=== PATIENT | male | born 1970 | race Caucasian/White ===

== ENCOUNTER 2019-09-12 12:50 | Emergency (ER) | payer MEDICARE, MEDICAID ==
[~2019-09-12] VITALS: Ht 175.3 cm; Wt 70.0 kg
[~2019-09-12 12:50] MED LIST: FINA5TAB42 PO; LORA2TAB PO; OXCA600T9 PO; QUET300T19 PO; TAMS0.4C32 PO
[2019-09-12 13:08] VITALS: BP 112/74
== END 2019-09-12 13:35 | disposition home or self-care (01) ==
LOC: ER 12:51
DX: Z00.00 Encounter for general adult medical examination without abnormal findings (principal); F15.10 Other stimulant abuse, uncomplicated; F20.9 Schizophrenia, unspecified; F12.90 Cannabis use, unspecified, uncomplicated; Z98.890 Other specified postprocedural states; Z72.89 Other problems related to lifestyle; Z56.0 Unemployment, unspecified; Z88.8 Allergy status to other drugs, medicaments and biological substances; Z79.899 Other long term (current) drug therapy
CPT/HCPCS: 99281

== ENCOUNTER 2020-09-19 14:41 | Emergency (ER) | payer MEDICARE, MEDICAID ==
[~2020-09-19] VITALS: Ht 175.3 cm; Wt 59.1 kg
[2020-09-19 15:28] LABS: BASOPHILS # (AUTO) 0.1 X10'3 (0-0.2); BASOPHILS % (AUTO) 0.6 % (0-1); EOSINOPHILS % (AUTO) 0.1 % (0-6); HEMATOCRIT 43.2 % (42.0-52.0); HEMOGLOBIN 14.8 g/dl (14.0-17.9); LYMPHOCYTES # (AUTO) 1.3 X10'3 (1.1-4.8); MEAN CORPUSCULAR HEMOGLOBIN 31.2 PG (27.0-31.0); MEAN CORPUSCULAR HGB CONC 34.2 g/dL (33.0-36.5); MEAN CORPUSCULAR VOLUME 91.2 FL (78-98); MEAN PLATELET VOLUME 8.9 FL (7.4-10.4); MONOCYTES # (AUTO) 0.9 X10'3 (0-0.9); MONOCYTES % (AUTO) 11.3 % (2-12); PLATELET COUNT 359 X10'3 (140-440); RED BLOOD COUNT 4.74 X10'6 (4.70-6.10); RED CELL DISTRIBUTION WIDTH 14.5 % (11.5-14.5); WHITE BLOOD COUNT 8.3 X10'3 (4.5-11.0)
[2020-09-19 15:39] VITALS: BP 142/83
[2020-09-19 15:40] LABS: ALANINE AMINOTRANSFERASE 29 U/L (12-78); ALBUMIN 4.1 G/DL (3.4-5.0); ALBUMIN/GLOBULIN RATIO 1.3 (1.1-1.5); ALKALINE PHOSPHATASE 116 IU/L (46-116); ANION GAP 11 (8-16); ASPARTATE AMINO TRANSFERASE 26 U/L (10-37); BILIRUBIN,TOTAL 0.8 MG/DL (0.1-1.0); BLOOD UREA NITROGEN 15 MG/DL (7-18); BUN/CREATININE RATIO 14.6 (5.4-32.0); CALCIUM 9.2 MG/DL (8.5-10.1); CHLORIDE 105 MMOL/L (99-107); CREATININE 1.03 MG/DL (0.60-1.10); GLUCOSE 82 MG/DL (70-104); POTASSIUM 3.6 MMOL/L (3.5-5.1); SODIUM 142 MMOL/L (135-145); TOTAL CARBON DIOXIDE 25.6 MMOL/L (24-32); TOTAL PROTEIN 7.2 G/DL (6.4-8.2); eGFR 76 ML/MIN
[2020-09-19 15:41] LABS: ETHANOL < 0.010 GM/DL (0.0-0.010)
[2020-09-19 17:01] LABS: URINE AMPHETAMINE SCREEN NEGATIVE (Neg); URINE BARBITUATE SCREEN NEGATIVE (Neg); URINE BENZODIAZEPINES SCREEN NEGATIVE (Neg); URINE CANNABINOID SCREEN NEGATIVE (Neg); URINE COCAINE SCREEN NEGATIVE (Neg); URINE METHADONE SCREEN NEGATIVE (Neg); URINE OPIATE SCREEN NEGATIVE (Neg); URINE PHENCYCLIDINE SCREEN NEGATIVE (Neg)
--- NOTE | 2020-09-19 17:01 | NUR ---
Received pt from main ER. Pt responding to internal stimuli and delusional thought content, talking nonstop nonsense to the wall. Pt is redirectable when he gets too loud.
--- NOTE | 2020-09-19 17:11 | NUR ---
PACKET FAXED TO [facility]
[2020-09-19 17:29] LABS: CLARITY,URINE CLEAR (Clear); COLOR,URINE YELLOW (Yellow); GLUCOSE, URINE NEGATIVE (Neg); KETONES,URINE 15 mg/dl (Neg); LEUKOCYTE ESTERASE ,URINE NEGATIVE (Neg); NITRITES, URINE NEGATIVE (Neg); OCCULT BLOOD,URINE NEGATIVE (Neg); PH,URINE 6.5 (4.8-8.0); PROTEIN,URINE NEGATIVE (Neg); UROBILINOGEN,URINE 0.2 E.U/dL (0.2-1.0)
[2020-09-19 17:31] LABS: UA COLLECTION TYPE URINAL
--- NOTE | 2020-09-19 17:35 | NUR ---
Pt walked to bathroom and then AWOL'd out the back door. Security notified and [employer] notified and notified. Security was unable to stop pt, but did observe him running across [address].
--- NOTE | 2020-09-19 17:38 | NUR ---
[facility] NOTIFIED OF PTS ELOPEMENT.
== END 2020-09-19 17:40 | disposition home or self-care (01) ==
LOC: ER 14:41
DX: F28 Other psychotic disorder not due to a substance or known physiological condition (principal); Z20.822 Contact with and (suspected) exposure to COVID-19; F20.9 Schizophrenia, unspecified; F12.90 Cannabis use, unspecified, uncomplicated; F15.90 Other stimulant use, unspecified, uncomplicated; Z56.0 Unemployment, unspecified; Z72.89 Other problems related to lifestyle; Z88.8 Allergy status to other drugs, medicaments and biological substances; Z79.899 Other long term (current) drug therapy
CPT/HCPCS: 36415; 80053; 80305; 80320; 81003; 85025; 87635; 99285; C9803

== ENCOUNTER 2020-12-11 12:34 | Inpatient (IN) | payer MEDICARE, MEDICAID ==
[~2020-12-11] VITALS: Ht 175.3 cm; Wt 66.8 kg
[~2020-12-11 12:34] MED LIST changes: -QUET300T19 PO; +QUET300T20 PO
[2020-12-11] MEDS ORDERED: LORazepam 2 mg/ml vial IM ONE (13:40)
[2020-12-11] MEDS ORDERED: haloperidol lactate 5mg/ml inj IM ONE (13:40)
[2020-12-11] MEDS ORDERED: diphenhydrAMINE 50 mg/ml inj IM ONE (13:40)
[2020-12-11 13:58] LABS: BASOPHILS % (AUTO) 0.8 % (0-1); EOSINOPHILS % (AUTO) 0.4 % (0-6); HEMATOCRIT 45.1 % (42.0-52.0); HEMOGLOBIN 15.3 g/dl (14.0-17.9); LYMPHOCYTES # (AUTO) 1.5 X10'3 (1.1-4.8); MEAN CORPUSCULAR HEMOGLOBIN 31.5 PG (27.0-31.0); MEAN CORPUSCULAR VOLUME 92.7 FL (78-98); MEAN PLATELET VOLUME 8.4 FL (7.4-10.4); MONOCYTES # (AUTO) 0.6 X10'3 (0-0.9); MONOCYTES % (AUTO) 9.7 % (2-12); NEUTROPHILS # (AUTO) 3.8 X10'3 (1.8-7.7); NEUTROPHILS % (AUTO) 64.1 % (42-75); PLATELET COUNT 359 X10'3 (140-440); RED BLOOD COUNT 4.86 X10'6 (4.70-6.10); RED CELL DISTRIBUTION WIDTH 13.6 % (11.5-14.5); WHITE BLOOD COUNT 5.9 X10'3 (4.5-11.0)
[2020-12-11 14:13] LABS: ALANINE AMINOTRANSFERASE 30 U/L (12-78); ALBUMIN 4.4 G/DL (3.4-5.0); ALBUMIN/GLOBULIN RATIO 1.5 (1.1-1.5); ALKALINE PHOSPHATASE 120 IU/L (46-116); ANION GAP 11 (8-16); ASPARTATE AMINO TRANSFERASE 31 U/L (10-37); BILIRUBIN,TOTAL 1.1 MG/DL (0.1-1.0); BLOOD UREA NITROGEN 9 MG/DL (7-18); BUN/CREATININE RATIO 10.2 (5.4-32.0); CHLORIDE 104 MMOL/L (99-107); CREATININE 0.88 MG/DL (0.60-1.10); GLUCOSE 100 MG/DL (70-104); POTASSIUM 3.6 MMOL/L (3.5-5.1); SODIUM 142 MMOL/L (135-145); TOTAL CARBON DIOXIDE 27.5 MMOL/L (24-32); TOTAL PROTEIN 7.4 G/DL (6.4-8.2); eGFR > 90 ML/MIN
[2020-12-11 14:23] LABS: ETHANOL < 0.010 GM/DL (0.0-0.010)
--- NOTE | 2020-12-11 14:38 | NUR ---
Pt transferred from main ER to ER Overflow, ambulatory and with ER staff. Pt changed into green scrubs and was cooperative. Pt's speech is disorganized with elements of reality. Pt was brought in on a 5150 for GD by Jr after being found in apt. with no food. Pt's [facility] worker was also with Pt when brought in. 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 Pt has no physical complaints at this time. Pt layed in bed and fell asleep quickly, after having received Ativan, benedryl, and haldol Im. Addendum: 12/11/20 at 1510 by DSALVATO Correction: 5150 was written by [facility].
[2020-12-11 14:40] LABS: URINE AMPHETAMINE SCREEN NEGATIVE (Neg); URINE BARBITUATE SCREEN NEGATIVE (Neg); URINE BENZODIAZEPINES SCREEN NEGATIVE (Neg); URINE CANNABINOID SCREEN NEGATIVE (Neg); URINE COCAINE SCREEN NEGATIVE (Neg); URINE METHADONE SCREEN NEGATIVE (Neg); URINE OPIATE SCREEN NEGATIVE (Neg); URINE PHENCYCLIDINE SCREEN NEGATIVE (Neg)
[2020-12-11 14:52] LABS: CLARITY,URINE CLEAR (Clear); COLOR,URINE YELLOW (Yellow); GLUCOSE, URINE NEGATIVE (Neg); KETONES,URINE NEGATIVE (Neg); LEUKOCYTE ESTERASE ,URINE NEGATIVE (Neg); NITRITES, URINE NEGATIVE (Neg); OCCULT BLOOD,URINE NEGATIVE (Neg); PROTEIN,URINE NEGATIVE (Neg); UROBILINOGEN,URINE 0.2 E.U/dL (0.2-1.0)
[2020-12-11 14:55] LABS: UA COLLECTION TYPE NON-SPECIFIED
[2020-12-11] MEDS ORDERED: LOXA25CA PO (16:03)
--- NOTE | 2020-12-11 19:56 | NUR ---
The patient was awakened for his evening meal. He stated he was here to be stabilized on his medications. He denies physical complaints.
[2020-12-11] MEDS: LOXAPINE SUCCINATE 25 MG CAPSULE PO SCH (20:52)
--- NOTE | 2020-12-11 21:17 | NUR ---
The patient appears to be sleeping at this time.
--- NOTE | 2020-12-11 22:32 | NUR ---
The patient appears to be sleeping
--- NOTE | 2020-12-12 00:07 | NUR ---
The patient appears to be sleeping
--- NOTE | 2020-12-12 02:00 | NUR ---
The patient appears to be sleeping
--- NOTE | 2020-12-12 04:01 | NUR ---
The patient appears to be sleeping
--- NOTE | 2020-12-12 04:54 | NUR ---
Patient up to use the bathroom. He is refusing to have a covid test.
--- NOTE | 2020-12-12 07:00 | NUR ---
Received pt asleep in bed without signs of distress.
[2020-12-12] MEDS: LOXAPINE SUCCINATE 25 MG CAPSULE PO SCH ×2 (08:24→20:00)
[2020-12-12] MEDS ORDERED: LORazepam 1 MG tablet PO ONE (08:35)
--- NOTE | 2020-12-12 09:00 | NUR ---
Pt up for breakfast and was cooperative with am medications. Around 0835, pt just bolted towards the back door and after being stopped by staff, he was able to be verbally redirected back to his bed. notified and gave order for ativan 1mg PO which was given.
--- NOTE | 2020-12-12 11:00 | NUR ---
Pt awoke once to drink some water, but otherwise has been sleeping.
--- NOTE | 2020-12-12 13:00 | NUR ---
County worker and psychologist came to assess pt. Pt was sedated and kept falling asleep during assessment. Pt sleeping without complaints since they left.
--- NOTE | 2020-12-12 15:00 | NUR ---
Pt sitting up in bed now eating the lunch he has slept through. Pt cooperative with COVID nasal swab.
--- NOTE | 2020-12-12 17:00 | NUR ---
Pt lying asleep in bed in no distress.
[2020-12-12] MEDS ORDERED: clonazePAM 0.5mg tablet PO PRN (17:55)
--- NOTE | 2020-12-12 19:00 | NUR ---
The patient is restless and stating he needed benadryl. He is focused on marlo able to back to his own place. He is disheveled. He gives no eye contact.
[2020-12-12] MEDS: clonazePAM 0.5mg tablet PO SCH (20:00)
--- NOTE | 2020-12-12 21:03 | NUR ---
The patient is refusing all of his HS medications stating he doesn't need them and that "I'm my own person" and that he doesn't need medications. He has poor insight and judgement. He is not agitated and he could not be coaxed into taking his medications
--- NOTE | 2020-12-12 23:34 | NUR ---
The patient appears to be sleeping but awake periodically. He continues to refuse medications.
--- NOTE | 2020-12-13 00:37 | NUR ---
The patient appears to be sleeping
--- NOTE | 2020-12-13 02:45 | NUR ---
The patient appears to be sleeping
--- NOTE | 2020-12-13 03:56 | NUR ---
The patient up periodically to use the bathroom. He is currently resting on his bed.
--- NOTE | 2020-12-13 05:31 | NUR ---
The patient currently appears to be sleeping but has been awake frequently during the night
[2020-12-13] MEDS: diphenhydrAMINE 25mg capsule PO PRN ×2 (05:49→19:53)
--- NOTE | 2020-12-13 05:52 | NUR ---
The patient awakened for vital signs and complain of EPS. Patient's tongue slightly protruding. He was given benadryl
--- NOTE | 2020-12-13 06:16 | NUR ---
The patient is clearly irritable and angry. He is talking to himself. He did accept PRN bertinpin
[2020-12-13] MEDS: clonazePAM 0.5mg tablet PO SCH ×2 (08:00→19:52)
[2020-12-13] MEDS: LOXAPINE SUCCINATE 25 MG CAPSULE PO SCH ×2 (08:54→19:53)
[2020-12-13] MEDS ORDERED: benztropine 1 mg/ml 2ml ampule IM ONE (15:45)
[2020-12-13] MEDS ORDERED: diphenhydrAMINE 50 mg/ml inj IM ONE (15:45)
--- NOTE | 2020-12-13 15:45 | NUR ---
Dr Stevenson notified of patient complaints of dystonic movement of his tongue. Orders received.
--- NOTE | 2020-12-13 19:25 | NUR ---
Pt has been asleep since start of shift.
--- NOTE | 2020-12-13 21:52 | NUR ---
Pt awakened for HS meds. Per pt he has not been asleep. Pt stated the whole 5150 was a mistake "it was brought on by someone who was not paying attention." Pt repeated several times he was just floating on a air mattress on the bowen" He was unable to provide any more details abour how he came to be here. Pt cooperative and med compliant.
--- NOTE | 2020-12-14 00:29 | NUR ---
Pt up x1 independantly to BR. The rest of the time the Pt appears to be sleeping although it has been noisy on the unit due to a confused pt.
[2020-12-14] MEDS: clonazePAM 0.5mg tablet PO SCH ×2 (07:42→18:58)
[2020-12-14] MEDS: LOXAPINE SUCCINATE 25 MG CAPSULE PO SCH ×2 (07:42→18:58)
--- NOTE | 2020-12-14 08:12 | NUR ---
0600 recieved report from Sunita GALVAN, patient resting most of the night. Patient denies all reason he was brouight to ER. 0800 AM medication passed, patient states "today is go home day rigth?", this engineering writer informed patietn that he will be seen today and this topic will be discussed.
--- NOTE | 2020-12-14 08:57 | NUR ---
0900 laxmi is sleeping in bed, just finished 100% of breakfast
--- NOTE | 2020-12-14 08:57 | NUR ---
0900 [facility] here, Sher is updating his 5150 as the [facility] is planning on conserving patient due to failed out patient treatment. Patient understood the news and was not happy. Patient did go back to sleep after [facility] finished interview.
--- NOTE | 2020-12-14 11:30 | NUR ---
Patient is resting quietly, appears to be sleeping
--- NOTE | 2020-12-14 13:25 | NUR ---
1325 Patient eatting lunch at bed side Alert and oriented to Name, place but not situation, patient states today should be the day I am leaving, it should be know that [facility] is planning on conserving patient due to failed out patiet treatment plans.
--- NOTE | 2020-12-14 13:42 | NUR ---
Ginger from [facility] states [facility] accepted patient
--- NOTE | 2020-12-14 15:47 | NUR ---
Patient is resting quietly but easily arrouse when spoke to.
[2020-12-14] MEDS ORDERED: diphenhydrAMINE 25mg capsule PO ONE (16:35)
--- NOTE | 2020-12-14 16:37 | NUR ---
Patient c/o Dr. Mihaela boyd V/O Benadryl 25mg po one time, medication administered patient swallowed with a glass of water.
--- NOTE | 2020-12-14 16:40 | NUR ---
Mother called to inform patient that he left his wallet in her car.
--- NOTE | 2020-12-14 17:20 | NUR ---
Patient resting in bed stated that the benadryl helped hi "stiff tounge"
[2020-12-14] MEDS ORDERED: acetaminophen 325mg tablet PO PRN (19:45)
[2020-12-14] MEDS ORDERED: magnesium hydroxide 30ml (MOM) UD suspension PO PRN (19:45)
[2020-12-14] MEDS ORDERED: loperamide 2mg capsule PO PRN (19:45)
[2020-12-14] MEDS ORDERED: mag hydrox/Alum hydrox/simeth 30ml oral suspension PO PRN (19:45)
[2020-12-14 20:00] VITALS: BP 103/63
--- NOTE | 2020-12-14 20:31 | NUR ---
[facility] ADMISSION NOTE: LEGAL HOLD: 5150 for GD Psych Hx: Schizophrenia, mood disorder, Meth use. Med Hx: No significant medical issues. S/P: Rt ankle repair, appendectomy. REASON FOR ADMISSION: Clients mother contacted EMS because the client was not eating, drinking, or performing basic ADL's. Client refused to be transported to the ED by EMS. [employer] was notified and brought client to hospital. The client was agitated upon arrival to the ED, and received IM PRN meds for agitation. Client is known to [facility] and has had prior admissions. THIS SHIFT: Client arrived on unit at 19:48, accompanied by Alexander Escamilla. His personal belongings were inventoried and a 2 RN Skin assessment was performed by Sunita Varghese RN and this RN. Client declined shower. He is disheveled and has poor personal hygiene. He will be encouraged to shower. Client had snack and was shown to his room. He is pleasant and cooperative. Client moves and speaks slowly. His affect is blunted and his mood appears depressed.
[2020-12-15 07:40] LABS: HEMOGLOBIN A1C 5.5 % (4.5-6.2)
[2020-12-15 07:43] LABS: CHOL/HDL RATIO 3.3 (0.00-4.99); CHOLESTEROL 163 MG/DL (0-200); HDL CHOLESTEROL 50 MG/DL (35-60); LDL CHOLESTEROL 86 MG/DL (50-100); TRIGLYCERIDES 82 MG/DL (20-135)
[2020-12-15 08:00] VITALS: BP 104/68
[2020-12-15] MEDS ORDERED: clonazePAM 0.5mg tablet PO SCH (08:00)
[2020-12-15] MEDS: nicotine 21mg patch - 24 hr TD SCH (08:39)
[2020-12-15] MEDS: LOXAPINE SUCCINATE 25 MG CAPSULE PO SCH ×2 (08:39→20:49)
[2020-12-15] MEDS: clonazePAM 0.5mg tablet PO SCH ×2 (08:39→20:49)
[2020-12-15] MEDS: NICOTINE POLACRILEX 2 MG LOZENGE BC PRN ×5 (08:47→20:49)
--- NOTE | 2020-12-15 15:00 | NUR ---
Malnutrition consult: Pt admitted on 5150 w/ history of meth use. Pt noted to be transient and not consistently eating or drinking (no timeframe given). Pt is able to eat 100% of regular diet since admission. Per ED noted, pt WD/WN. EMR shows wt loss of 14kg since August 2019, though current wt not scaled. No edema noted. At this time, pt does not meet minimum 2 criteria for malnutrition given uncertainty of wt and intake hx. Will continue to monitor. Addendum: 12/15/20 at [address] Amended: Links added.
[2020-12-15] MEDS ORDERED: benztropine 1 mg/ml 2ml ampule IM ONE (15:20)
--- NOTE | 2020-12-15 17:05 | NUR ---
Nursing progress note: LEGAL HOLD: 5150 for GD Client on Involuntary status for GD Report received from nurse with use of SBAR: Jeannie Chang RN Why they are here: Clients mother contacted EMS because the client was not eating, drinking, or performing basic ADL's. Client refused to be transported to the ED by EMS. [employer] was notified and brought client to hospital. The client was agitated upon arrival to the ED, and received IM PRN meds for agitation. Client is known to [facility] and has had prior admissions. Diagnosis/presenting symptoms: Schizophrenia, mood disorder, Meth use. Assessment: What has happened this shift: Pt awake at start of shift. Pacing hallway. Withdrawn but answers direct questions. Isolates in his room, but comes out into common areas when prompted. In afternoon patients tongue is out. Pt c/o feeling like his mouth is full of tongue. IM Cogentin given which appears effective for EPS. S/I, H/I: denies A/VH: denies Sleep: 8.25 hrs per NOC ADL's: Independent with prompting Group attendance: N/A Were meds taken: yes Any med S/E: tongue sticking out. Pt c/o feeling like his mouth is full of tongue. IM Cogentin given which appears effective Mental Status Exam: Appearance: Disheveled, poor hygiene, wearing hospital scrubs Eye contact: Good Behavior: Cooperative Speech: Clear, quiet Mood: Depressed Affect: Congruent with mood Thought process: disorganized Thought Content: Poverty of thought. Cognition: A/O x3 Insight: Poor Judgment: Poor Interventions: PRN's used: Nicotine lozenge Therapeutic interventions: Maintained a safe and supportive environment, ensured contract for safety, provided clear and simple instructions, provided direction and encouragement as needed, encouraged participation on the unit, medication administration, and maintained Q 15min safety checks. Restraints/seclusion/emergency medication: IM Cogentin given for EPS Justification: Pt require medication adjustments as well as a safe and supportive environment.
[2020-12-15 20:34] VITALS: BP 123/78
--- NOTE | 2020-12-16 00:48 | NUR ---
Nursing progress note: LEGAL HOLD: 5150 for GD Client on Involuntary status for GD Report received from nurse with use of SBAR: COLE Vitale Why they are here: Clients mother contacted EMS because the client was not eating, drinking, or performing basic ADL's. Client refused to be transported to the ED by EMS. [employer] was notified and brought client to hospital. The client was agitated upon arrival to the ED, and received IM PRN meds for agitation. Client is known to [facility] and has had prior admissions. Diagnosis/presenting symptoms: Schizophrenia, mood disorder, Meth use. Assessment: What has happened this shift: Pt up pacing in mccarthy at start of shift, pauses occasionally to have animated conversations with his reflection in the window. He also spent some time talking to one of pictures in the mccarthy. 1:1 Pt admitted to auditory and visual hallucinations. "I always hear and see things, I'm 50 years old I've had mental illness all my life." Pt did not go into detail about his hallucinations. Pt maintains he should not be here. "I'm only here because my mom thinks I'm not eating" When it was pointed out to the pt that he was very thin he said. "I eat 2,500 calories a day." Pt was pleasant and cooperative with care. S/I, H/I: denies A/VH: both Sleep: asleep at this time ADL's: Independent with prompting Group attendance: N/A Were meds taken: yes Any med S/E: No tongue thrusting or other side effects this shift. Mental Status Exam: Appearance: showered today, thin, wearing hospital scrubs Eye contact: Good Behavior: Cooperative Speech: Clear, quiet Mood: Depressed Affect: Congruent with mood Thought process: disorganized Thought Content: Poverty of thought. Cognition: A/O x3 Insight: Poor Judgment: Poor Interventions: PRN's used: Nicotine lozenge Therapeutic interventions: Maintained a safe and supportive environment, ensured contract for safety, provided clear and simple instructions, provided direction and encouragement as needed, encouraged participation on the unit, medication administration, and maintained Q 15min safety checks. Restraints/seclusion/emergency medication: IM Cogentin given for EPS Justification: Pt require medication adjustments as well as a safe and supportive environment.
[2020-12-16] MEDS: NICOTINE POLACRILEX 2 MG LOZENGE BC PRN ×5 (06:07→17:20)
[2020-12-16 08:00] VITALS: BP 97/67
[2020-12-16] MEDS: LOXAPINE SUCCINATE 25 MG CAPSULE PO SCH ×2 (08:01→20:27)
[2020-12-16] MEDS: clonazePAM 0.5mg tablet PO SCH ×2 (08:01→20:27)
[2020-12-16] MEDS: nicotine 21mg patch - 24 hr TD SCH (08:02)
--- NOTE | 2020-12-16 17:37 | NUR ---
Nursing progress note: LEGAL HOLD: 5150 for GD Client on Involuntary status for GD Report received from nurse with use of SBAR: COLE Mackenzie Why they are here: Clients mother contacted EMS because the client was not eating, drinking, or performing basic ADL's. Client refused to be transported to the ED by EMS. [employer] was notified and brought client to hospital. The client was agitated upon arrival to the ED, and received IM PRN meds for agitation. Client is known to [facility] and has had prior admissions. Diagnosis/presenting symptoms: Schizophrenia, mood disorder, Meth use. Assessment: What has happened this shift: Pt awake at start of shift. Pacing hallway and asking for coffee. Pt. is socially withdrawn but visible in the milieu during the AM. Pt. isolated to his room in the afternoon and found napping. Pt. denies hearing voices but is frequently seen talking to himself and appears to be responding to internal stimuli. Pt. gives minimal answers to this RNs questions. S/I, H/I: denies A/VH: denies Sleep: 7 hrs per NOC shift report. Pt. naps intermittently throughout the day. ADL's: Independent with prompting Group attendance: N/A Were meds taken: Yes Any med S/E: None reported or observed. Mental Status Exam: Appearance: Disheveled, wearing casual attire. Eye contact: Good Behavior: Cooperative Speech: Minimal but otherwise WNL. Mood: Euthymic Affect: Congruent with mood Thought process: Thought blocking. Thought Content: Poverty of thought. Cognition: A/O X3 Insight: Poor Judgment: Poor Interventions: PRN's used: Nicotine lozenge Therapeutic interventions: Maintained a safe and supportive environment, ensured contract for safety, provided clear and simple instructions, provided direction and encouragement as needed, encouraged participation on the unit, medication administration, and maintained Q 15min safety checks. Restraints/seclusion/emergency medication: IM Cogentin given for EPS Justification: Pt require medication adjustments as well as a safe and supportive environment.
[2020-12-16 19:22] VITALS: BP 97/59
--- NOTE | 2020-12-16 23:01 | NUR ---
Nursing Progress Note: Legal hold: 5150 for grave disability Report received from Iam GALVAN with use of SBAR Why they are here: Clients mother contacted EMS because the client was not eating, drinking, or performing basic ADL's. Client refused to be transported to the ED by EMS. [employer] was notified and brought client to hospital. The client was agitated upon arrival to the ED, and received IM PRN meds for agitation. Client is known to [facility] and has had prior admissions. Assessment What has happened this shift: The patient was isolative to his bed throughout the evening but did get up for the evening snack. Once up in the general patient area he did not socialize or interact with others and once he was done eating his snack he immediately went back to bed. The patient appeared clean and well groomed and he stated that he did shower earlier in the day. He was cooperative with the evening nursing assessment but gave no eye contact. His affect was flat and his speech was minimal and monotone. He stated that "I'm always tired" When asked about his concentration and focus he stated that it was 30% of what it normally was. He was able to state what medications he was on. He denied medication side effects. There was no EPS noted. He had no protruding of his tongue. When asked if he believed he had a mental illness he simple stated, "I don't want to talk about that" He stated that he is hoping to be able to return to his home and that he planned to fight the conservatorship. When asked why he was here he replied that he had made an error in trying to run away from [facility] because he believed they were going to put him on a bus to [place]. He described his mood as "okay" He denies thoughts to harm himself or others. His insight and judgement are impaired. He has not had any behaviors that required redirection from staff. He was medication compliant. Justification of Continued Inpatient Treatment: Medication changes continue. The plan for the patient is be placed on an [facility] conservatorship as he has been unable to sustain himself in the community.
[2020-12-17] MEDS: NICOTINE POLACRILEX 2 MG LOZENGE BC PRN ×5 (07:27→18:54)
[2020-12-17 07:47] VITALS: BP 114/71
[2020-12-17] MEDS: clonazePAM 0.5mg tablet PO SCH ×2 (07:57→20:56)
[2020-12-17] MEDS: LOXAPINE SUCCINATE 25 MG CAPSULE PO SCH ×2 (07:57→20:00)
--- NOTE | 2020-12-17 07:58 | NUR ---
PSYCHOSOCIAL ASSESSMENT Iam is a 50 y/o single male who was placed on 5150 by [facility] for grave disability. He was brought to [facility] by his mother for an evaluation. He was attending to internal stimuli, had difficulty answering questions, and did not have any food. His mother was providing him with food and is no longer going to offer 3rd democrat support. Iam was unable to articulate how he would obtain food without support from his mother or [employer], "I don't know, I don't know". He had stopped taking his psychiatric medications. He also has a history of drug abuse. Iam has a long history of mental health treatment at [facility]. He was previously on [facility] 05/2015 and was released in 2017. He most recently has been homeless and staying at various hotels.He stated he has been living at [facility] for the past 18 months and believes his payee has already paid for the month of Dec.Track Production Engineer will call [facility] to inquire if this is the case. Iam presents with paranoid delusions, auditory and visual hallucinations, and is often observed to be attending to internal stimuli. He reported he has MARILOU, "I am known for my MARILOU...I am known as [facility] [employer]". He also stated, "I am an apparition study...I see apparitions". He explained apparitions are "human beings out of bodies" and went on to explain the various colors associated with apparitions. He also stated he has telepathy, "ether telepathy...I am an ether warcraft". He reported he does not want to see Dr Bentley at [facility] because Dr Bentley is from [place]. Iam stated, "I do not want ties to [place], I do not trust [employer]. I don't trust what [employer] will do to my television...they will reek havoc". He also stated, "people are invested in giving me flack". Iam reported he can provide for himself. He reported his mom brings him food and if not his mom then mental health does. It is proposal writer's understanding that his mom is withdrawing 3rd democrat support. Prior to 5150 Iam had not eaten in a couple days because no one brought him food. Iam is quite thin and emaciated. PLAN: Track Production Engineer will inquire if Iam has a room at [facility] TESSY Slade Addendum: 12/17/20 at 0801 by Marley Joseph SS Amended: Links added.
[2020-12-17] MEDS: nicotine 21mg patch - 24 hr TD SCH (08:00)
--- NOTE | 2020-12-17 08:54 | NUR ---
LPS REFERRAL [facility] and [facility] are submitting LPS paperwork on Iam. Spoke to Ofelia Guadarrama, Msw at [facility]. She reported Iam is not able to return to [facility]. His mother was renting the room for him and she is no longer willing to assist him. She reported Iam has trashed the room. He also exhibits extreme paranoia and screams a lot which is another reason he is not able to return to [facility]. His mother and [employer] have been supplying him with food. He has been throwing away food due to paranoia that it is poisoned. They have tried to put Iam on multiple 5150's in the last couple months and he either barricades himself in his room or takes off and runs away. Iam has lost quite a bit of weight recently due to not eating. He likely will say he has been eating in the motel but he really has not been. He does not utilize community resources for food either (even though he may say he can go to the [employer] for food). [facility] staff feel strongly that Iam is currently in need of conservatorship and is gravely disabled. His mother is no longer willing to offer 3rd constitution party support. Transformation Architect will pass this along to tx team. TESSY Slade
[2020-12-17] MEDS: benztropine 1mg tablet PO SCH ×2 (14:58→20:56)
--- NOTE | 2020-12-17 15:11 | NUR ---
Nursing progress note: LEGAL HOLD: 5150 for GD Client on Involuntary status for GD Report received from nurse with use of SBAR: COLE Mackenzie Why they are here: Clients mother contacted EMS because the client was not eating, drinking, or performing basic ADL's. Client refused to be transported to the ED by EMS. [employer] was notified and brought client to hospital. The client was agitated upon arrival to the ED, and received IM PRN meds for agitation. Client is known to [facility] and has had prior admissions. Diagnosis/presenting symptoms: Schizophrenia, mood disorder, Meth use. Assessment: What has happened this shift: Patient isolated to his room all day long. Iam did eat in the great room with peers. Patient answered all questions with yes and no answers. Patient continues to have mental telepathy conversation with old family and his mom. Today Iam can not come up with a reliable discharge plan with out third libertarian assistance. 1500 patient reports that he is gonna have EPS soon, "my tongue is going to stick pout, just wait and see". Dr. Fleming informed, Cogentin started as a BID order, until patient is use to taking his medication again due to the fact that he was off his mediation for a long period of time. Medication education given. A/VH: denies Sleep: Pt. naps intermittently throughout the day. ADL's: Independent with prompting Group attendance: N/A Were meds taken: Yes Any med S/E: Per patient "my tongue is going to stick out" Mental Status Exam: Appearance: Disheveled, wearing casual attire. Eye contact: Good Behavior: Cooperative Speech: Minimal but otherwise WNL. Mood: Euthymic Affect: Congruent with mood Thought process: Thought blocking. Thought Content: Poverty of thought. Cognition: A/O X3 Insight: Poor Judgment: Poor Interventions: PRN's used: Nicotine lozenge and started Cogentin as a give Therapeutic interventions: Maintained a safe and supportive environment, ensured contract for safety, provided clear and simple instructions, provided direction and encouragement as needed, encouraged participation on the unit, medication administration, and maintained Q 15min safety checks. Restraints/seclusion/emergency medication: IM Cogentin given for EPS Justification: Patient continues to be GD, patient is unable to make a safe discharge plan with out third libertarian assistance, patients mother is no longer going to assist patient is housing or food. Patient is too disorganized to navigate community resources if discharged today.
--- NOTE | 2020-12-17 16:02 | NUR ---
Served Brian with his [id number] paperwork, he accepted them without complaint and did not want anyone called. He did not appear upset but rather tired. He signed the paper and lay back down Addendum: 12/17/20 at 1640 by Brigid Villalba RN Right patient chart, wrong name. Served Iam with his [id number] paperwork.
[2020-12-17 20:24] VITALS: BP 110/87
[2020-12-17] MEDS: traZODone 50mg tablet PO PRN (20:56)
--- NOTE | 2020-12-17 22:01 | NUR ---
Nursing progress note: LEGAL HOLD: 5250 for GD Client on Involuntary status for GD Report received from Iam GALVAN with use of SBAR Why they are here: Clients mother contacted EMS because the client was not eating, drinking, or performing basic ADL's. Client refused to be transported to the ED by EMS. [employer] was notified and brought client to hospital. The client was agitated upon arrival to the ED, and received IM PRN meds for agitation. Client is known to [facility] and has had prior admissions. Diagnosis/presenting symptoms: Schizophrenia, mood disorder, Meth use. Assessment: What has happened this shift: Patient was walking up and down hallway looking very lost. Patient was antisocial and quiet. Patient kept laying down for less than five minutes then getting up and walking up and down hallway. Patient repeated this for 2 hrs before finally laying down. Patient did participate in snacks and allowed tech to get vitals. Patient did not want to take any of his medications do to a side effect he said he had to the Ativan this morning. Patient kept repeating this. Patient was finally persuaded to take medication by nurse. Nurse had to explain to patient he was in the process of being conserved and that wether or not he took his medications had an effect on that. The patient agreed to take his medications including his PRN trazodone but not his Ativan. Patient had an incontinent episode and was assisted in being cleaned up. Patient was offered pullup briefs but patient stated he didn't need them, they were left with patient just in case he decides to wear them. S/I, H/I: denies A/VH: denies Sleep: ADL's: Independent with prompting Group attendance: N/A Were meds taken: Yes Any med S/E: None reported or observed. Mental Status Exam: Appearance: Disheveled Eye contact: Good Behavior: Cooperative Speech: Minimal but otherwise WNL. Mood: Euthymic Affect: Congruent with mood Thought process: Thought blocking. Thought Content: Poverty of thought. Cognition: A/O X3 Insight: Poor Judgment: Poor Interventions: PRN's used: Nicotine lozenge, Trazodone Therapeutic interventions: Maintained a safe and supportive environment, ensured contract for safety, provided clear and simple instructions, provided direction and encouragement as needed, encouraged participation on the unit, medication administration, and maintained Q 15min safety checks. Restraints/seclusion/emergency medication: IM Cogentin given for EPS Justification: Pt require medication adjustments as well as a safe and supportive environment.
[2020-12-18] MEDS: NICOTINE POLACRILEX 2 MG LOZENGE BC PRN ×8 (03:07→20:28)
[2020-12-18 07:30] VITALS: BP 107/68
[2020-12-18] MEDS: clonazePAM 0.5mg tablet PO SCH ×2 (07:52→20:21)
[2020-12-18] MEDS: nicotine 21mg patch - 24 hr TD SCH (07:55)
[2020-12-18] MEDS: LOXAPINE SUCCINATE 25 MG CAPSULE PO SCH ×2 (08:00→20:00)
[2020-12-18] MEDS: LORazepam 1 MG tablet PO PRN ×2 (09:11→15:54)
--- NOTE | 2020-12-18 09:43 | NUR ---
Initial: Pt admitted on 5150 w/ history of meth use. Pt noted to be transient and not consistently eating or drinking (no timeframe given). Pt is able to eat 100% of regular diet since admission. Pt selectively compliant w/ medications. [facility] 12/17. No nutritional intervention at this time, will continue to monitor. Recs: 1. Continue Regular diet as tolerated 2. Bowel care per rx 3. Weekly wts Addendum: 12/18/20 at [address] Amended: Links added.
--- NOTE | 2020-12-18 15:09 | NUR ---
PROBABLE CAUSE HEARING Patients Name: Iam Conklin Admission Date: 12/14/20 Date of 5150: 12/11/20 Written by: [facility] Criteria: GD Summary of Facts: Winnie mother reported to star team that she could not locate her son who she had been buying food for while he lived at a motel, she had not heard from him for a week. Iam cannot meet his needs for f/c/s due to MH, he does not use his resources to buy food. Date of 525: 12/17/20 Written by: Johnny Criteria: GD Summary of Facts: Iam was staying at [facility]. He has been barricading himself in his room, yelling at his voices, and not eating or drinking for fear that the food has been poisoned he is not doing well even with third constitution party aide. He is reportedly not taking medications Diagnosis: schizoaffective d/o, bipolar type Behavior during past 48 HRS: Goes between periods of isolating in his room versus pacing rapidly up and down the unit. His plan for housing is to go back to where he was which is not possible. He is intermittently refusing meds. FOOD: 100 SLEEPIN ADLS: Needs prompting SNF: homeless MEDICATION DOSAGE FREQUENCY DURATION Cogentin 1 mg po bid Klonopin 0.25 mc po bid Loxapine 25 mg po bid Ativan 1 mg prn last took today Trazodone 50 mg prn last took last night Addendum: 12/18/20 at 1636 by Brigid Villalba RN Iam attended, contested, and lost his hearing. He was erratic during the hearing, was talking over the administrative law judge and the patients rights advocate and arguing with them. In the middle of explaining why he was ready to dc he suddenly stated "I have MARILOU MARILOU is not good for me. I was watching tv but they didn't like that I was prechosen". At that point he was redirected by the correctional program officer
[2020-12-18] MEDS: acetaminophen 325mg tablet PO PRN (17:48)
--- NOTE | 2020-12-18 18:11 | NUR ---
Nursing progress note: LEGAL HOLD: 5150 for GD Client on Involuntary status for GD Report received from nurse with use of SBAR: COLE Mackenzie Why they are here: Clients mother contacted EMS because the client was not eating, drinking, or performing basic ADL's. Client refused to be transported to the ED by EMS. [employer] was notified and brought client to hospital. The client was agitated upon arrival to the ED, and received IM PRN meds for agitation. Client is known to [facility] and has had prior admissions. Diagnosis/presenting symptoms: Schizophrenia, mood disorder, Meth use. Assessment: What has happened this shift: Pt awake at start of shift. Pacing hallway and asking for coffee. Pt. refused Loxapine but took his Klonopin. Pt. ate all meals in the community room. Pt. became increasingly agitated throughout the day leading up to his court hearing. Pt. given PRN Ativan 1mg with minimal effect. Pt. talking to himself quite loudly, pt. states, Ill be discharged The TAD office I need to talk to the TAD office. The court upheld pt.s hold and pt. became increasingly agitated, talking loudly to himself. Pt. given Ativan 1mg po with moderate effect. S/I, H/I: denies A/VH: denies Sleep: Pt. slept 5 hrs per NOC shift report. Pt. did not appear to nap during the day. ADL's: Independent with prompting Group attendance: N/A Were meds taken: Yes Any med S/E: Denies Mental Status Exam: Appearance: Disheveled, wearing casual attire. Eye contact: Good. Behavior: Cooperative. Speech: Minimal but otherwise WNL. Mood: Anxious Affect: Congruent with mood Thought process: Thought blocking. Thought Content: Poverty of thought. Cognition: A/O X3 Insight: Poor Judgment: Poor Interventions: PRN's used: Ativan 1mg po x2 Therapeutic interventions: Maintained a safe and supportive environment, ensured contract for safety, provided clear and simple instructions, provided direction and encouragement as needed, encouraged participation on the unit, medication administration, and maintained Q 15min safety checks. Restraints/seclusion/emergency medication: IM Cogentin given for EPS Justification: Pt require medication adjustments as well as a safe and supportive environment.
[2020-12-18 19:13] VITALS: BP 128/76
[2020-12-18] MEDS: benztropine 1mg tablet PO SCH (20:20)
[2020-12-19] MEDS: traZODone 50mg tablet PO PRN ×2 (02:16→20:21)
[2020-12-19] MEDS: NICOTINE POLACRILEX 2 MG LOZENGE BC PRN ×6 (02:16→20:34)
--- NOTE | 2020-12-19 05:07 | NUR ---
Nursing progress note: LEGAL HOLD: 5150 for GD Client on Involuntary status for GD Report received from nurse with use of SBAR: COLE Mackenzie Why they are here: Clients mother contacted EMS because the client was not eating, drinking, or performing basic ADL's. Client refused to be transported to the ED by EMS. [employer] was notified and brought client to hospital. The client was agitated upon arrival to the ED, and received IM PRN meds for agitation. Client is known to [facility] and has had prior admissions. Diagnosis/presenting symptoms: Schizophrenia, mood disorder, Meth use. Assessment: What has happened this shift: Pt awake at start of shift. Pacing hallway and appears to be responding to internal stimuli, talking loudly to himself. Pt. asking for nicotine lozenge. Pt. 1:1 done at bedside, pt. reports seeing apparitions, pt. states, Kasey comes and sleeps next to me motioning with his hand to his bed. Pt. also reports hearing voices that are having conversations with him. Pt. refused Loxapine, reporting that he wants to be put back on Clozaril. Pt.'s provider notified. Pt. took his Cogentin and Klonopin. Pt. awoke at 0200 and pacing mccarthy talking to himself and laughing inappropriately. Pt. given nicotine lozenge and Trazadone PRN and went back to sleep for the rest of NOC shift. S/I, H/I: denies A/VH: denies Sleep: See NOC shift sleep hours. ADL's: Independent with prompting Group attendance: N/A Were meds taken: Yes Any med S/E: Denies Mental Status Exam: Appearance: Disheveled, wearing casual attire. Eye contact: Good. Behavior: Cooperative. Speech: Pt. talks to himself at length, but when engaged with staff gives talks minimally, but otherwise WNL. Mood: Anxious Affect: Congruent with mood Thought process: Thought blocking, auditory hallucinations. Thought Content: Responding to voices. Cognition: A/O X3 Insight: Poor Judgment: Poor Interventions: PRN's used: Trazadone x1, Nicotine Lozenge x1 Therapeutic interventions: Maintained a safe and supportive environment, ensured contract for safety, provided clear and simple instructions, provided direction and encouragement as needed, encouraged participation on the unit, medication administration, and maintained Q 15min safety checks. Restraints/seclusion/emergency medication: Justification: Pt requires medication adjustments as well as a safe and supportive environment.
[2020-12-19 07:28] VITALS: BP 118/59
[2020-12-19] MEDS: benztropine 1mg tablet PO SCH ×2 (07:38→20:22)
[2020-12-19] MEDS: nicotine 21mg patch - 24 hr TD SCH (07:38)
[2020-12-19] MEDS: clonazePAM 0.5mg tablet PO SCH ×2 (07:38→20:22)
[2020-12-19] MEDS: LOXAPINE SUCCINATE 25 MG CAPSULE PO SCH ×3 (08:00→20:21)
[2020-12-19] MEDS: LORazepam 1 MG tablet PO PRN ×2 (08:47→20:48)
[2020-12-19 10:47] LABS: BASOPHILS % (AUTO) 0.7 % (0-1); EOSINOPHILS % (AUTO) 0.4 % (0-6); HEMATOCRIT 42.1 % (42.0-52.0); HEMOGLOBIN 14.1 g/dl (14.0-17.9); LYMPHOCYTES # (AUTO) 1.1 X10'3 (1.1-4.8); LYMPHOCYTES % (AUTO) 18.7 % (21-51); MEAN CORPUSCULAR HEMOGLOBIN 31.2 PG (27.0-31.0); MEAN CORPUSCULAR HGB CONC 33.5 g/dL (33.0-36.5); MEAN PLATELET VOLUME 9.5 FL (7.4-10.4); MONOCYTES # (AUTO) 0.5 X10'3 (0-0.9); MONOCYTES % (AUTO) 8.2 % (2-12); NEUTROPHILS # (AUTO) 4.2 X10'3 (1.8-7.7); PLATELET COUNT 276 X10'3 (140-440); RED BLOOD COUNT 4.53 X10'6 (4.70-6.10); RED CELL DISTRIBUTION WIDTH 13.7 % (11.5-14.5); WHITE BLOOD COUNT 5.8 X10'3 (4.5-11.0)
--- NOTE | 2020-12-19 15:52 | NUR ---
Nursing progress note: LEGAL HOLD: 5250 for GD Client on Involuntary status for GD Report received from nurse with use of SBAR: COLE Mackenzie Why they are here: Clients mother contacted EMS because the client was not eating, drinking, or performing basic ADL's. Client refused to be transported to the ED by EMS. [employer] was notified and brought client to hospital. The client was agitated upon arrival to the ED, and received IM PRN meds for agitation. Client is known to [facility] and has had prior admissions. Diagnosis/presenting symptoms: Schizophrenia, mood disorder, Meth use. Assessment: What has happened this shift: Iam was awake at shift change this morning C/O his roommate be a monster. Iam was overheard talking to person that was not present. AM medication given patient refused Loxipne, stating he wants to start Clozaril, "the other make my tongue stick out". Shortly after morning med pass patient was still ramped up prn Ativan was given, this seem to help. Patients roommate discharge right before ten and that seem to help patient so that he can spend time in his room. Iam is still very paranoid about the mental telepathy he is undergoing. Iam asked for Nicotine Lozgens all day long. Iam asked this teletypewriter operator to set up a discharge to go to the [facility], this teletypewriter operator reminded Iam that he has been served a 5 day notice with the intent to T-con. Patient is familiar the the LPS process, he no longer asked to be discharge to [facility]. A/VH: denies Sleep: Pt. naps intermittently throughout the day. ADL's: Independent with prompting Group attendance: N/A Were meds taken: Yes Any med S/E: Per patient "my tongue is going to stick out" Mental Status Exam: Appearance: Disheveled, wearing casual attire. Eye contact: Good Behavior: Cooperative Speech: Minimal but otherwise WNL. Mood: sad Affect: Congruent with mood Thought process: Thought blocking. Thought Content: Poverty of thought. Cognition: A/O X3 Insight: Poor Judgment: Poor Interventions: PRN's used: Nicotine lozenge all day long, Ativan Therapeutic interventions: Maintained a safe and supportive environment, ensured contract for safety, provided clear and simple instructions, provided direction and encouragement as needed, encouraged participation on the unit, medication administration, and maintained Q 15min safety checks. Restraints/seclusion/emergency medication: Justification: Patient continues to be GD, patient is unable to make a safe discharge plan with out third republican assistance, patients mother is no longer going to assist patient is housing or food. Patient is too disorganized to navigate community resources if discharged today.
[2020-12-19 19:00] VITALS: BP 103/70
--- NOTE | 2020-12-20 00:10 | NUR ---
Nursing progress note: LEGAL HOLD: 5250 for GD. Client on Involuntary status for GD Report received from COLE Lunsford with use of SBAR. Why they are here: Clients mother contacted EMS because the client was not eating, drinking, or performing basic ADL's. Client refused to be transported to the ED by EMS. [employer] was notified and brought client to hospital. The client was agitated upon arrival to the ED, and received IM PRN meds for agitation. Client is known to [facility] and has had prior admissions. Diagnosis/presenting symptoms: Schizophrenia, mood disorder, Meth use. Assessment: What has happened this shift: Patient paces the hallways following shift change. Patient looks to be responding to internal stimuli, he speaks to something in the ether. The patient is alert, he expresses his want for Clozaril, "I'm on the Clozaril registry." The patient refuses his nighttime Loxipine. He exhibits understanding that Clozaril is not available tonight, he knows Dr. Fleming is working on this situation. Patient was given Ativan for anxiety, Trazadone for insomnia. Agitation was noted early shift, it resolved with the Ativan. Patient ate meals, no socialization noted with other patients. Patient gradually retired to sleep. A/VH: Denies both, speaks to people not there. Sleep: Will tally at 0500 hours. ADL's: Independent with prompting Group attendance: No group on night shifts. Were meds taken: Yes, compliant, looks suspicious when consuming. Any med S/E: Patient states Loxipine causes his tongue to stick out. Mental Status Exam: Appearance: Disheveled, wearing casual attire. Eye contact: Direct. Behavior: Cooperative, restless. Speech: Minimal but otherwise WNL. Mood: Anxious, labile at times. Affect: Congruent with mood. Thought process: Thought blocking. Thought Content: Poverty of thought. Cognition: A/O X3. Insight: Poor. Judgment: Poor. Interventions: PRN's used: Trazadone, Nicotine lozenge, Ativan. Therapeutic interventions: Maintained a safe and supportive environment, ensured contract for safety, provided clear and simple instructions, provided direction and encouragement as needed, encouraged participation on the unit, medication administration, and maintained Q 15min safety checks. Restraints/seclusion/emergency medication: Justification: Patient continues to be GD, patient is unable to make a safe discharge plan with out third libertarian assistance, patients mother is no longer going to assist patient is housing or food. Patient is too disorganized to navigate community resources if discharged today. (Unchanged from day shift.)
[2020-12-20] MEDS: benztropine 1mg tablet PO SCH ×2 (06:59→20:15)
[2020-12-20] MEDS: LORazepam 1 MG tablet PO PRN ×2 (06:59→13:29)
[2020-12-20] MEDS: LOXAPINE SUCCINATE 25 MG CAPSULE PO SCH (06:59)
[2020-12-20] MEDS: clonazePAM 0.5mg tablet PO SCH (07:02)
[2020-12-20] MEDS: NICOTINE POLACRILEX 2 MG LOZENGE BC PRN ×3 (07:06→18:02)
[2020-12-20] MEDS: nicotine 21mg patch - 24 hr TD SCH (07:38)
[2020-12-20 08:00] VITALS: BP 118/77
--- NOTE | 2020-12-20 15:54 | NUR ---
Nursing progress note LEGAL HOLD: 5250 Client on Involuntary status for GD Report received from nurse, Jeannie De Guzman RN with use of SBAR Why they are here: Clients mother contacted EMS because the client was not eating, drinking, or performing basic ADL's. Client refused to be transported to the ED by EMS. [employer] was notified and brought client to hospital. The client was agitated upon arrival to the ED, and received IM PRN meds for agitation. Client is known to [facility] and has had prior admissions. Diagnosis/presenting symptoms: Schizophrenia, mood disorder, Meth use. Assessment: What has happened this shift: Iam has had a good day. He is medication compliant. In the morning he was pacing the halls talking to the galarza. Re-directed pt back to his room and gave him his AM mediations. From there pt has been calm and cooperative. PRN Ativan given in the afternoon with good response. Pt remained calm throughout the day. SI/HI: Denies A/VH: Denies Sleep: Napped after AM medications then up the rest of the shift. ADL's: Independent requires prompting Group attendance: N/A Were Meds taken: Yes Any med S/E: None noted or reported; he does not want Loxipine but took it Mental Status Exam: Appearance: Disheveled; wearing personal clothing Eye contact: Fair Behavior: Cooperative, isolates Speech: Minimal but otherwise WNL. Mood: Somewhat depressed Affect: Congruent with mood Thought process: Thought blocking. Thought Content: Poverty of thought Cognition: A/O X3 Insight: Poor Judgment: Poor Interventions: PRN's used: Nicotine Milana., Ativan Therapeutic interventions: Provided morning 1:1 assessment, medication administration/education/monitoring, prompted and encouraged shower and change of clothes, Q 15min safety checks. Restraints/seclusion/emergency medication: Justification: Patient continues to be GD, patient is unable to make a safe discharge plan with out third constitution party assistance, patients mother is no longer going to assist patient is housing or food. Patient is too disorganized to navigate community resources if discharged today.
[2020-12-20] MEDS ORDERED: clozapine 25mg tablet PO PRN (17:25)
[2020-12-20 20:49] VITALS: BP 104/72
[2020-12-20] MEDS ORDERED: clozapine 25mg tablet PO SCH (21:00)
[2020-12-21] MEDS: NICOTINE POLACRILEX 2 MG LOZENGE BC PRN ×7 (00:58→18:52)
--- NOTE | 2020-12-21 01:23 | NUR ---
Nursing progress note LEGAL HOLD: 5250 Client on Involuntary status for GD Report received from nurse, COLE Rivera with use of SBAR Why they are here: Clients mother contacted EMS because the client was not eating, drinking, or performing basic ADL's. Client refused to be transported to the ED by EMS. [facility] was notified and brought client to hospital. The client was agitated upon arrival to the ED, and received IM PRN meds for agitation. Client is known to [facility] and has had prior admissions. Diagnosis/presenting symptoms: Schizophrenia, mood disorder, Meth use. Assessment: What has happened this shift: Iam was asleep at change of shift. He is medication compliant. He started his Clozaril this shift and was compliant then went back to sleep. He awoke around one and asked for a Nicotine Lozenge then returned to bed. SI/HI: Denies A/VH: Denies Sleep: See sleep assessment. ADL's: Independent requires prompting Group attendance: N/A Were Meds taken: Yes Any med S/E: None noted or reported; he does not want Loxipine but took it Mental Status Exam: Appearance: Disheveled; wearing personal clothing Eye contact: Fair Behavior: Cooperative, isolates Speech: Minimal but otherwise WNL. Mood: Somewhat depressed Affect: Congruent with mood Thought process: Thought blocking. Thought Content: Poverty of thought Cognition: A/O X3 Insight: Poor Judgment: Poor Interventions: PRN's used: Nicotine Milana. Therapeutic interventions: Provided morning 1:1 assessment, medication administration/education/monitoring, prompted and encouraged shower and change of clothes, Q 15min safety checks. Restraints/seclusion/emergency medication: Justification: Patient continues to be GD, patient is unable to make a safe discharge plan with out third constitution party assistance, patients mother is no longer going to assist patient is housing or food. Patient is too disorganized to navigate community resources if discharged today.
[2020-12-21] MEDS: clozapine 25mg tablet PO PRN ×2 (06:57→13:48)
[2020-12-21 07:20] VITALS: BP 103/66
[2020-12-21] MEDS: nicotine 21mg patch - 24 hr TD SCH (08:44)
[2020-12-21] MEDS: benztropine 1mg tablet PO SCH (08:44)
--- NOTE | 2020-12-21 16:59 | NUR ---
Nursing progress note LEGAL HOLD: 5250 Client on Involuntary status for GD Report received from nurse, Jeannie De Guzman RN with use of SBAR Why they are here: Clients mother contacted EMS because the client was not eating, drinking, or performing basic ADL's. Client refused to be transported to the ED by EMS. [facility] was notified and brought client to hospital. The client was agitated upon arrival to the ED, and received IM PRN meds for agitation. Client is known to [facility] and has had prior admissions. Diagnosis/presenting symptoms: Schizophrenia, mood disorder, Meth use. Assessment: What has happened this shift: Iam continues to be delusional going up and down the halls talking to himself at times yelling and swearing aloud while standing face to face with the door or a window or a wall. Pt is polite and easily redirected following directions. He was given Clozaril PRN 25mg. SI/HI: Denies A/VH: Denies Sleep: slept in the am ADL's: Independent requires prompting Group attendance: N/A Were Meds taken: Yes Any med S/E: None noted or reported; he does not want Loxipine but took it Mental Status Exam: Appearance: Disheveled; wearing personal clothing Eye contact: Fair Behavior: Cooperative, isolates Speech: Pressured at times; minimal Mood: Somewhat depressed Affect: Congruent with mood Thought process: Thought blocking. Thought Content: Poverty of thought Cognition: A/O X3 Insight: Poor Judgment: Poor Interventions: PRN's used: Nicotine Milana., Clozril Therapeutic interventions: Provided morning 1:1 assessment, medication administration/education/monitoring, prompted and encouraged shower and change of clothes, Q 15min safety checks. Restraints/seclusion/emergency medication: Justification: Patient continues to be GD, patient is unable to make a safe discharge plan with out third green party assistance, patients mother is no longer going to assist patient is housing or food. Patient is too disorganized to navigate community resources if discharged today.
[2020-12-21] MEDS ORDERED: LORazepam 1 MG tablet PO ONE (18:30)
[2020-12-21 19:14] VITALS: BP 116/83
[2020-12-21] MEDS ORDERED: clozapine 25mg tablet PO SCH (21:00)
--- NOTE | 2020-12-22 00:54 | NUR ---
Nursing progress note LEGAL HOLD: 5250 Client on Involuntary status for GD Report received from nurseIsatu RN with use of SBAR Why they are here: Clients mother contacted EMS because the client was not eating, drinking, or performing basic ADL's. Client refused to be transported to the ED by EMS. [facility] was notified and brought client to hospital. The client was agitated upon arrival to the ED, and received IM PRN meds for agitation. Client is known to [facility] and has had prior admissions. Diagnosis/presenting symptoms: Schizophrenia, mood disorder, Meth use. Assessment: What has happened this shift: Patient was walking the halls responding to his voices in a loud voice saying some inappropriate things. Prn Ativan was ordered by the provider that was helpful. Pt was able to calm down and ate snack in the group room before going to bed. SI/HI: Denies A/VH: Denies Sleep: See sleep assessment ADL's: Independent requires prompting Group attendance: N/A Were Meds taken: Yes Any med S/E: None noted or reported; he does not want Loxipine but took it Mental Status Exam: Appearance: Disheveled; wearing personal clothing Eye contact: Fair Behavior: Cooperative, isolates Speech: Pressured at times; minimal Mood: Somewhat depressed Affect: Congruent with mood Thought process: Thought blocking. Thought Content: Poverty of thought Cognition: A/O X3 Insight: Poor Judgment: Poor Interventions: PRN's used: Nicotine Milana., Clozril Therapeutic interventions: Provided morning 1:1 assessment, medication administration/education/monitoring, prompted and encouraged shower and change of clothes, Q 15min safety checks. Restraints/seclusion/emergency medication: Justification: Patient continues to be GD, patient is unable to make a safe discharge plan with out third libertarian assistance, patients mother is no longer going to assist patient is housing or food. Patient is too disorganized to navigate community resources if discharged today.
[2020-12-22] MEDS: NICOTINE POLACRILEX 2 MG LOZENGE BC PRN ×5 (07:01→18:58)
[2020-12-22 08:00] VITALS: BP 101/55
[2020-12-22] MEDS: nicotine 21mg patch - 24 hr TD SCH (08:34)
[2020-12-22] MEDS: clozapine 25mg tablet PO PRN (10:28)
--- NOTE | 2020-12-22 16:26 | NUR ---
Nursing Progress Note: ARIELA Legal Hold: 5250 Expires 12/31 Client on Involuntary status for GD Report received from BHARGAV Mendiola with use of SBAR. Why they are here: Clients mother contacted EMS because the client was not eating, drinking, or performing basic ADL's. Client refused to be transported to the ED by EMS. [employer] was notified and brought client to hospital. The client was agitated upon arrival to the ED, and received IM PRN meds for agitation. Client is known to [facility] and has had prior admissions. Diagnosis/presenting symptoms: Schizophrenia, mood disorder, Meth use. Assessment: What has happened this shift: Received patient sleeping at shift change. Pt woke prior to breakfast and requested a nicotine lozenge. Pt ate breakfast then returned to bed. Pt was complaint with medication and care. Pt continues to have intermittent episodes of outbursts, yelling and swearing to the wall or just to the air. Pt required redirection in the morning yelling after being told there was no coffee. Pt stated I just have to yell then I will be okay. If I dont the voices will bother me all day. I am okay I just need to get it out. Pt continued to yell PRN Clozaril 25mg was administered with effect. Pt began to get agitated when asked about MH symptoms. Pt stated I am [employer], this means I date T.V women. They are very costly, they like to do queer things. Pt isolated to his room a majority of the day, sleeping. Pt is up for meal and snack times. Occasional he would get up and pace mccarthy talking to and answering self. Pt requests Nicotine lozenges throughout the day. SI/HI: Denies both. A/VH: Endorsed AH in the morning see note above. Sleep: 9.25 hours per sleep assessment. Intermittent naps ADL's: Independent requires prompting Group attendance: No scheduled group. Were Meds taken: Yes, without issue. Any med S/E: None reported or observed. Mental Status Exam: Appearance: Disheveled, hair uncombed. Dressed in green scrub bottoms and orange shirt. Eye contact: Fair Behavior: Cooperative, intermittent outbursts, isolated to his room most of the day, otherwise paced mccarthy talking to self. Speech: Pressured at times; minimal Mood: Dismissive, slightly delusional Affect: Congruent with mood Thought process: Tangential at times. Thought Content: Situational. Cognition: A/O X3 Insight: Poor Judgment: Poor Interventions: PRN's used: Nicotine lozenge, Clozaril. Therapeutic interventions: Therapeutic assessment, medication administration/education/monitoring, redirection, distraction, encouraged participation in ADLs; Q15 min safety checks. Restraints/seclusion/emergency medication: N/A Justification: Patient is gravely disabled and unable to formulate a plan for food, assisted and clothing. Pt was served a five day notice to [facility]. Pt continues to require medication adjustment in a safe and therapeutic milieu.
[2020-12-22 19:46] VITALS: BP 98/55
[2020-12-22] MEDS ORDERED: clozapine 25mg tablet PO SCH (21:00)
--- NOTE | 2020-12-23 00:56 | NUR ---
Nursing Progress Note: ARIELA Legal Hold: 5250 Expires 12/31 Client on Involuntary status for GD Report received from BHARGAV Lunsford with use of SBAR. Why they are here: Clients mother contacted EMS because the client was not eating, drinking, or performing basic ADL's. Client refused to be transported to the ED by EMS. [employer] was notified and brought client to hospital. The client was agitated upon arrival to the ED, and received IM PRN meds for agitation. Client is known to [facility] and has had prior admissions. Diagnosis/presenting symptoms: Schizophrenia, mood disorder, Meth use. Assessment: What has happened this shift: Received patient pacing the mccarthy talking to him self. Pt is polite with peers and staff and readily apologizes for his outburst response to the voices. Pt ate snack in the group room and was med compliant. Pt went to bed after snack and meds. SI/HI: Denies both. A/VH: Endorsed AH in the morning see note above. Sleep: See sleep assessment. ADL's: Independent requires prompting Group attendance: No scheduled group. Were Meds taken: Yes, without issue. Any med S/E: None reported or observed. Mental Status Exam: Appearance: Disheveled, hair uncombed. Dressed in green scrub bottoms and orange shirt. Eye contact: Fair Behavior: Cooperative, intermittent outbursts, isolated to his room most of the day, otherwise paced mccarthy talking to self. Speech: Pressured at times; minimal Mood: Dismissive, slightly delusional Affect: Congruent with mood Thought process: Tangential at times. Thought Content: Situational. Cognition: A/O X3 Insight: Poor Judgment: Poor Interventions: PRN's used: Nicotine lozenge Therapeutic interventions: Therapeutic assessment, medication administration/education/monitoring, redirection, distraction, encouraged participation in ADLs; Q15 min safety checks. Restraints/seclusion/emergency medication: N/A Justification: Patient is gravely disabled and unable to formulate a plan for food, fci and clothing. Pt was served a five day notice to [facility]. Pt continues to require medication adjustment in a safe and therapeutic milieu.
[2020-12-23] MEDS: nicotine 21mg patch - 24 hr TD SCH (07:44)
[2020-12-23 08:01] VITALS: BP 121/63
[2020-12-23] MEDS: clozapine 25mg tablet PO PRN (08:40)
--- NOTE | 2020-12-23 16:52 | NUR ---
Nursing Progress Note: Legal Hold: 5250 Expires 12/31 Client on Involuntary status for GD Report received from BHARGAV Mackenzie with use of SBAR. Why they are here: Clients mother contacted EMS because the client was not eating, drinking, or performing basic ADL's. Client refused to be transported to the ED by EMS. [employer] was notified and brought client to hospital. The client was agitated upon arrival to the ED, and received IM PRN meds for agitation. Client is known to [facility] and has had prior admissions. Diagnosis/presenting symptoms: Schizophrenia, mood disorder, Meth use. Assessment: What has happened this shift: Patient resting quietly in bed at start of shift. Eats meals in community room with peers. Pt is complaint with medication and care. Paces mccarthy talking to and answering self. Appears agitated and very verbal toward internal stimuli. PRN Clozaril given which appears helpful. Patient is guarded and does not appear to understand why he is here. He is able to answer closed ended questions but is tangential in his thought process. SI/HI: Denies A/VH: Appears to be responding to internal stimuli Sleep: 8 hours per NOC ADL's: Independent requires prompting Group attendance: No Were Meds taken: Yes Any med S/E: None reported or observed. Mental Status Exam: Appearance: Disheveled, hair uncombed. Dressed in green scrub bottoms and t-shirt Eye contact: Fair Behavior: Cooperative, intermittent outbursts, isolated to his room most of the day, otherwise paced mccarthy talking to self. Speech: Pressured at times; minimal Mood: Anxious Affect: Congruent with mood Thought process: Tangential Thought Content: Doesnt know why he has to be here. Cognition: A/O X3 to person, place and time Insight: Poor Judgment: Poor Interventions: PRN's used: Clozaril Therapeutic interventions: Therapeutic assessment, medication administration/education/monitoring, redirection, distraction, encouraged participation in ADLs; Q15 min safety checks. Restraints/seclusion/emergency medication: N/A Justification: Patient is gravely disabled and unable to formulate a plan for food, snf and clothing. Pt was served a five day notice to [facility]. Pt continues to require medication adjustment in a safe and therapeutic environment.
[2020-12-23 20:44] VITALS: BP 108/64
[2020-12-23] MEDS: clozapine 100mg tablet PO SCH (21:00)
--- NOTE | 2020-12-24 00:40 | NUR ---
Nursing Progress Note: Legal Hold: 5250 Expires 12/31 Client on Involuntary status for GD Report received from BHARGAV Vitale with use of SBAR. Why they are here: Clients mother contacted EMS because the client was not eating, drinking, or performing basic ADL's. Client refused to be transported to the ED by EMS. [employer] was notified and brought client to hospital. The client was agitated upon arrival to the ED, and received IM PRN meds for agitation. Client is known to [facility] and has had prior admissions. Diagnosis/presenting symptoms: Schizophrenia, mood disorder, Meth use. Assessment: What has happened this shift: Patient napping in bed at start of shift. Pt had less episodes of loud talking to his voices this shift. He was awoken for meds then ate snack in group room and returned to bed. SI/HI: Denies A/VH: Appears to be responding to internal stimuli Sleep: See sleep hrs ADL's: Independent requires prompting Group attendance: No Were Meds taken: Yes Any med S/E: None reported or observed. Mental Status Exam: Appearance: Disheveled, hair uncombed. Dressed in green scrub bottoms and t-shirt Eye contact: Fair Behavior: Cooperative, intermittent outbursts, isolated to his room most of the day, otherwise paced mccarthy talking to self. Speech: Pressured at times; minimal Mood: Anxious Affect: Congruent with mood Thought process: Tangential Thought Content: Doesnt know why he has to be here. Cognition: A/O X3 to person, place and time Insight: Poor Judgment: Poor Interventions: PRN's used: none Therapeutic interventions: Therapeutic assessment, medication administration/education/monitoring, redirection, distraction, encouraged participation in ADLs; Q15 min safety checks. Restraints/seclusion/emergency medication: N/A Justification: Patient is gravely disabled and unable to formulate a plan for food, group home and clothing. Pt was served a five day notice to [facility]. Pt continues to require medication adjustment in a safe and therapeutic environment.
[2020-12-24 07:00] VITALS: BP 113/69
[2020-12-24] MEDS: nicotine 21mg patch - 24 hr TD SCH (07:17)
[2020-12-24] MEDS: clozapine 25mg tablet PO PRN (08:09)
[2020-12-24] MEDS: NICOTINE POLACRILEX 2 MG LOZENGE BC PRN ×4 (09:41→20:12)
--- NOTE | 2020-12-24 09:51 | NUR ---
Reassessment: Pt continues w/ 100% meal intake on regular diet since admission. Pt compliant w/ medications. LBM 12/22. No nutritional intervention at this time, will continue to monitor. Recs: 1. Continue Regular diet as tolerated 2. Bowel care per rx 3. Weekly wts Addendum: 12/24/20 at [address] Amended: Links added.
[2020-12-24] MEDS ORDERED: LORazepam 1 MG tablet PO ONE (12:50)
--- NOTE | 2020-12-24 17:42 | NUR ---
Nursing Progress Note: Legal Hold: 5250 Expires 12/31 Client on Involuntary status for GD Report received from BHARGAV Mackenzie with use of SBAR. Why they are here: Clients mother contacted EMS because the client was not eating, drinking, or performing basic ADL's. Client refused to be transported to the ED by EMS. [facility] was notified and brought client to hospital. The client was agitated upon arrival to the ED, and received IM PRN meds for agitation. Client is known to [facility] and has had prior admissions. Diagnosis/presenting symptoms: Schizophrenia, mood disorder, Meth use. Assessment: What has happened this shift: Patient pacing unit and sitting looking out window at start of shift talking to himself. Speech is pressured and fluctuates from whispers to yelling. Tangential with loose associations. States, Preventing to stop the preventing of offspring! May I have a refill on my coffee? Then quietly whispers, Iam Conklin 1970. I will take them through you. Remember, and continues to mumble as he paces the unit. Patient becomes louder and more agitated. PRN Clozaril given which appears helpful after a while. Continues to pace halls and talk to himself but movements are slightly slowed and speech is quieter. Noted looking into reflective surfaces and yelling at his reflection. Sitting on his bed yelling to himself. When interrupted patient is cooperative, polite and apologetic. Encouraged patient to attend group but patient declined. Provider assessed patient and gave 1 time order for Ativan which appears effective for anxiety/ agitation. SI/HI: Denies A/VH: Appears to be responding to internal stimuli Sleep: 8.5 hours per NOC ADL's: Independent requires prompting Group attendance: No Were Meds taken: Yes Any med S/E: None reported or observed. Mental Status Exam: Appearance: Disheveled, hair uncombed. Dressed in green scrub bottoms and t-shirt Eye contact: Fair Behavior: Cooperative/ pleasant toward staff/ peers, intermittent outbursts toward internal stimuli, isolated to his room most of the day, otherwise paces mccarthy talking to self. Speech: Pressured at times. Hyper verbal in response to internal stimuli. Short 1 word responses when engaged in conversation. Makes needs known. Mood: Good Appears anxious AEB restlessness/ hyper verbal Affect: Anxious. Frequent eye widening Thought process: Tangential, Disorganized Thought Content: Very engaged with internal stimuli. Talks frequently about conservatorship Cognition: A/O X3 to person, place and time Insight: Poor Judgment: Poor Interventions: PRN's used: Clozaril Therapeutic interventions: Therapeutic assessment, medication administration/education/monitoring, redirection, distraction, encouraged participation in ADLs; Q15 min safety checks. Restraints/seclusion/emergency medication: N/A Justification: Patient is gravely disabled and unable to formulate a plan for food, group home and clothing. Pt was served a five day notice to [facility]. Pt continues to require medication adjustment in a safe and therapeutic environment.
[2020-12-24] MEDS: clozapine 100mg tablet PO SCH (20:12)
[2020-12-24] MEDS: LORazepam 1 MG tablet PO PRN (20:12)
[2020-12-24 20:17] VITALS: BP 116/72
[2020-12-24 20:18] VITALS: BP 116/72
--- NOTE | 2020-12-25 00:06 | NUR ---
Nursing Progress Note: Legal Hold: 5250 Expires 12/31 Client on Involuntary status for GD Report received from BHARGAV Vitale with use of SBAR. Why they are here: Clients mother contacted EMS because the client was not eating, drinking, or performing basic ADL's. Client refused to be transported to the ED by EMS. [employer] was notified and brought client to hospital. The client was agitated upon arrival to the ED, and received IM PRN meds for agitation. Client is known to [facility] and has had prior admissions. Diagnosis/presenting symptoms: Schizophrenia, mood disorder, Meth use. Assessment: What has happened this shift: Patient pacing unit and walking the halls talking to him self. Pt ate snack in the group room sitting with some peers and having a conversation with them. He waas med compliant and went to bed SI/HI: Denies A/VH: Appears to be responding to internal stimuli Sleep: See sleep assessment ADL's: Independent requires prompting Group attendance: No Were Meds taken: Yes Any med S/E: None reported or observed. Mental Status Exam: Appearance: Disheveled, hair uncombed. Dressed in green scrub bottoms and t-shirt Eye contact: Fair Behavior: Cooperative/ pleasant toward staff/ peers, intermittent outbursts toward internal stimuli, isolated to his room most of the day, otherwise paces mccarthy talking to self. Speech: Pressured at times. Hyper verbal in response to internal stimuli. Short 1 word responses when engaged in conversation. Makes needs known. Mood: Good Appears anxious AEB restlessness/ hyper verbal Affect: Anxious. Frequent eye widening Thought process: Tangential, Disorganized Thought Content: Very engaged with internal stimuli. Talks frequently about conservatorship Cognition: A/O X3 to person, place and time Insight: Poor Judgment: Poor Interventions: PRN's used: Ativan Therapeutic interventions: Therapeutic assessment, medication administration/education/monitoring, redirection, distraction, encouraged participation in ADLs; Q15 min safety checks. Restraints/seclusion/emergency medication: N/A Justification: Patient is gravely disabled and unable to formulate a plan for food, fpc and clothing. Pt was served a five day notice to [facility]. Pt continues to require medication adjustment in a safe and therapeutic environment.
[2020-12-25 07:16] VITALS: BP 89/53
[2020-12-25] MEDS: NICOTINE POLACRILEX 2 MG LOZENGE BC PRN ×5 (07:23→19:25)
[2020-12-25] MEDS: clozapine 25mg tablet PO SCH (07:23)
[2020-12-25] MEDS: nicotine 21mg patch - 24 hr TD SCH (07:28)
[2020-12-25] MEDS: acetaminophen 325mg tablet PO PRN (14:12)
--- NOTE | 2020-12-25 15:13 | NUR ---
Nursing Progress Note: Legal Hold: 5250 Expires 12/31 Client on Involuntary status for GD Report received from Avril GALVAN with use of SBAR. Why they are here: Clients mother contacted EMS because the client was not eating, drinking, or performing basic ADL's. Client refused to be transported to the ED by EMS. [employer] was notified and brought client to hospital. The client was agitated upon arrival to the ED, and received IM PRN meds for agitation. Client is known to [facility] and has had prior admissions. Diagnosis/presenting symptoms: Schizophrenia, mood disorder, Meth use. Assessment: What has happened this shift: Pt was up before breakfast, he requested a nicotine lozenge. Pt was cooperative with medications. Pt was given PRN nicotine lozenges at 0723, 1125, and 1412. Pt denied depression, anxiety, SI/HI/AH/VH. Pt reports, "I'm okay." Pt appears somewhat anxious and restless at times though was pleasant and cooperative with care. Pt c/o a crick in his neck so was given PRN Tylenol 650 mg at 1412 with good effect. Pt stated, "that's the first time I had Tylenol in over 20 years." Per the EMAR, he was given it here last week. Pt paces and watches TV in the rec room. Pt appears internally preoccupied but was not observed responding to internal stimuli. SI/HI: Pt denies. A/VH: Pt denies. Sleep: Pt slept 8.75 hour last night per noc shift report. ADL's: Independent, needs encouragement with personal hygiene. Group attendance: No Were Meds taken: Yes Any med S/E: None noted or reported. Mental Status Exam: Appearance: Disheveled older appearing gentleman with messy, greasy hair and facial stubble dressed in an orange T-shirt and green scrub pants. Eye contact: Fair Behavior: Cooperative, paces, watches TV. Speech: Clear, audible. Mood: "I'm okay." Affect: Restless Thought process: Internally preoccupied, distractible. Thought Content: Focused on nicotine lozenges. Cognition: A/O X3, forgetful Insight: Poor Judgment: Poor Interventions: PRN's used: Nicotine lozenges, Tylenol. Therapeutic interventions: 1:1 assessment, therapeutic communication, active listening, medication administration/education/monitoring, encouragement of personal hygiene, encouragement to participate in unit activities, behavior monitoring and intervention as needed; distraction, redirection, reality orientation, limit setting, Q15 minute safety checks. Restraints/seclusion/emergency medication: N/A Justification: Patient is gravely disabled and unable to formulate a plan for food, long term and clothing. Pt was served a five day notice to [facility]. Pt continues to require medication adjustment in a safe and therapeutic milieu.
--- NOTE | 2020-12-25 16:55 | NUR ---
Pt observed pacing, talking and laughing to himself in the hallway.
[2020-12-25] MEDS: clozapine 100mg tablet PO SCH (18:59)
[2020-12-25 19:00] VITALS: BP 124/81
[2020-12-25] MEDS: LORazepam 1 MG tablet PO PRN (19:00)
[2020-12-25] MEDS: clozapine 25mg tablet PO PRN (19:00)
--- NOTE | 2020-12-26 01:31 | NUR ---
Nursing Progress Note: Legal hold: 5250 for gravely disabled Report received from Iam GALVAN with use of SBAR Why they are here: Clients mother contacted EMS because the client was not eating, drinking, or performing basic ADL's. Client refused to be transported to the ED by EMS. [employer] was notified and brought client to hospital. The client was agitated upon arrival to the ED, and received IM PRN meds for agitation. Client is known to [facility] and has had prior admissions. Diagnosis/presenting symptoms: Schizophrenia, mood disorder, Meth use Assessment What has happened this shift: The patient was up and pacing in the hallway. His hair was uncombed and sticking up all over his head. He was unshaven but did appear to have clean and appropriate clothing. He had a wide eyed stare. He was cooperative with the evening assessment but he was agitated and responding to internal stimuli. He kept moving his hands and legs and repeatedly made swiping movements in front of himself and stated that "I'm warding bad spirits away from me...They say that they love me,they love your mother" He described the voices as constant. He also stated that he was having constant visual hallucinations of apparitions and some of them appeared to be miniature people. He then began talking more rapidly and his train of thought was bizarre. He began talking about homosexuals and that a woman was trying to trick his penis. He stated that his energy level and been drained but then began to sing that "My will to live is ever confident" He was restless and paced in the hallway while responding to internal stimuli. He was given his HS medications early and was also given prn ativan and clozaril. His insight and judgement are very poor. S/I, H/I: denied A/VH: see above note Sleep: Reports sleeping well ADL's: see above note Group attendance: No groups this shift Were meds taken: Shift Any med S/E The patient was very restless Justification of Continued Inpatient Treatment: Medication adjustments continue. The patient is very psychotic and requiring prn medication. He is unable to formulate a realistic plan for food, assisted or clothing.
[2020-12-26] MEDS: NICOTINE POLACRILEX 2 MG LOZENGE BC PRN ×4 (07:04→17:03)
[2020-12-26] MEDS: clozapine 25mg tablet PO SCH ×2 (07:48→20:29)
[2020-12-26] MEDS: nicotine 21mg patch - 24 hr TD SCH (07:55)
[2020-12-26 08:31] VITALS: BP 113/92
--- NOTE | 2020-12-26 13:33 | NUR ---
Nursing Progress Note: Legal Hold: 5250 Expires 12/31 Client on Involuntary status for GD Report received from Jeannie Chang RN with use of SBAR. Why they are here: Clients mother contacted EMS because the client was not eating, drinking, or performing basic ADL's. Client refused to be transported to the ED by EMS. [facility] was notified and brought client to hospital. The client was agitated upon arrival to the ED, and received IM PRN meds for agitation. Client is known to [facility] and has had prior admissions. Diagnosis/presenting symptoms: Schizophrenia, mood disorder, Meth use. Assessment: What has happened this shift: Pt was up before breakfast requesting a nicotine lozenge. Pt was cooperative with morning medications. Pt observed responding to internal stimuli while sitting in a chair by the window in the rec room. Pt was talking to himself and repeating the same phrase over and over, "my voice is my passport, verify me, my voice is my passport, verify me." When asked if pt is hearing voices, pt denies it. Pt also denied depression, SI/HI/VH. Pt paces the unit and watches TV in the rec room. SI/HI: Pt denies. A/VH: Pt denies. Sleep: Pt slept 7.5 hour last night per noc shift report. ADL's: Independent, needs encouragement with personal hygiene. Group attendance: No Were Meds taken: Yes Any med S/E: None noted or reported. Mental Status Exam: Appearance: Thin, disheveled older appearing gentleman with messy hair and facial stubble dressed in an orange T-shirt and green scrub pants. Eye contact: Fair Behavior: Cooperative, paces, talks and laughs to himself, watches TV. Speech: Clear, audible. Mood: "I'm okay." Affect: Restless, guarded. Thought process: Delusional, somewhat disorganized, internally preoccupied, responding to internal stimuli. Thought Content: Focused on nicotine lozenges. Cognition: A/O X3, forgetful Insight: Poor Judgment: Poor Interventions: PRN's used: Nicotine lozenges Therapeutic interventions: 1:1 assessment, therapeutic communication, active listening, medication administration/education/monitoring, encouragement of personal hygiene, encouragement to participate in unit activities, behavior monitoring and intervention as needed; distraction, redirection, reality orientation, limit setting, Q15 minute safety checks. Restraints/seclusion/emergency medication: N/A Justification: Patient is gravely disabled and unable to formulate a plan for food, detention and clothing. Pt is on a TCON. Pt continues to require medication adjustment and monitoring in a safe and therapeutic environment until placement found. Addendum: 12/26/20 at 1343 by Lorraine Gunn RN ([place]) WBC today was 6.8. Addendum: 12/26/20 at 1511 by Lorraine Gunn RN ([place]) Pt's Clozaril was increased to 75 mg daily and 125 mg HS.
[2020-12-26 13:35] LABS: BASOPHILS % (AUTO) 0.6 % (0-1); EOSINOPHILS % (AUTO) 0.4 % (0-6); HEMATOCRIT 44.2 % (42.0-52.0); HEMOGLOBIN 15.1 g/dl (14.0-17.9); LYMPHOCYTES # (AUTO) 1.4 X10'3 (1.1-4.8); LYMPHOCYTES % (AUTO) 19.8 % (21-51); MEAN CORPUSCULAR HEMOGLOBIN 31.4 PG (27.0-31.0); MEAN CORPUSCULAR HGB CONC 34.1 g/dL (33.0-36.5); MEAN CORPUSCULAR VOLUME 92.1 FL (78-98); MEAN PLATELET VOLUME 8.8 FL (7.4-10.4); MONOCYTES # (AUTO) 0.6 X10'3 (0-0.9); MONOCYTES % (AUTO) 9.1 % (2-12); NEUTROPHILS # (AUTO) 4.8 X10'3 (1.8-7.7); NEUTROPHILS % (AUTO) 70.1 % (42-75); PLATELET COUNT 293 X10'3 (140-440); RED CELL DISTRIBUTION WIDTH 13.8 % (11.5-14.5); WHITE BLOOD COUNT 6.8 X10'3 (4.5-11.0)
[2020-12-26 19:29] VITALS: BP 102/61
[2020-12-26] MEDS: clozapine 100mg tablet PO SCH (20:29)
--- NOTE | 2020-12-27 00:24 | NUR ---
Nursing Progress Note: Legal Hold: 5250 Expires 12/31 Client on Involuntary status for GD Report received from Cristiano GALVAN with use of SBAR. Why they are here: Clients mother contacted EMS because the client was not eating, drinking, or performing basic ADL's. Client refused to be transported to the ED by EMS. [employer] was notified and brought client to hospital. The client was agitated upon arrival to the ED, and received IM PRN meds for agitation. Client is known to [facility] and has had prior admissions. Diagnosis/presenting symptoms: Schizophrenia, mood disorder, Meth use. Assessment: What has happened this shift: Pt asleep at start of shift. Declined to come to Group room for snack went back to sleep. Pt awakened for medications and assessment. Pt cooperative denied depression, SI/HI/VH. Took all his medications. and imediatly went back to sleep. SI/HI: Pt denies. A/VH: Pt denies. Sleep: Sleeping at his time and has been asleep since shift change. ADL's: Independent, needs encouragement with personal hygiene. Group attendance: NA Were Meds taken: Yes Any med S/E: None noted or reported. Mental Status Exam: Appearance: Thin, disheveled older appearing gentleman with messy hair and facial stubble Eye contact: Fair Behavior: Sleeping Speech: Clear, audible. Minimal responses just wants to go back to sleep Mood: "Good." Affect: Sleepy Thought process: answers questions briefly Thought Content: just wants to sleep Cognition: A/O X3, forgetful Insight: Poor Judgment: Poor Interventions: PRN's used: none Therapeutic interventions: 1:1 assessment, therapeutic communication, active listening, medication administration/education/monitoring, encouragement of personal hygiene, encouragement to participate in unit activities, behavior monitoring and intervention as needed; distraction, redirection, reality orientation, limit setting, Q15 minute safety checks. Restraints/seclusion/emergency medication: N/A Justification: Patient is gravely disabled and unable to formulate a plan for food, long-term and clothing. Pt is on a TCON. Pt continues to require medication adjustment and monitoring in a safe and therapeutic environment until placement found.
[2020-12-27] MEDS: NICOTINE POLACRILEX 2 MG LOZENGE BC PRN ×6 (06:40→18:58)
[2020-12-27] MEDS: nicotine 21mg patch - 24 hr TD SCH (07:44)
[2020-12-27 07:46] VITALS: BP 104/83
[2020-12-27] MEDS ORDERED: clozapine 25mg tablet PO SCH (08:00)
--- NOTE | 2020-12-27 13:19 | NUR ---
Nursing Progress Note: Legal Hold: T-Con Client on Involuntary status for GD Report received from Jeannie Chang RN with use of SBAR. Why they are here: Clients mother contacted EMS because the client was not eating, drinking, or performing basic ADL's. Client refused to be transported to the ED by EMS. [employer] was notified and brought client to hospital. The client was agitated upon arrival to the ED, and received IM PRN meds for agitation. Client is known to [facility] and has had prior admissions. Diagnosis/presenting symptoms: Schizophrenia, mood disorder, Meth use. Assessment: What has happened this shift: Received Pt in his room awake and in no distress. Pt actively speaking to s loudly and pacing halls this morning. Pt obsessing about coffee and nicotine Lozenges. Is able to respond well to limits. Pt does not want to be conserved, I want my freedom. Pt spent time walking halls, lying in bed and watching TV. Pt takes meds w/o issue. Pt unable to have linear conversation at this time, as he spins quickly into delusions and word salad. SI/HI: Pt denies. A/VH: Pt denies. Sleep: Pt napped ADL's: Independent, needs encouragement Group attendance: NA Were Meds taken: Yes Any med S/E: None noted or reported. Mental Status Exam: Appearance: Disheveled Eye contact: Good Behavior: Cooperative, paces, talks and laughs to himself, watches TV Speech: Clear, audible, loud at times Mood: doing good Affect: Anxious, guarded Thought process: Delusional, somewhat disorganized, internally preoccupied, responding to internal stimuli Thought Content: Delusions and nicotine lozenges Cognition: A/O X3, forgetful Insight: Poor Judgment: Poor Interventions: PRN's used: Nicotine lozenges Therapeutic interventions: 1:1 assessment, therapeutic communication, active listening, medication administration/education/monitoring, encouragement of personal hygiene, encouragement to participate in unit activities, behavior monitoring and intervention as needed; distraction, redirection, reality orientation, limit setting, Q15 minute safety checks. Restraints/seclusion/emergency medication: N/A Justification: Patient is gravely disabled and unable to formulate a plan for food, snf and clothing. Pt is on a TCON. Pt continues to require medication adjustment and monitoring in a safe and therapeutic environment until placement found.
[2020-12-27 19:21] VITALS: BP 118/74
[2020-12-27] MEDS: clozapine 25mg tablet PO SCH (20:30)
[2020-12-27] MEDS: clozapine 100mg tablet PO SCH (20:30)
--- NOTE | 2020-12-28 02:19 | NUR ---
Nursing Progress Note: Legal Hold: T-Con Client on Involuntary status for GD Report received from Isatu GALVAN with use of SBAR. Why they are here: Clients mother contacted EMS because the client was not eating, drinking, or performing basic ADL's. Client refused to be transported to the ED by EMS. [employer] was notified and brought client to hospital. The client was agitated upon arrival to the ED, and received IM PRN meds for agitation. Client is known to [facility] and has had prior admissions. Diagnosis/presenting symptoms: Schizophrenia, mood disorder, Meth use. Assessment: What happened this shift: Pt up on unit at start of shift. Requested and given a nicotine Lozenge. Denies A/V/H. Pt engaged in very little conversation this shift, so no delusional comments. Not observed responding to internal stimuli. Pt described his mood as not bad. Woke up and had snack in group room. Pt pleasant and cooperative says Thank You frequently. SI/HI: Pt denies. A/VH: Pt denies. Sleep: Asleep at this time. ADL's: Independent, needs encouragement Group attendance: NA Were Meds taken: Yes Any med S/E: None noted or reported. Mental Status Exam: Appearance: Disheveled Eye contact: Good Behavior: Quiet and withdrawn Speech: Clear, audible Mood: Not too bad Affect: Anxious, guarded Thought process: somewhat disorganized, Thought Content: nicotine lozenges Cognition: A/O X3, forgetful Insight: Poor Judgment: Poor Interventions: PRN's used: Nicotine lozenges Therapeutic interventions: 1:1 assessment, therapeutic communication, active listening, medication administration/education/monitoring, encouragement of personal hygiene, encouragement to participate in unit activities, behavior monitoring and intervention as needed; distraction, redirection, reality orientation, limit setting, Q15 minute safety checks. Restraints/seclusion/emergency medication: N/A Justification: Patient is gravely disabled and unable to formulate a plan for food, detention and clothing. Pt is on a TCON. Pt continues to require medication adjustment and monitoring in a safe and therapeutic environment until placement found.
[2020-12-28] MEDS: NICOTINE POLACRILEX 2 MG LOZENGE BC PRN (06:54)
[2020-12-28 07:47] VITALS: BP 118/84
[2020-12-28] MEDS: nicotine 21mg patch - 24 hr TD SCH (08:32)
[2020-12-28] MEDS: clozapine 100mg tablet PO SCH ×2 (08:32→20:34)
[2020-12-28] MEDS ORDERED: magnesium citrate 296ml oral solution PO ONE (14:50)
[2020-12-28] MEDS ORDERED: docusate sod 250mg capsule PO ONE (14:50)
--- NOTE | 2020-12-28 16:25 | NUR ---
Nursing Progress Note: Legal Hold: T-Con Client on Involuntary status for GD Report received from COLE Vitale with use of SBAR. Why they are here: Clients mother contacted EMS because the client was not eating, drinking, or performing basic ADL's. Client refused to be transported to the ED by EMS. [employer] was notified and brought client to hospital. The client was agitated upon arrival to the ED, and received IM PRN meds for agitation. Client is known to [facility] and has had prior admissions. Diagnosis/presenting symptoms: Schizophrenia, mood disorder, Meth use. Assessment: What has happened this shift: Received pt up in the halls responding to AH's while pacing in front of the nurses station. Pt was requesting Nicotine Milana by 0630 AM and coffee. Pt spends the day pacing the halls, having conversations in the two way mirror, and watching TV. Pt remains with delusional disorganized thought process. Complaints of constipation; encouraged pt to talk with his doctor at today's appt. Pt reported constipation to Lonnie and both docusate Colace and Mag Citrate were ordered. Pt encouraged to follow up with nurses. SI/HI: Denies A/VH: Denies Sleep: Napped after lunch ADL's: Poor ADL's does not seem to be a priority Group attendance: NA Were Meds taken: Yes Any med S/E: None noted or reported. Mental Status Exam: Appearance: Disheveled Eye contact: Good Behavior: Cooperative, talks and laughs to himself Speech: Clear, audible, loud at times Mood: "Not good" Affect: Anxious Thought process: Delusional, disorganized, internally preoccupied Thought Content: wants to be out of here and on his own Cognition: A/O X3 Insight: Poor Judgment: Poor Interventions: PRN's used: Nicotine lozenges Therapeutic interventions: Provided 1:1 assessment with therapeutic communication and active listening, medication administration/education/monitoring, encouragement of personal hygiene, encouragement to participate in unit activities, behavior monitoring and intervention as needed; distraction, reality orientation, Q15 minute safety checks. Restraints/seclusion/emergency medication: N/A Justification: Patient is gravely disabled and unable to formulate a plan for food, correction and clothing. Pt is on a TCON. Pt continues to require medication adjustment and monitoring in a safe and therapeutic environment until placement found.
[2020-12-28 19:03] VITALS: BP 122/73
[2020-12-28] MEDS: LORazepam 1 MG tablet PO PRN (20:33)
[2020-12-28] MEDS: clozapine 25mg tablet PO SCH (20:34)
[2020-12-28] MEDS: docusate sod 100mg capsule PO SCH (20:34)
--- NOTE | 2020-12-29 02:17 | NUR ---
Nursing Progress Note: Legal Hold: T-Con Client on Involuntary status for GD Report received from Isatu GALVAN with use of SBAR. Why they are here: Clients mother contacted EMS because the client was not eating, drinking, or performing basic ADL's. Client refused to be transported to the ED by EMS. [employer] was notified and brought client to hospital. The client was agitated upon arrival to the ED, and received IM PRN meds for agitation. Client is known to [facility] and has had prior admissions. Diagnosis/presenting symptoms: Schizophrenia, mood disorder, Meth use. Assessment: What happened this shift: At start of shift Pt sitting in room responding to internal stimuli in a loud voice. Pt apologetic I think I am bothering my roommate Reassured the roommate understands he cant help it. Pt seemed comforted. Pt says he hears a lot of voices I dont know why I am so famous. The pt says the voices do not say mean things or command him to do anything. Pt pleasant and cooperative. Does not to interact with peers because he is preoccupied by internal stimuli. Pt appears to need a shower when offered a shower he declined I took one today He came to group room for snack took all medications and went to bed. SI/HI: Pt denies. A/VH: Pt denies. Sleep: Asleep at this time. ADL's: Independent, needs encouragement Group attendance: NA Were Meds taken: Yes Any med S/E: None noted or reported. Mental Status Exam: Appearance: Disheveled Eye contact: Good Behavior: Quiet and withdrawn Speech: Clear, audible Mood: Not too bad Affect: Anxious, guarded Thought process: somewhat disorganized, Thought Content: nicotine lozenges Cognition: A/O X3, forgetful Insight: Poor Judgment: Poor Interventions: PRN's used: Nicotine lozenges Therapeutic interventions: 1:1 assessment, therapeutic communication, active listening, medication administration/education/monitoring, encouragement of personal hygiene, encouragement to participate in unit activities, behavior monitoring and intervention as needed; distraction, redirection, reality orientation, limit setting, Q15 minute safety checks. Restraints/seclusion/emergency medication: N/A Justification: Patient is gravely disabled and unable to formulate a plan for food, custodial and clothing. Pt is on a TCON. Pt continues to require medication adjustment and monitoring in a safe and therapeutic environment until placement found.
[2020-12-29] MEDS: docusate sod 100mg capsule PO SCH ×2 (07:17→20:22)
[2020-12-29] MEDS: clozapine 100mg tablet PO SCH ×2 (07:17→20:22)
[2020-12-29] MEDS: nicotine 21mg patch - 24 hr TD SCH (07:17)
[2020-12-29] MEDS: NICOTINE POLACRILEX 2 MG LOZENGE BC PRN ×5 (07:18→19:04)
[2020-12-29 07:49] VITALS: BP 101/56
--- NOTE | 2020-12-29 14:30 | NUR ---
Nursing Progress Note: Legal Hold: T-Con Client on Involuntary status for GD Report received from Cristiano RN with use of SBAR. Why they are here: Clients mother contacted EMS because the client was not eating, drinking, or performing basic ADL's. Client refused to be transported to the ED by EMS. [employer] was notified and brought client to hospital. The client was agitated upon arrival to the ED, and received IM PRN Meds for agitation. Client is known to [facility] and has had prior admissions. Diagnosis/presenting symptoms: Schizophrenia, mood disorder, Meth use. Assessment: What has happened this shift: Received pt at at noon from nurse Cristiano. Pt up walking around the unit. Pt later went back to his bed resting until lunch. Pt up for meals and snacks. He reports a BM yesterday and today. He states, he lives in a motel near [facility]. Pt remains delusional stating, "everyone around there it's like [employer] [employer] people telepooling from all over the [place].' 'I hear these things." Reports the [employer] is helping him. He asked about court stating, "I shouldn't be taking up the [employer] money." He then talked about his court date then asking, "what do I say I don't want to be locked up." SI/HI: Denies A/VH: Denies Sleep: Napped after lunch ADL's: Poor ADL's Group attendance: NA Were Meds taken: Yes Any med S/E: None noted or reported. Mental Status Exam: Appearance: Disheveled; unshaved Eye contact: Good Behavior: Appears depressed Speech: Clear, audible Mood: "I don't want to be locked up." Affect: Congruent with mood Thought process: Delusional, internally preoccupied Thought Content: "I can take care of myself." Cognition: A/O X3 Insight: Poor Judgment: Poor Interventions: PRN's used: Nicotine lozenges Therapeutic interventions: Provided 1:1 assessment with therapeutic communication and active listening, medication administration/education/monitoring, encouragement of personal hygiene, encouragement to participate in unit activities, behavior monitoring and intervention as needed; reality orientation, Q15 minute safety checks. Restraints/seclusion/emergency medication: N/A Justification: Patient is gravely disabled and unable to formulate a plan for food, longterm and clothing. Pt is on a TCON. Pt continues to require medication adjustment and monitoring in a safe and therapeutic environment until placement found.
[2020-12-29 20:00] VITALS: BP 114/75
[2020-12-29] MEDS: clozapine 25mg tablet PO SCH (20:24)
--- NOTE | 2020-12-30 00:42 | NUR ---
Nursing Progress Note: Legal Hold: T-Con Client on Involuntary status for GD Report received from COLE Lunsford with use of SBAR. Why they are here: Clients mother contacted EMS because the client was not eating, drinking, or performing basic ADL's. Client refused to be transported to the ED by EMS. [employer] was notified and brought client to hospital. The client was agitated upon arrival to the ED, and received IM PRN Meds for agitation. Client is known to [facility] and has had prior admissions. Diagnosis/presenting symptoms: Schizophrenia, mood disorder, Meth use. Assessment: What has happened this shift: Pt in bed at the start of the shift and remained there throughout. He slept through snack and requested one during medications. He denies all mental health symptoms at this time, and denies any side effects to his current meds. SI/HI: Denies A/VH: Denies Sleep: sleeps well at night ADL's: Poor ADL's Group attendance: NA Were Meds taken: Yes Any med S/E: None noted or reported. Mental Status Exam: Appearance: Disheveled; unshaved Eye contact: fair Behavior: isolative Speech: normal rate and volume Mood: upset with current situation he is in Affect: flat Thought process: linear Thought Content: concerned about upcoming court hearing Cognition: A/O X3 Insight: Poor Judgment: Poor Interventions: PRN's used: Nicotine lozenges Therapeutic interventions: Provided 1:1 assessment with therapeutic communication and active listening, medication administration/education/monitoring, encouragement of personal hygiene, encouragement to participate in unit activities, behavior monitoring and intervention as needed; reality orientation, Q15 minute safety checks. Restraints/seclusion/emergency medication: N/A Justification: Patient is gravely disabled and unable to formulate a plan for food, [facility] and clothing. Pt is on a TCON. Pt continues to require medication adjustment and monitoring in a safe and therapeutic environment until placement found.
[2020-12-30 07:15] VITALS: BP 96/59
[2020-12-30] MEDS: nicotine 21mg patch - 24 hr TD SCH (07:35)
[2020-12-30] MEDS: clozapine 100mg tablet PO SCH ×2 (07:35→20:05)
[2020-12-30] MEDS: NICOTINE POLACRILEX 2 MG LOZENGE BC PRN ×4 (07:35→17:37)
[2020-12-30] MEDS: docusate sod 100mg capsule PO SCH ×2 (07:35→20:06)
--- NOTE | 2020-12-30 17:46 | NUR ---
Nursing Progress Note: Iam Conklin Legal Hold: T-Con Client on Involuntary status for GD Report received from COLE Mackenzie with use of SBAR. Why they are here: Clients mother contacted EMS because the client was not eating, drinking, or performing basic ADL's. Client refused to be transported to the ED by EMS. [employer] was notified and brought client to hospital. The client was agitated upon arrival to the ED, and received IM PRN Meds for agitation. Client is known to [facility] and has had prior admissions. Diagnosis/presenting symptoms: Schizophrenia, mood disorder, Meth use. Assessment: What has happened this shift: Patient noted sleeping in bed at change of shift. He approached this magnetic tape typewriter operator asking for a PRN Nicotine lozenge before breakfast. Was noted walking around the unit before breakfast arrived, quietly talking to himself. He joined in the community room for breakfast with peers, noted eating quietly, not conversing with anyone. Patient retreated back to his room after breakfast. 1:1 assessment completed, lungs CTA. He continues to be polite, yet self-isolative and guarded. This magnetic tape typewriter operator encouraged patient to participate on the unit today. He was noted talking to himself in a nonsensical manner, patient stating,macrophelia must be forbidden! He denies SI/HI. Patient observed rambling under his breath, appearing to respond to internal stimuli. However, denies AH or VH. He is complaint with all medications. He continues to be cooperative with care, yet minimal and unwilling to engage. He did not participate in group today or on the outside patio with peers. He spent the majority of the day sleeping in his room, walking around the unit, and participating for meals in the community room. SI/HI: Denies A/VH: Denies Sleep: Pt slept 8.25 hours last night per NOC shift, intermittent napping today ADL's: Poor ADL's Group attendance: No Were Meds taken: Yes Any med S/E: None noted or reported. Mental Status Exam: Appearance: Disheveled, unshaved, wearing green unit scrubs Eye contact: Good Behavior: Reserved, minimal, cooperative Speech: Clear, WNL Mood: Pleasant, quiet Affect: Flat Thought process: Delusional, internally preoccupied Thought Content: Nonsensical, stating ,macrophelia must be forbidden! Cognition: A/O X3 Insight: Poor Judgment: Poor Interventions: PRN's used: Nicotine lozenges Therapeutic interventions: Established rapport, provided 1:1 assessment with therapeutic communication and active listening, medication administration/education/monitoring, encouragement of personal hygiene, encouragement to participate in unit activities, behavior monitoring and intervention as needed; reality orientation, Q15 minute safety checks. Restraints/seclusion/emergency medication: N/A Justification: Patient is gravely disabled and unable to formulate a plan for food, penitentiary and clothing. Pt is on a TCON. Pt continues to require medication adjustment and monitoring in a safe and therapeutic environment until placement found. Per Dr. Fleming, Disposition: Conservatorship and [facility] ([facility]) versus back to the community.
[2020-12-30 20:00] VITALS: BP 120/81
[2020-12-30] MEDS: clozapine 25mg tablet PO SCH (20:06)
--- NOTE | 2020-12-31 02:17 | NUR ---
Nursing Progress Note: Legal Hold: T-Con Client on Involuntary status for GD Report received from COLE Lunsford with use of SBAR. Why they are here: Clients mother contacted EMS because the client was not eating, drinking, or performing basic ADL's. Client refused to be transported to the ED by EMS. [employer] was notified and brought client to hospital. The client was agitated upon arrival to the ED, and received IM PRN Meds for agitation. Client is known to [facility] and has had prior admissions. Diagnosis/presenting symptoms: Schizophrenia, mood disorder, Meth use. Assessment: What has happened this shift: The patient was pacing the halls talking to himself at shift change. He asked for nicotine lozenge right away. He's disheveled with poor hygiene. Tried to talk about his mental health, but he denies all. He spent the evening pacing or on his bed having conversations with himself. No complaints about medications. SI/HI: Denies A/VH: Denies Sleep: See sleep assessment ADL's: Independent Group attendance: N/A Were Meds taken: Yes Any med S/E: None noted or reported. Mental Status Exam: Appearance: Disheveled; unshaved, dirty clothes Eye contact: fair Behavior: Isolative, guarded, delusional Speech: normal rate and volume Mood: Upset Affect: flat Thought process: linear Thought Content: concerned about upcoming court hearing Cognition: A/O X3 Insight: Poor Judgment: Poor Interventions: PRN's used: Nicotine lozenges Therapeutic interventions: Provided 1:1 assessment with therapeutic communication and active listening, medication administration/education/monitoring, encouragement of personal hygiene, encouragement to participate in unit activities, behavior monitoring and intervention as needed; reality orientation, Q15 minute safety checks. Restraints/seclusion/emergency medication: N/A Justification: Patient is gravely disabled and unable to formulate a plan for food, alf and clothing. Pt is on a TCON. Pt continues to require medication adjustment and monitoring in a safe and therapeutic environment until placement found.
[2020-12-31] MEDS: clozapine 100mg tablet PO SCH ×2 (07:35→20:25)
[2020-12-31] MEDS: docusate sod 100mg capsule PO SCH ×2 (07:35→20:25)
[2020-12-31] MEDS: NICOTINE POLACRILEX 2 MG LOZENGE BC PRN ×4 (07:35→19:51)
[2020-12-31] MEDS: nicotine 21mg patch - 24 hr TD SCH (07:35)
[2020-12-31 08:00] VITALS: BP 102/64
--- NOTE | 2020-12-31 09:29 | NUR ---
Reassessment: Pt continues w/ 100% meal intake on regular diet since admission. Pt compliant w/ medications. LBM 12/30. No nutritional intervention at this time, will continue to monitor. Recs: 1. Continue Regular diet as tolerated 2. Bowel care per rx 3. Weekly wts Addendum: 12/31/20 at [address] Amended: Links added.
[2020-12-31] MEDS: LORazepam 1 MG tablet PO PRN (11:40)
[2020-12-31] MEDS: clozapine 25mg tablet PO PRN (11:47)
--- NOTE | 2020-12-31 17:53 | NUR ---
Nursing Progress Note: Iam Conklin Legal Hold: T-Con Client on Involuntary status for GD Report received from COLE Lin with use of SBAR. Why they are here: Clients mother contacted EMS because the client was not eating, drinking, or performing basic ADL's. Client refused to be transported to the ED by EMS. [employer] was notified and brought client to hospital. The client was agitated upon arrival to the ED, and received IM PRN Meds for agitation. Client is known to [facility] and has had prior admissions. Diagnosis/presenting symptoms: Schizophrenia, mood disorder, Meth use. Assessment: What has happened this shift: Patient noted walking around the unit before breakfast this morning. He approached this press writer asking for a PRN Nicotine lozenge. Patient was observed staring at his reflection through mirrored window, talking to himself making nonsensical statements. He appears internally preoccupied. He expressed frustration over the recreation room being closed, stating that staff are punishing us by not opening the door. He joined in the community room for breakfast. He was observed sitting in his room after breakfast, talking to himself quietly. This press writer performed 1:1 assessment. He is compliant with all medications. He endorsed that he had liquid in his bowel movement this morning, patient informed to notify this press writer if he has diarrhea at any point today. He responded to this press writer, I love diarrhea! I am a firm believer that everyone should have diarrhea. That is how people lose weight. Diarrhea is the way to live! Patient noted making delusional statements. When asked if patient is experiencing SI/HI, he responded, Not at all. Patient endorsed experiencing AH this morning, stating that he is hearing good voices that are telling him I love you or I hate you. Patient denies visual hallucinations. Patient noted walking around the unit earlier in the day. He approached this press writer asking for a PRN Nicotine lozenge. He was observed talking with the doctor having a conversation about the possibility of conservatorship. Patient noted interacting appropriately, asking appropriate questions. He continues to be polite, pleasant, and cooperative with care. He endorsed to this press writer that he wants to move back to his motel room when he leaves here. Patient noted walking around the unit talking to himself around 1130 visibly upset and anxious, stating, Im not going to carry your lunch box mother fallison! Patient endorsed to this press writer that he is tired of carrying other peoples trays on his back, their paychecks need to be picked up by them! He was observed pacing the hallways, verbalizing nonsensical delusions. Patient given PRN Ativan 1mg PO for anxiety. He retreated back to his room where he began aggressively yelling at himself. Patient was given PRN Clozapine 50mg PO for agitation with effectiveness. This press writer asked patient if he is experiencing voices and he responded, yes but I dont want to tell anybody because I want to get out of here. This press writer encouraged patient to participate on the unit and go to group today. However, he did not attend group. Patient was noted sitting in the recreation room quietly looking out the window until lunch arrived. He slept intermittently throughout the day. He was noted walking around the unit, watching television periodically, and participating for meals in the community room. SI/HI: Denies A/VH: Patient endorsed experiencing AH this morning, stating that he is hearing good voices that are telling him I love you or I hate you. Patient denies visual hallucinations. Sleep: Pt slept 8.25 hours last night per NOC shift, intermittent napping today ADL's: Poor ADL's Group attendance: No Were Meds taken: Yes Any med S/E: None noted or reported. Mental Status Exam: Appearance: Disheveled, unshaved, wearing green unit scrubs Eye contact: Good Behavior: Reserved, minimal, cooperative Speech: Clear, WNL Mood: Pleasant, quiet Affect: Flat Thought process: Delusional, internally preoccupied Thought Content: Nonsensical, stating he is tired of carrying other peoples trays on his back, their paychecks need to be picked up by them! Cognition: A&O X3 Insight: Poor Judgment: Poor Interventions: PRN's used: Nicotine lozenges, PRN Ativan 1mg PO, PRN Clozapine 50mg PO Therapeutic interventions: Provided 1:1 assessment with therapeutic communication and active listening, medication administration/education/monitoring, encouragement of personal hygiene, encouragement to participate in unit activities, behavior monitoring and intervention as needed; reality orientation, Q15 minute safety checks. Restraints/seclusion/emergency medication: N/A Justification: Patient is gravely disabled and unable to formulate a plan for food, snf and clothing. Pt is on a TCON. Pt continues to require medication adjustment and monitoring in a safe and therapeutic environment until placement found. Per Dr. Fleming, Disposition: Conservatorship and [place] of Mental Disorders (IMD) versus back to the community.
[2020-12-31 20:00] VITALS: BP 107/61
[2020-12-31] MEDS: clozapine 25mg tablet PO SCH (20:26)
--- NOTE | 2021-01-01 01:23 | NUR ---
Nursing Progress Note: Iam Conklin Legal Hold: T-Con Client on Involuntary status for GD Report received from Iam RN with use of SBAR. Why they are here: Clients mother contacted EMS because the client was not eating, drinking, or performing basic ADL's. Client refused to be transported to the ED by EMS. [employer] was notified and brought client to hospital. The client was agitated upon arrival to the ED, and received IM PRN Meds for agitation. Client is known to [facility] and has had prior admissions. Diagnosis/presenting symptoms: Schizophrenia, mood disorder, Meth use. Assessment: What has happened this shift: Patient noted to be sleeping/resting in bed at change of shift. Pt up asking this typewriter ribbon winder for a PRN nicotine lozenge. Pt stated he was doing well and wouldnt answer any other questions, he turned and walked away from this RN. Pt up for snacks and took all HS medication and retired early to bed. SI/HI: Denies A/VH: Denies Sleep: ADL's: Poor ADL's Group attendance: No Were Meds taken: Yes Any med S/E: None noted or reported. Mental Status Exam: Appearance: Disheveled, unshaved, wearing green unit scrubs Eye contact: Good Behavior: Reserved, minimal, cooperative Speech: Clear, WNL Mood: Pleasant, quiet Affect: Flat Thought process: Delusional, internally preoccupied Thought Content: could not assess Cognition: A&O X3 Insight: Poor Judgment: Poor Interventions: PRN's used: Therapeutic interventions: Provided 1:1 assessment with therapeutic communication and active listening, medication administration/education/monitoring, encouragement of personal hygiene, encouragement to participate in unit activities, behavior monitoring and intervention as needed; reality orientation, Q15 minute safety checks. Restraints/seclusion/emergency medication: N/A Justification: Patient is gravely disabled and unable to formulate a plan for food, mcc and clothing. Pt is on a TCON. Pt continues to require medication adjustment and monitoring in a safe and therapeutic environment until placement found. Per Dr. Fleming, Disposition: Conservatorship and [place] of Mental Disorders (IMD) versus back to the community.
[2021-01-01] MEDS: NICOTINE POLACRILEX 2 MG LOZENGE BC PRN ×3 (07:55→15:47)
[2021-01-01] MEDS: nicotine 21mg patch - 24 hr TD SCH (07:55)
[2021-01-01] MEDS: docusate sod 100mg capsule PO SCH ×2 (07:55→20:02)
[2021-01-01] MEDS: clozapine 100mg tablet PO SCH ×2 (07:56→20:02)
[2021-01-01 08:00] VITALS: BP 112/70
--- NOTE | 2021-01-01 12:32 | NUR ---
Sent notes to Public Guardian at their request. TESSY Slade
[2021-01-01] MEDS: clozapine 25mg tablet PO PRN (15:47)
[2021-01-01] MEDS: LORazepam 1 MG tablet PO PRN (15:47)
--- NOTE | 2021-01-01 17:44 | NUR ---
Nursing Progress Note: Iam Conklin Legal Hold: T-Con Client on Involuntary status for GD Report received from COLE Vitale with use of SBAR. Why they are here: Clients mother contacted EMS because the client was not eating, drinking, or performing basic ADL's. Client refused to be transported to the ED by EMS. [employer] was notified and brought client to hospital. The client was agitated upon arrival to the ED, and received IM PRN Meds for agitation. Client is known to [facility] and has had prior admissions. Diagnosis/presenting symptoms: Schizophrenia, mood disorder, Meth use. Assessment: What has happened this shift: Patient noted sleeping in bed at change of shift. He is compliant with all medications. He sat in the community room for breakfast, noted sitting by himself. He appears internally preoccupied AEB having a conversation with nobody in sight. He retreated back to his room after breakfast. 1:1 assessment completed, lungs CTA. Patient endorsed to this editorial writer that he is hearing good voices this morning, and that they are not bothering him. Pt denies SI/ HI or VH. He was noted walking around the unit throughout the day. Does not appear to be anxious or showing signs of agitation. He was observed sitting in a chair in the recreation room looking out the window. He continues to be polite, pleasant, and cooperative with care. Patient did not attend group today despite encouragement. He slept in his room periodically throughout the day. He joined peers on the outside patio today, noted interacting appropriately. He sat in the recreation room with peers later in the day, whispering nonsensical statements under his breath. This editorial writer walked into patients room and noted that he was staring into the corner talking to somebody who was not there, patient stating, you better get the hell out of here. This editorial writer asked patient if he was experiencing visual hallucinations which he denied. He slept intermittently throughout the day. Patient noted later in the day pacing the halls on the phone with his mother. Patient noted stating, They are [place] incarcerating me! My body weight is fine I am eating everything you put down my throat. Its not my fault the crank on the street is bunk right now. Its all a bunch of shit! Patient noted very agitated and upset, stating, No one likes getting booked on bunk charges mother fker! Patient given PRN Ativan 1mg PO for anxiety and PRN Clozaril 50mg PO for agitation with effectiveness. He was observed walking through the unit later on appropriately, talking quietly under his breath. He participated in the community room with peers for all snacks/ meals today. SI/HI: Denies A/VH: Hearing good voices. Patient noted staring into the corner talking to somebody who was not there, patient stating, you better get the hell out of here. However, he denies VH. Sleep: Pt slept 8.75 hours last night per NOC shift, intermittent napping today ADL's: Poor ADL's Group attendance: No Were Meds taken: Yes Any med S/E: None noted or reported. Mental Status Exam: Appearance: Disheveled, unshaved, wearing green unit scrubs Eye contact: Good Behavior: Reserved, minimal, cooperative Speech: Clear, WNL Mood: Pleasant, quiet Affect: Flat Thought process: Delusional, internally preoccupied Thought Content: Nonsensical statements Cognition: A&O X3 Insight: Poor Judgment: Poor Interventions: PRN's used: Nicotine lozenges, PRN Ativan 1mg PO, PRN Clozapine 50mg PO Therapeutic interventions: Provided 1:1 assessment with therapeutic communication and active listening, medication administration/education/monitoring, encouragement of personal hygiene, encouragement to participate in unit activities, behavior monitoring and intervention as needed; reality orientation, Q15 minute safety checks. Restraints/seclusion/emergency medication: N/A Justification: Patient is gravely disabled and unable to formulate a plan for food, alf and clothing. Pt is on a TCON. Pt continues to require medication adjustment and monitoring in a safe and therapeutic environment until placement found. Per Dr. Fleming, Disposition: Conservatorship and [place] of Mental Disorders (IMD) versus back to the community.
[2021-01-01 19:00] VITALS: BP 107/67
[2021-01-01] MEDS: clozapine 25mg tablet PO SCH (20:02)
--- NOTE | 2021-01-02 02:07 | NUR ---
Nursing Progress Note: Iam Conklin Legal Hold: T-Con Client on Involuntary status for GD Report received from Iam RN with use of SBAR. Why they are here: Clients mother contacted EMS because the client was not eating, drinking, or performing basic ADL's. Client refused to be transported to the ED by EMS. [employer] was notified and brought client to hospital. The client was agitated upon arrival to the ED, and received IM PRN Meds for agitation. Client is known to [facility] and has had prior admissions. Diagnosis/presenting symptoms: Schizophrenia, mood disorder, Meth use. Assessment: What has happened this shift: Patient was sleeping at change of shift. 1:1 assessment completed, denies MH symptoms. Pt up for a snack and took all HS medication without issue. Pt cooperative and stated he had a pretty good day. Pt isolated to room after snacks and retired to bed. SI/HI: Denies A/VH Pt denies VH. Sleep: ADL's: Poor ADL's Group attendance: No Were Meds taken: Yes Any med S/E: None noted or reported. Mental Status Exam: Appearance: Disheveled, unshaved, messy hair, wearing green unit scrubs Eye contact: Good Behavior: Reserved, minimal, cooperative Speech: Clear, WNL Mood: Pleasant, quiet Affect: Flat Thought process: Delusional, internally preoccupied Thought Content: Nonsensical statements Cognition: A&O X3 Insight: Poor Judgment: Poor Interventions: PRN's used: Therapeutic interventions: Provided 1:1 assessment with therapeutic communication and active listening, medication administration/education/monitoring, encouragement of personal hygiene, encouragement to participate in unit activities, behavior monitoring and intervention as needed; reality orientation, Q15 minute safety checks. Restraints/seclusion/emergency medication: N/A Justification: Patient is gravely disabled and unable to formulate a plan for food, senior care and clothing. Pt is on a TCON. Pt continues to require medication adjustment and monitoring in a safe and therapeutic environment until placement found. Per Dr. Fleming, Disposition: Conservatorship and [place] of Mental Disorders (IMD) versus back to the community.
[2021-01-02] MEDS: NICOTINE POLACRILEX 2 MG LOZENGE BC PRN ×3 (06:22→14:49)
[2021-01-02 07:11] VITALS: BP 117/70
[2021-01-02] MEDS: docusate sod 100mg capsule PO SCH ×2 (07:19→20:08)
[2021-01-02] MEDS: clozapine 100mg tablet PO SCH ×2 (07:19→20:08)
[2021-01-02] MEDS: nicotine 21mg patch - 24 hr TD SCH (07:21)
[2021-01-02 08:41] LABS: BASOPHILS % (AUTO) 0.6 % (0-1); EOSINOPHILS % (AUTO) 0.1 % (0-6); HEMATOCRIT 48.9 % (42.0-52.0); HEMOGLOBIN 16.4 g/dl (14.0-17.9); LYMPHOCYTES # (AUTO) 1.2 X10'3 (1.1-4.8); LYMPHOCYTES % (AUTO) 14.7 % (21-51); MEAN CORPUSCULAR HEMOGLOBIN 31.1 PG (27.0-31.0); MEAN CORPUSCULAR HGB CONC 33.5 g/dL (33.0-36.5); MEAN CORPUSCULAR VOLUME 92.8 FL (78-98); MEAN PLATELET VOLUME 9.3 FL (7.4-10.4); MONOCYTES # (AUTO) 0.6 X10'3 (0-0.9); MONOCYTES % (AUTO) 6.7 % (2-12); NEUTROPHILS # (AUTO) 6.5 X10'3 (1.8-7.7); NEUTROPHILS % (AUTO) 77.9 % (42-75); PLATELET COUNT 373 X10'3 (140-440); RED BLOOD COUNT 5.27 X10'6 (4.70-6.10); RED CELL DISTRIBUTION WIDTH 14.1 % (11.5-14.5); WHITE BLOOD COUNT 8.4 X10'3 (4.5-11.0)
--- NOTE | 2021-01-02 13:07 | NUR ---
Nursing Progress Note: Iam Conklin Legal Hold: T-Con Client on Involuntary status for GD Report received from COLE Mattson with use of SBAR. Why they are here: Clients mother contacted EMS because the client was not eating, drinking, or performing basic ADL's. Client refused to be transported to the ED by EMS. [employer] was notified and brought client to hospital. The client was agitated upon arrival to the ED, and received IM PRN Meds for agitation. Client is known to [facility] and has had prior admissions. Diagnosis/presenting symptoms: Schizophrenia, mood disorder, Meth use. Assessment: What has happened this shift: Patient was sleeping at change of shift. Pt was up early asking for nicotine lozenges. Pt is cooperative for care and assessments and did not have any behavior issues. When asked if the voices were bothering him, he responded, not today. pt can be observed responding to IS most of the day. Pt was talking to himself in the rec room and while walking in the halls. All meds were taken without issue. SI/HI: Denies A/VH Pt denies VH. Sleep: see sleep assessment ADL's: Poor ADL's Group attendance: No Were Meds taken: Yes Any med S/E: None noted or reported. Mental Status Exam: Appearance: Disheveled, unshaved, messy hair, wearing green unit scrubs Eye contact: Good Behavior: Reserved, minimal, cooperative Speech: Clear, WNL Mood: Pleasant, quiet Affect: Flat Thought process: Delusional, internally preoccupied Thought Content: Nonsensical statements Cognition: A&O X3 Insight: Poor Judgment: Poor Interventions: PRN's used: Therapeutic interventions: Provided 1:1 assessment with therapeutic communication and active listening, medication administration/education/monitoring, encouragement of personal hygiene, encouragement to participate in unit activities, behavior monitoring and intervention as needed; reality orientation, Q15 minute safety checks. Restraints/seclusion/emergency medication: N/A Justification: Patient is gravely disabled and unable to formulate a plan for food, correction and clothing. Pt is on a TCON. Pt continues to require medication adjustment and monitoring in a safe and therapeutic environment until placement found. Per Dr. Fleming, Disposition: Conservatorship and [place] of Mental Disorders (IMD) versus back to the community.
[2021-01-02 19:00] VITALS: BP 102/58
[2021-01-02] MEDS ORDERED: clozapine 25mg tablet PO SCH (21:00)
--- NOTE | 2021-01-03 01:41 | NUR ---
Nursing Progress Note: Iam Conklin Legal Hold: T-Con Client on Involuntary status for GD Report received from COLE Mattson with use of SBAR. Why they are here: Clients mother contacted EMS because the client was not eating, drinking, or performing basic ADL's. Client refused to be transported to the ED by EMS. [employer] was notified and brought client to hospital. The client was agitated upon arrival to the ED, and received IM PRN Meds for agitation. Client is known to [facility] and has had prior admissions. Diagnosis/presenting symptoms: Schizophrenia, mood disorder, Meth use. Assessment: What has happened this shift: Patient was sleeping at change of shift. Pt isolated to his room but was seen out a few times momentarily. Pt reports that the voices are doing better and that clozaril is working. Pt can be seen talking to himself most of the time. all hs meds taken without issue. SI/HI: Denies A/VH Pt denies VH. Sleep: see sleep assessment ADL's: Poor ADL's Group attendance: No Were Meds taken: Yes Any med S/E: None noted or reported. Mental Status Exam: Appearance: Disheveled, unshaved, messy hair, wearing green unit scrubs Eye contact: Good Behavior: Reserved, minimal, cooperative Speech: Clear, WNL Mood: Pleasant, quiet Affect: Flat Thought process: Delusional, internally preoccupied Thought Content: nonsensical Cognition: A&O X3 Insight: Poor Judgment: Poor Interventions: PRN's used: nicotine lozenge Therapeutic interventions: Provided 1:1 assessment with therapeutic communication and active listening, medication administration/education/monitoring, encouragement of personal hygiene, encouragement to participate in unit activities, behavior monitoring and intervention as needed; reality orientation, Q15 minute safety checks. Restraints/seclusion/emergency medication: N/A Justification: Patient is gravely disabled and unable to formulate a plan for food, chcf and clothing. Pt is on a TCON. Pt continues to require medication adjustment and monitoring in a safe and therapeutic environment until placement found. Per Dr. Fleming, Disposition: Conservatorship and [place] of Mental Disorders (IMD) versus back to the community.
[2021-01-03] MEDS: NICOTINE POLACRILEX 2 MG LOZENGE BC PRN ×4 (06:34→16:16)
[2021-01-03] MEDS: docusate sod 100mg capsule PO SCH ×2 (07:28→20:19)
[2021-01-03] MEDS: clozapine 100mg tablet PO SCH ×2 (07:28→20:19)
[2021-01-03] MEDS: nicotine 21mg patch - 24 hr TD SCH (07:30)
[2021-01-03 08:00] VITALS: BP 99/65
--- NOTE | 2021-01-03 15:12 | NUR ---
Nursing Progress Note: Legal Hold: TCON Client on Involuntary status for GD Report received from Jeannie Chang RN with use of SBAR. Why they are here: Clients mother contacted EMS because the client was not eating, drinking, or performing basic ADL's. Client refused to be transported to the ED by EMS. [facility] was notified and brought client to hospital. The client was agitated upon arrival to the ED, and received IM PRN meds for agitation. Client is known to [facility] and has had prior admissions. Diagnosis/presenting symptoms: Schizophrenia, mood disorder, Meth use. Assessment: What has happened this shift: Pt was up before breakfast. He requested a nicotine lozenge at 0634. Pt was observed pacing and responding to internal stimuli; talking to himself. He was observed doing so again more animatedly after lunch. Pt appeared to be arguing with unseen others. Pt may be minimizing his symptoms. When asked by this RN if he was hearing voices, he replied, "a little bit but not so bad." Pt denied that the voices were saying anything mean or scary. Pt's Clozaril was increased to 275 mg HS. SI/HI: Pt denies. A/VH: Pt denies. Sleep: Pt slept 9 hours last night per noc shift report. ADL's: Independent, needs encouragement with personal hygiene. Group attendance: No Were Meds taken: Yes Any med S/E: None noted or reported. Mental Status Exam: Appearance: Thin, disheveled older appearing gentleman with messy hair and facial stubble dressed in green scrubs and a beige sweater. Eye contact: Fair to good. Behavior: Cooperative, paces, talks and argues with himself, watches TV. Speech: Clear, audible. Mood: Good Affect: Restless, somewhat guarded. Thought process: Delusional, somewhat disorganized, internally preoccupied, responding to internal stimuli. Thought Content: Focused on nicotine lozenges. Cognition: A/O X3, easily distracted. Insight: Poor Judgment: Poor Interventions: PRN's used: Nicotine lozenges Therapeutic interventions: 1:1 assessment, therapeutic communication, active listening, medication administration/education/monitoring, encouragement of personal hygiene, encouragement to participate in unit activities, behavior monitoring and intervention as needed; distraction, redirection, reality orientation, limit setting, Q15 minute safety checks. Restraints/seclusion/emergency medication: N/A Justification: Patient is gravely disabled and unable to formulate a plan for food, [facility] and clothing. Pt is on a TCON. Pt continues to require medication adjustment and monitoring in a safe and therapeutic environment until placement found.
[2021-01-03 20:00] VITALS: BP 104/59
[2021-01-03] MEDS: DESMOPRESSIN ACETATE 0.1 MG TABLET PO SCH (20:19)
[2021-01-03] MEDS ORDERED: clozapine 25mg tablet PO SCH (21:00)
--- NOTE | 2021-01-04 02:34 | NUR ---
Nursing Progress Note: Legal Hold: T-Con Client on Involuntary status for GD Report received from COLE Vitale with use of SBAR. Why they are here: Clients mother contacted EMS because the client was not eating, drinking, or performing basic ADL's. Client refused to be transported to the ED by EMS. [employer] was notified and brought client to hospital. The client was agitated upon arrival to the ED, and received IM PRN Meds for agitation. Client is known to [facility] and has had prior admissions. Diagnosis/presenting symptoms: Schizophrenia, mood disorder, Meth use. Assessment: What has happened this shift: Received patient taking a nap. He's disheveled and wearing dirty clothes. He appears to have not showered recently. Patient isolates a lot, comes out to request nicotine lozenges. The patient occasionally comes out and paces the halls while talking to himself. He says that he gets bored quickly, and has to move around. Patient is cooperative with nursing and HS med pass. SI/HI: Denies A/VH: Denies Sleep: See sleep assessment ADL's: Independent Group attendance: N/A Were Meds taken: Yes Any med S/E: None noted or reported. Mental Status Exam: Appearance: Disheveled; unshaved, dirty clothes Eye contact: fair Behavior: Isolative, guarded, delusional Speech: normal rate and volume Mood: "Good" Affect: flat Thought process: linear Thought Content: concerned about upcoming court hearing Cognition: A/O X3 Insight: Poor Judgment: Poor Interventions: PRN's used: Nicotine lozenges Therapeutic interventions: Provided 1:1 assessment with therapeutic communication and active listening, medication administration/education/monitoring, encouragement of personal hygiene, encouragement to participate in unit activities, behavior monitoring and intervention as needed; reality orientation, Q15 minute safety checks. Restraints/seclusion/emergency medication: N/A Justification: Patient is gravely disabled and unable to formulate a plan for food, alf and clothing. Pt is on a TCON. Pt continues to require medication adjustment and monitoring in a safe and therapeutic environment until placement found.
[2021-01-04 08:00] VITALS: BP 101/69
[2021-01-04] MEDS: docusate sod 100mg capsule PO SCH ×2 (08:26→20:17)
[2021-01-04] MEDS: NICOTINE POLACRILEX 2 MG LOZENGE BC PRN ×4 (08:26→16:48)
[2021-01-04] MEDS: clozapine 100mg tablet PO SCH ×2 (08:26→20:17)
[2021-01-04] MEDS: nicotine 21mg patch - 24 hr TD SCH (08:29)
--- NOTE | 2021-01-04 17:50 | NUR ---
Nursing Progress Note: Iam Conklin Legal Hold: T-Con Client on Involuntary status for GD Report received from COLE Quinonez with use of SBAR. Why they are here: Clients mother contacted EMS because the client was not eating, drinking, or performing basic ADL's. Client refused to be transported to the ED by EMS. [employer] was notified and brought client to hospital. The client was agitated upon arrival to the ED, and received IM PRN Meds for agitation. Client is known to [facility] and has had prior admissions. Diagnosis/presenting symptoms: Schizophrenia, mood disorder, Meth use. Assessment: What has happened this shift: Patient noted sleeping in bed at shift change. He participated with peers in the community room for breakfast. He continues to be polite and cooperative upon interacting with this public relations writer. He endorsed that he feels fine and that it is just another average day. He is compliant with all medications. He was observed walking around the unit after breakfast and sitting in the recreation room with peers. 1:1 assessment completed, lungs CTA. Patient denies SI/HI and VH. He endorsed to this public relations writer that he is hearing good voices today. Patient appears internally preoccupied throughout the day. He was noted smiling and mumbling under his breath while walking throughout the unit. Patient approached this public relations writer at 1200 asking for a PRN Nicotine lozenge. Does not appear to be anxious or showing signs of agitation. Patient took a shower on this shift. He was dressed in clean clothing with clean linen applied to bed. He was observed walking through the unit, talking on the phone, stating, No mom you shouldnt worry so much! I am self-reliant! He was observed periodically sitting in a chair in the recreation room looking out the window. Patient was noted standing near the nurses station, starting into his reflection and whispering nonsensical statements under his breath. He slept intermittently throughout the day. He participated in the community room with peers for all snacks/ meals today. SI/HI: Denies A/VH: Hearing good voices today Sleep: Pt slept 9.5 hours last night per NOC shift, intermittent napping today ADL's: Independent Group attendance: No group provided today Were Meds taken: Yes Any med S/E: None noted or reported. Mental Status Exam: Appearance: Clean, showered today, wearing personal t-shirt and green unit scrubs, scruffy cody. Eye contact: Good Behavior: Reserved, isolative, cooperative, delusional Speech: Clear, WNL Mood: Feels fine, pleasant, quiet Affect: Flat Thought process: Linear, internally preoccupied Thought Content: Nonsensical statements Cognition: A&O X3 Insight: Poor Judgment: Poor Interventions: PRN's used: Nicotine lozenges Therapeutic interventions: Provided 1:1 assessment with therapeutic communication and active listening, medication administration/education/monitoring, encouragement of personal hygiene, encouragement to participate in unit activities, behavior monitoring and intervention as needed; reality orientation, Q15 minute safety checks. Restraints/seclusion/emergency medication: N/A Justification: Patient is gravely disabled and unable to formulate a plan for food, mcfp and clothing. Pt is on a TCON. Pt continues to require medication adjustment and monitoring in a safe and therapeutic environment until placement found. Per GENE Cox, Continue monitoring by Staff, Milieu, Group, and Individual counseling as needed. Patient is unable to formulate a plan to safely meet their basic needs of food, clothing, and mcfp due to the severity of their mental illness. Discharge as per julia.
[2021-01-04 20:00] VITALS: BP 114/72
[2021-01-04] MEDS: DESMOPRESSIN ACETATE 0.1 MG TABLET PO SCH (20:17)
--- NOTE | 2021-01-05 03:01 | NUR ---
Nursing Progress Note: Legal Hold: T-Con Client on Involuntary status for GD Report received from COLE Vitale with use of SBAR. Why they are here: Clients mother contacted EMS because the client was not eating, drinking, or performing basic ADL's. Client refused to be transported to the ED by EMS. [employer] was notified and brought client to hospital. The client was agitated upon arrival to the ED, and received IM PRN Meds for agitation. Client is known to [facility] and has had prior admissions. Diagnosis/presenting symptoms: Schizophrenia, mood disorder, Meth use. Assessment: What has happened this shift: The patient was found napping upon entering his room. He awoke to his name. The patient appears to have showered today, but has not shaved recently. His clothes appear clean. Patient states that he had a good day, "I talked to my mom a lot. She worries." He denies SI/HI, but endorses voices that are not too disturbing today, "they're not being mean." Patient continues to isolate to his room, but comes out to request nicotine lozenges. He's polite and cooperative with HS med pass, after eating his snacks. SI/HI: Denies A/VH: Endorses AH Sleep: See sleep assessment ADL's: Independent Group attendance: N/A Were Meds taken: Yes Any med S/E: None noted or reported. Mental Status Exam: Appearance: Disheveled; unshaved, clean clothes Eye contact: fair Behavior: Isolative, guarded, delusional Speech: normal rate and volume Mood: "Good" Affect: flat Thought process: linear Thought Content: concerned about upcoming court hearing Cognition: A/O X3 Insight: Poor Judgment: Poor Interventions: PRN's used: Nicotine lozenges Therapeutic interventions: Provided 1:1 assessment with therapeutic communication and active listening, medication administration/education/monitoring, encouragement of personal hygiene, encouragement to participate in unit activities, behavior monitoring and intervention as needed; reality orientation, Q15 minute safety checks. Restraints/seclusion/emergency medication: N/A Justification: Patient is gravely disabled and unable to formulate a plan for food, nursing home and clothing. Pt is on a TCON. Pt continues to require medication adjustment and monitoring in a safe and therapeutic environment until placement found.
[2021-01-05 08:00] VITALS: BP 100/64
[2021-01-05] MEDS: clozapine 100mg tablet PO SCH ×2 (08:14→20:18)
[2021-01-05] MEDS: docusate sod 100mg capsule PO SCH ×2 (08:14→20:18)
[2021-01-05] MEDS: nicotine 21mg patch - 24 hr TD SCH (08:14)
[2021-01-05] MEDS: NICOTINE POLACRILEX 2 MG LOZENGE BC PRN ×3 (08:14→16:25)
[2021-01-05] MEDS: clozapine 25mg tablet PO PRN (10:43)
[2021-01-05] MEDS: LORazepam 1 MG tablet PO PRN (10:43)
--- NOTE | 2021-01-05 17:36 | NUR ---
Nursing Progress Note: Iam Conklin Legal Hold: T-Con Client on Involuntary status for GD Report received from Jeannie De Guzman RN with use of SBAR. Why they are here: Clients mother contacted EMS because the client was not eating, drinking, or performing basic ADL's. Client refused to be transported to the ED by EMS. [employer] was notified and brought client to hospital. The client was agitated upon arrival to the ED, and received IM PRN Meds for agitation. Client is known to [facility] and has had prior admissions. Diagnosis/presenting symptoms: Schizophrenia, mood disorder, Meth use. Assessment: What has happened this shift: Patient noted sleeping in bed at change of shift. He continues to be polite, pleasant, and cooperative with care. He joined in the community room for breakfast with peers. He endorsed to this resume writer that he is doing fine this morning. 1:1 assessment completed, lungs CTA. He is compliant with all medications. He retreated back to his room after breakfast and was noted making nonsensical statements while quietly talking to himself. Patient noted stating, I am space echo! I own all universes! and [employer] projection [employer] [place]! Youre going to do the right thing KRCR, dont fk up no more! He was observed walking around the unit throughout the morning and approached this resume writer for a PRN Nicotine Lozenge. He denies SI/HI and VH. Patient refused to participate in group therapy today despite encouragement. Patient later noted yelling out in his room, having a conversation with somebody, yet with no one in sight. Patient observed aggressively yelling, get out of here mother fker! You listen to me mother fker! Patient was given PRN Clozaril PO 50mg for agitation at approximately 1045 with effectiveness. Patient noted to be anxious and paranoid, talking to himself about someone controlling his thoughts. He was given PRN Ativan 1mg PO at approximately 1045 with effectiveness. Patient later noted endorsing to this resume writer, thank you for caring about my sanity. Patient continues to appear internally preoccupied throughout the day, however, no recurrent outbursts were noted. He was observed to be more self-isolative to his room today than yesterday. He slept intermittently throughout the day and participated in the community room with peers for all snacks/ meals today. SI/HI: Denies A/VH: Hearing good voices today Sleep: Pt slept 9.75 hours last night per NOC shift, intermittent napping today ADL's: Independent Group attendance: No Were Meds taken: Yes Any med S/E: None noted or reported. Mental Status Exam: Appearance: Clean, wearing personal t-shirt and basketball shorts, scruffy cody. Eye contact: Good Behavior: Reserved, isolative, cooperative, delusional Speech: Clear, WNL Mood: Doing fine, pleasant, quiet Affect: Flat Thought process: Linear, internally preoccupied Thought Content: Nonsensical statements Cognition: A&O X3 Insight: Poor Judgment: Poor Interventions: PRN's used: Nicotine lozenges, PRN Clozaril PO 50mg, PRN Ativan 1mg PO Therapeutic interventions: Provided 1:1 assessment with therapeutic communication and active listening, medication administration/education/monitoring, encouragement of personal hygiene, encouragement to participate in unit activities, behavior monitoring and intervention as needed; reality orientation, Q15 minute safety checks. Restraints/seclusion/emergency medication: N/A Justification: Patient is gravely disabled and unable to formulate a plan for food, residential and clothing. Pt is on a TCON. Pt continues to require medication adjustment and monitoring in a safe and therapeutic environment until placement found. Per GENE Cox, Continue monitoring by Staff, Milieu, Group, and Individual counseling as needed. Patient is unable to formulate a plan to safely meet their basic needs of food, clothing, and residential due to the severity of their mental illness. Discharge as per conservator.
[2021-01-05] MEDS: DESMOPRESSIN ACETATE 0.1 MG TABLET PO SCH (20:19)
[2021-01-05 20:25] VITALS: BP 102/69
--- NOTE | 2021-01-06 01:30 | NUR ---
Nursing Progress Note: Legal Hold: T-Con Client on Involuntary status for GD Report received from COLE Vitale with use of SBAR. Why they are here: Clients mother contacted EMS because the client was not eating, drinking, or performing basic ADL's. Client refused to be transported to the ED by EMS. [employer] was notified and brought client to hospital. The client was agitated upon arrival to the ED, and received IM PRN Meds for agitation. Client is known to [facility] and has had prior admissions. Diagnosis/presenting symptoms: Schizophrenia, mood disorder, Meth use. Assessment: What has happened this shift: The patient was in his room at shift change. He could be heard from outside the door talking to himself. He stopped as I entered the room. When asked, he states that he is hearing voices, "but they're not that bad." He continues to isolate to his room, but comes out occasionally for nicotine lozenges. He's been pleasant and cooperative with this nurse. Patient denies MH symptoms, but endorses AH, "they're not bad now, but they were real bad earlier today." He went to sleep right after HS med pass. SI/HI: Denies A/VH: Endorses AH Sleep: See sleep assessment ADL's: Independent Group attendance: N/A Were Meds taken: Yes Any med S/E: None noted or reported. Mental Status Exam: Appearance: Disheveled; unshaved, clean clothes Eye contact: fair Behavior: Isolative, guarded, delusional Speech: normal rate and volume Mood: "Good" Affect: flat Thought process: linear Thought Content: concerned about upcoming court hearing Cognition: A/O X3 Insight: Poor Judgment: Poor Interventions: PRN's used: Nicotine lozenges Therapeutic interventions: Provided 1:1 assessment with therapeutic communication and active listening, medication administration/education/monitoring, encouragement of personal hygiene, encouragement to participate in unit activities, behavior monitoring and intervention as needed; reality orientation, Q15 minute safety checks. Restraints/seclusion/emergency medication: N/A Justification: Patient is gravely disabled and unable to formulate a plan for food, prison and clothing. Pt is on a TCON. Pt continues to require medication adjustment and monitoring in a safe and therapeutic environment until placement found.
[2021-01-06] MEDS: NICOTINE POLACRILEX 2 MG LOZENGE BC PRN ×4 (04:46→16:05)
[2021-01-06 08:00] VITALS: BP 109/71
[2021-01-06] MEDS: clozapine 100mg tablet PO SCH ×2 (08:15→20:23)
[2021-01-06] MEDS: docusate sod 100mg capsule PO SCH ×2 (08:15→20:23)
[2021-01-06] MEDS: nicotine 21mg patch - 24 hr TD SCH (08:16)
[2021-01-06] MEDS: LORazepam 1 MG tablet PO PRN (11:14)
[2021-01-06] MEDS: clozapine 25mg tablet PO PRN (11:15)
--- NOTE | 2021-01-06 17:29 | NUR ---
Nursing Progress Note: Iam Conklin Legal Hold: T-Con Client on Involuntary status for GD Report received from COLE Dorsey with use of SBAR. Why they are here: Clients mother contacted EMS because the client was not eating, drinking, or performing basic ADL's. Client refused to be transported to the ED by EMS. [employer] was notified and brought client to hospital. The client was agitated upon arrival to the ED, and received IM PRN Meds for agitation. Client is known to [facility] and has had prior admissions. Diagnosis/presenting symptoms: Schizophrenia, mood disorder, Meth use. Assessment: What has happened this shift: Patient noted sleeping in bed at shift change. He joined with peers in the community room, noted sitting by himself quietly. 1:1 assessment completed, lungs CTA. He was observed sitting in his room after breakfast. When this tech writer entered the room, patient noted to be slightly irritable stating, I already had my blood drawn! Pt requested a PRN Nicotine lozenge. He is compliant with all medications. He continues to be polite, pleasant, and cooperative with care. He was observed walking around the unit throughout the morning. He was noted making nonsensical statements while talking to himself in his room. Patient stating loudly, you better get out of here mother fker! and I know what the universe is doing, you believe it mother fker! Patient given PRN Clozaril 50mg PO for agitation and PRN Ativan 1mg PO for anxiety at approximately 1118 with effectiveness. Patient did not attend group therapy today. He remained in his room until lunch arrived and participated with peers in the group room. He denies SI/HI and VH. Patient was observed sleeping in his room after lunch. He approached this tech writer later in the day asking for a PRN nicotine lozenge and retreated back to his room. Patient continues to appear internally preoccupied throughout the day, however, no recurrent outbursts were noted. He slept intermittently throughout the day and participated in the community room with peers for all snacks and meals. SI/HI: Denies A/VH: Responding to auditory hallucinations Sleep: Pt slept 8.5 hours last night per NOC shift, intermittent napping today ADL's: Independent Group attendance: No Were Meds taken: Yes Any med S/E: None noted or reported. Mental Status Exam: Appearance: Clean, wearing personal t-shirt and basketball shorts, scruffy cody. Eye contact: Good Behavior: Reserved, isolative, cooperative, delusional Speech: Clear, WNL Mood: Pleasant, quiet Affect: Flat Thought process: Linear, internally preoccupied Thought Content: Nonsensical statements Cognition: A&O X3 Insight: Poor Judgment: Poor Interventions: PRN's used: Nicotine lozenges, PRN Clozaril PO 50mg, PRN Ativan 1mg PO Therapeutic interventions: Provided 1:1 assessment with therapeutic communication and active listening, medication administration/education/monitoring, encouragement of personal hygiene, encouragement to participate in unit activities, behavior monitoring and intervention as needed; reality orientation, Q15 minute safety checks. Restraints/seclusion/emergency medication: N/A Justification: Patient is gravely disabled and unable to formulate a plan for food, nursing home and clothing. Pt is on a TCON. Pt continues to require medication adjustment and monitoring in a safe and therapeutic environment until placement found. Per GENE Cox, Continue monitoring by Staff, Milieu, Group, and Individual counseling as needed. Patient is unable to formulate a plan to safely meet their basic needs of food, clothing, and nursing home due to the severity of their mental illness. Discharge as per conservator.
[2021-01-06 20:00] VITALS: BP 103/64
[2021-01-06] MEDS: DESMOPRESSIN ACETATE 0.1 MG TABLET PO SCH (20:24)
[2021-01-06] MEDS: clozapine 25mg tablet PO SCH (20:24)
--- NOTE | 2021-01-07 01:15 | NUR ---
Nursing Progress Note: Legal Hold: T-Con Client on Involuntary status for GD Report received from COLE Vitale with use of SBAR. Why they are here: Clients mother contacted EMS because the client was not eating, drinking, or performing basic ADL's. Client refused to be transported to the ED by EMS. [employer] was notified and brought client to hospital. The client was agitated upon arrival to the ED, and received IM PRN Meds for agitation. Client is known to [facility] and has had prior admissions. Diagnosis/presenting symptoms: Schizophrenia, mood disorder, Meth use. Assessment: What has happened this shift: The patient decided to remain in his bed tonight. He looks disheveled, unshaved, and hair has not been combed. He has worn the same clothes for days now. He says he doesn't feel like doing anything. He denies depression. He declined getting up for snack time, but was brought some cookies with HS meds. He continues to be pleasant and cooperative. SI/HI: Denies A/VH: Endorses AH Sleep: See sleep assessment ADL's: Independent Group attendance: N/A Were Meds taken: Yes Any med S/E: None reported or observed. Mental Status Exam: Appearance: Disheveled; unshaved, same clothes as yesterday Eye contact: fair Behavior: Isolative, guarded, delusional Speech: normal rate and volume Mood: "Good" Affect: flat Thought process: linear Thought Content: concerned about upcoming court hearing Cognition: A/O X3 Insight: Poor Judgment: Poor Interventions: PRN's used: Nicotine lozenges Therapeutic interventions: Provided 1:1 assessment with therapeutic communication and active listening, medication administration/education/monitoring, encouragement of personal hygiene, encouragement to participate in unit activities, behavior monitoring and intervention as needed; reality orientation, Q15 minute safety checks. Restraints/seclusion/emergency medication: N/A Justification: Patient is gravely disabled and unable to formulate a plan for food, nursing home and clothing. Pt is on a TCON. Pt continues to require medication adjustment and monitoring in a safe and therapeutic environment until placement found.
[2021-01-07] MEDS: docusate sod 100mg capsule PO SCH ×2 (07:41→19:59)
[2021-01-07] MEDS: nicotine 21mg patch - 24 hr TD SCH (07:41)
[2021-01-07] MEDS: NICOTINE POLACRILEX 2 MG LOZENGE BC PRN ×3 (07:41→17:01)
[2021-01-07] MEDS: clozapine 25mg tablet PO SCH ×2 (07:42→20:00)
[2021-01-07 07:48] VITALS: BP 106/66
--- NOTE | 2021-01-07 08:09 | NUR ---
PLACEMENT Sent last 2 weeks of notes to [facility] office at their request. TESSY Slade
--- NOTE | 2021-01-07 15:54 | NUR ---
Nursing Progress Note: Legal Hold: T-Con Client on Involuntary status for GD Report received from COLE Vitale with use of SBAR. Why they are here: Clients mother contacted EMS because the client was not eating, drinking, or performing basic ADL's. Client refused to be transported to the ED by EMS. [employer] was notified and brought client to hospital. The client was agitated upon arrival to the ED, and received IM PRN Meds for agitation. Client is known to [facility] and has had prior admissions. Diagnosis/presenting symptoms: Schizophrenia, mood disorder, Meth use. Assessment: What has happened this shift: Patient resting quietly in bed at start of shift. Eats meals in community room with peers. Cooperative and pleasant answers, Yes Maam. whenever conversing with staff. Noted talking to himself frequently and to his reflection in the windows often stopping to stare and talk to himself. Appears agitated when responding to internal stimuli. Restless/ paces unit. SI/HI: Denies A/VH: Responding to auditory hallucinations Sleep: 9.75 hours per NOC. 1 hour in the morning. ADL's: Independent Group attendance: No Were Meds taken: Yes Any med S/E: None noted or reported. Mental Status Exam: Appearance: Clean, scruffy cody, dressed appropriately for unit in personal clothing. Eye contact: Good Behavior: Cooperative, guarded, restless, responds to internal stimuli. Speech: Clear, WNL, pressured when responding to internal stimuli Mood: Good. Appears anxious. Affect: Blunted Thought process: Internally preoccupied Thought Content: Nonsensical statements Cognition: A&O X3 Insight: Poor Judgment: Poor Interventions: PRN's used: Nicotine lozenge Therapeutic interventions: Provided 1:1 assessment with therapeutic communication and active listening, medication administration/education/monitoring, encouragement of personal hygiene, encouragement to participate in unit activities, behavior monitoring and intervention as needed; reality orientation, Q15 minute safety checks. Restraints/seclusion/emergency medication: N/A Justification: Patient is gravely disabled and unable to formulate a plan for food, intermediate and clothing. Pt is on a TCON. Pt continues to require medication adjustment and monitoring in a safe and therapeutic environment until placement found. Per GENE Cox, Continue monitoring by Staff, Milieu, Group, and Individual counseling as needed. Patient is unable to formulate a plan to safely meet their basic needs of food, clothing, and intermediate due to the severity of their mental illness. Discharge as per conservator.
[2021-01-07 19:34] VITALS: BP 112/79
[2021-01-07] MEDS: clozapine 100mg tablet PO SCH (20:00)
[2021-01-07] MEDS: DESMOPRESSIN ACETATE 0.1 MG TABLET PO SCH (20:00)
--- NOTE | 2021-01-07 22:13 | NUR ---
Nursing Progress Note: Legal Hold: T-Con Client on Involuntary status for GD Report received from COLE Vitale with use of SBAR. Why they are here: Clients mother contacted EMS because the client was not eating, drinking, or performing basic ADL's. Client refused to be transported to the ED by EMS. [facility] was notified and brought client to hospital. The client was agitated upon arrival to the ED, and received IM PRN Meds for agitation. Client is known to [facility] and has had prior admissions. Diagnosis/presenting symptoms: Schizophrenia, mood disorder, Meth use. Assessment: What has happened this shift: Pt was in bed at change of shift. Remained in bed until snack time. Pt isolates to himself while having snack and returned to bed. SI/HI: Denies A/VH: denies but appears to be internally preoccupied Sleep: see sleep hours ADL's: Independent Group attendance: No Were Meds taken: Yes Any med S/E: None noted or reported. Mental Status Exam: Appearance: Clean, scruffy cody, dressed appropriately for unit in personal clothing. Eye contact: Good Behavior: Cooperative, guarded, restless, responds to internal stimuli. Speech: Clear, WNL, pressured when responding to internal stimuli Mood: Good. Appears anxious. Affect: Blunted Thought process: Internally preoccupied Thought Content: Nonsensical statements Cognition: A&O X3 Insight: Poor Judgment: Poor Interventions: PRN's used: Nicotine lozenge Therapeutic interventions: Provided 1:1 assessment with therapeutic communication and active listening, medication administration/education/monitoring, encouragement of personal hygiene, encouragement to participate in unit activities, behavior monitoring and intervention as needed; reality orientation, Q15 minute safety checks. Restraints/seclusion/emergency medication: N/A Justification: Patient is gravely disabled and unable to formulate a plan for food, mcc and clothing. Pt is on a TCON. Pt continues to require medication adjustment and monitoring in a safe and therapeutic environment until placement found. Per GENE Cox, Continue monitoring by Staff, Milieu, Group, and Individual counseling as needed. Patient is unable to formulate a plan to safely meet their basic needs of food, clothing, and mcc due to the severity of their mental illness. Discharge as per anniaator.
[2021-01-08] MEDS: clozapine 25mg tablet PO SCH ×2 (07:11→20:59)
[2021-01-08] MEDS: NICOTINE POLACRILEX 2 MG LOZENGE BC PRN ×5 (07:11→21:15)
[2021-01-08] MEDS: docusate sod 100mg capsule PO SCH (07:11)
[2021-01-08] MEDS: nicotine 21mg patch - 24 hr TD SCH (07:12)
[2021-01-08 07:35] VITALS: BP 110/67
[2021-01-08] MEDS: LORazepam 1 MG tablet PO PRN ×2 (09:15→21:15)
--- NOTE | 2021-01-08 13:42 | NUR ---
Reassessment: Pt continues w/ 100% meal intake on regular diet since admission. Pt compliant w/ medications. LBM 01/06. No nutritional intervention at this time, will continue to monitor. Recs: 1. Continue Regular diet as tolerated 2. Bowel care per rx 3. Weekly wts Addendum: 01/08/21 at [address] Amended: Links added.
--- NOTE | 2021-01-08 16:47 | NUR ---
Nursing Progress Note: Legal hold: TCon Client on involuntary status for GD Report received from nurse with use of SBAR: COLE Vitale Why are they here: Clients mother contacted EMS because the client was not eating, drinking, or performing basic ADL's. Client refused to be transported to the ED by EMS. [employer] was notified and brought client to hospital. The client was agitated upon arrival to the ED, and received IM PRN Meds for agitation. Client is known to [facility] and has had prior admissions. Diagnosis/presenting symptoms: Schizophrenia, mood disorder, Meth use. Assessment What has happened this shift: Received pt. sleeping in bed at the beginning of the shift, he was awoken by staff to attend breakfast in the Group Room. 1:1 completed afterwards, pt. presents cooperative, anxious, agitated at times, and is actively responding to internal stimuli. However, he initially denies any MH s/s and appears to be minimizing, pt. states, "Everything's fine here." Throughout the morning, pt. appeared to exhibit increased anxiety and agitation AEB increasingly responding to internal stimuli aloud and agitatedly stating, "Iam, you're a God-damn fluke!" This senior mortgage underwriter provide active listening and positive encouragement and pt. was able to be redirected and accepted PRN Ativan. When questioned by this senior mortgage underwriter regarding who he is talking to, pt. stated, "It's my animal damage control agent! I'm talking to everyone." Pt's thought process is tangental and disorganized. He goes on to report in a paranoid delusional manner that he is telepathically communicating with the television and believes that MARILOU is trying to make him a homosexual. Pt. 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 When questioned regarding V/ABRAHAM, pt. reports seeing "Hindu Beings." Pt. continues to c/o hard stools, this was endorsed to Dr. Deleon and Colace increased to 250mg BID. He remains up throughout the day, and no other agitated episodes exhibited, will continue to monitor. S/I, H/I: Denies A/VH: Pt. reports ongoing A/ABRAHAM, and V/ABRAHAM of "Hindu Beings." Sleep: Sleep hours are 8.5, and pt. reported he slept well ADL's: Pt. requires some encouragement and direction Group attendance: No Were meds taken: Yes Any med S/E: None Mental Status Exam Appearance: Hair and clothing disheveled and malodorous, however pt. did shower with encouragement Eye contact: Good, intense at times Behavior: Cooperative, anxious, agitated at times, and actively responding to internal stimuli Speech: Hyperverbal and tangental Mood: Pleasant, however becomes anxious and agitated at times Affect: Labile Thought process: Tangental and disorganized Thought Content: Ongoing A/V/ABRAHAM and paranoid delusions Cognition: A&O X3 Insight: Poor Judgment: Poor Interventions PRN's used: Ativan Therapeutic interventions: Introduced self and established rapport, maintained a safe and supportive environment, ensured contract for safety, provided clear and simple instructions, attempted to orient to reality, provided active listening and positive encouragement, encouraged independent performance of ADLs, and maintained Q 15min safety checks. Restraints/seclusion/emergency medication: N/A Justification of Continued Inpatient Treatment: Per Dr. Deleon, pt. continues to require medication adjustments and a safe and supportive environment.
[2021-01-08 20:00] VITALS: BP 98/83
[2021-01-08] MEDS ORDERED: docusate sod 250mg capsule PO SCH ×2 (20:00)
[2021-01-08] MEDS: DESMOPRESSIN ACETATE 0.1 MG TABLET PO SCH (20:58)
[2021-01-08] MEDS: docusate sod 250mg capsule PO SCH (20:58)
[2021-01-08] MEDS: clozapine 100mg tablet PO SCH (20:59)
--- NOTE | 2021-01-09 01:11 | NUR ---
Nursing Progress Note: Legal hold: TCon Client on involuntary status for GD Report received from nurse with use of SBAR: COLE Lunsford Why are they here: Clients mother contacted EMS because the client was not eating, drinking, or performing basic ADL's. Client refused to be transported to the ED by EMS. [employer] was notified and brought client to hospital. The client was agitated upon arrival to the ED, and received IM PRN Meds for agitation. Client is known to [facility] and has had prior admissions. Diagnosis/presenting symptoms: Schizophrenia, mood disorder, Meth use. Assessment What has happened this shift: Received pt. resting in bed at the beginning of the shift, he continued to isolate here throughout the shift, but did attend HS snack. 1:1 completed later at bedside, pt. was observed to be anxious and slightly agitated AEB responding aloud in a loud and agitated to manner to internal stimuli. He was able to be be verbally redirected, and PRN Ativan administered with effectiveness. This race and sports book writer provided active listening and positive encouragement, and questioned pt. regarding his upcoming court date. Pt. stated, "I know they want to conserve me and I don't think I deserve it." When further questioned by this race and sports book writer regarding his plans to provided food, clothing, and penitentiary for himself, pt. stated, "I've got all that," however he was unable to further elaborate on this. Pt. retreated to bed and appears to be resting comfortably, will continue to monitor. S/I, H/I: Denies A/VH: Pt. reports ongoing A/ABRAHAM, and V/ABRAHAM of "Pentecostalism Beings." Sleep: Pt. appeared to have difficulty falling asleep r/t ongoing A/ABRAHAM, PRN Ativan administered with effectiveness ADL's: Pt. requires some encouragement and direction Group attendance: N/A Were meds taken: Yes Any med S/E: None Mental Status Exam Appearance: Pt. continues to appear disheveled Eye contact: Good, intense at times Behavior: Cooperative, anxious, withdrawn, and actively responding to internal stimuli Speech: Hyperverbal and tangental Mood: Pleasant, however becomes anxious and agitated at times Affect: Labile Thought process: Tangental and disorganized Thought Content: Ongoing A/V/ABRAHAM and paranoid delusions Cognition: A&O X3 Insight: Poor Judgment: Poor Interventions PRN's used: Ativan Therapeutic interventions: Maintained a safe and supportive environment, ensured contract for safety, provided clear and simple instructions, attempted to orient to reality, provided active listening and positive encouragement, encouraged independent performance of ADLs, monitored behaviors and need for intervention, and maintained Q 15min safety checks. Restraints/seclusion/emergency medication: N/A Justification of Continued Inpatient Treatment: Per Dr. Deleon, pt. continues to exhibit psychotic s/s and mood lability, he requires medication adjustments and continues to require a safe and supportive environment.
[2021-01-09 07:36] VITALS: BP 122/70
[2021-01-09] MEDS: clozapine 25mg tablet PO SCH ×2 (07:42→20:26)
[2021-01-09] MEDS: docusate sod 250mg capsule PO SCH ×2 (07:42→20:26)
[2021-01-09] MEDS: NICOTINE POLACRILEX 2 MG LOZENGE BC PRN ×3 (07:44→15:33)
[2021-01-09] MEDS: nicotine 21mg patch - 24 hr TD SCH (07:45)
[2021-01-09] MEDS ORDERED: tuberculin, purif. prot. deriv. 5 units/0.1ml ID ONE (08:20)
[2021-01-09 09:22] LABS: BASOPHILS % (AUTO) 0.5 % (0-1); EOSINOPHILS % (AUTO) 0 % (0-6); HEMATOCRIT 43.2 % (42.0-52.0); HEMOGLOBIN 14.8 g/dl (14.0-17.9); LYMPHOCYTES # (AUTO) 0.9 X10'3 (1.1-4.8); LYMPHOCYTES % (AUTO) 9.6 % (21-51); MEAN CORPUSCULAR HEMOGLOBIN 31.5 PG (27.0-31.0); MEAN CORPUSCULAR HGB CONC 34.3 g/dL (33.0-36.5); MEAN CORPUSCULAR VOLUME 91.7 FL (78-98); MEAN PLATELET VOLUME 9.5 FL (7.4-10.4); MONOCYTES # (AUTO) 0.5 X10'3 (0-0.9); MONOCYTES % (AUTO) 5.4 % (2-12); NEUTROPHILS % (AUTO) 84.5 % (42-75); PLATELET COUNT 260 X10'3 (140-440); RED BLOOD COUNT 4.71 X10'6 (4.70-6.10); RED CELL DISTRIBUTION WIDTH 14.2 % (11.5-14.5); WHITE BLOOD COUNT 9.4 X10'3 (4.5-11.0)
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
--- NOTE | 2021-01-09 19:26 | NUR ---
Nursing Progress Note: Legal hold: TCon Client on involuntary status for GD Report received from nurse with use of SBAR: COLE Vitale Why are they here: Clients mother contacted EMS because the client was not eating, drinking, or performing basic ADL's. Client refused to be transported to the ED by EMS. [employer] was notified and brought client to hospital. The client was agitated upon arrival to the ED, and received IM PRN Meds for agitation. Client is known to [facility] and has had prior admissions. Diagnosis/presenting symptoms: Schizophrenia, mood disorder, Meth use. Assessment What has happened this shift: RN received pt. asleep in bed at start of shift. Pt. awoke before breakfast and took all medications. After breakfast pt. observed pacing hallway and talking to himself. Pt. is socially withdrawn. 1:1 done at bedside, pt. reports he is doing good but gives minimal information. Pt. reports his voices are quiet now. [employer] placed on pt.s left forearm. S/I, H/I: Denies A/VH: +AH but they are quiet and not bothering him. Sleep: Pt. slept 8.50hrs on NOC shift and did not appear to nap on day shift. ADL's: Pt. requires some encouragement and direction Group attendance: No Were meds taken: Yes Any med S/E: Denies Mental Status Exam Appearance: Disheveled but clean, wearing T-shirt and green scrub pants. Eye contact: Good, intense at times Behavior: Cooperative but anxious, pacing halls and talking to himself. Speech: Soft and rapid. Mood: Euthymic with some anxiety Affect: Congruent with mood. Thought process: Linear Thought Content: Circumstantial. Cognition: A&O X3 Insight: Poor Judgment: Poor Interventions PRN's used: None Therapeutic interventions: Introduced self and established rapport, maintained a safe and supportive environment, ensured contract for safety, provided clear and simple instructions, attempted to orient to reality, provided active listening and positive encouragement, encouraged independent performance of ADLs, and maintained Q 15min safety checks. Restraints/seclusion/emergency medication: N/A Justification of Continued Inpatient Treatment: Per Dr. Deleon, pt. continues to require medication adjustments and a safe and supportive environment.
[2021-01-09 19:30] VITALS: BP 127/79
[2021-01-09] MEDS: clozapine 100mg tablet PO SCH (20:26)
[2021-01-09] MEDS: DESMOPRESSIN ACETATE 0.1 MG TABLET PO SCH (20:27)
--- NOTE | 2021-01-10 01:57 | NUR ---
Nursing Progress Note: Legal hold: TCON Client on involuntary status for GD Report received from nurse with use of SBAR: COLE Vitale Why are they here: Clients mother contacted EMS because the client was not eating, drinking, or performing basic ADL's. Client refused to be transported to the ED by EMS. [employer] was notified and brought client to hospital. The client was agitated upon arrival to the ED, and received IM PRN Meds for agitation. Client is known to [facility] and has had prior admissions. Diagnosis/presenting symptoms: Schizophrenia, mood disorder, Meth use. Assessment What has happened this shift: Pt. finishing dinner in Community Room at beginning of shift. Afterward pt. requested Nicotine Lozenge and then paced hallway for a short time before lying down in his bed. Pt. received evening snack and took evening medications. Pt. continues to hear voices but reports that they are quieter. Pt.s nicotine patch removed and pt. went to sleep. S/I, H/I: Denies A/VH: +AH but they are quiet and not bothering him. Sleep: See sleep assessment. ADL's: Pt. requires some encouragement and direction Group attendance: NA Were meds taken: Yes Any med S/E: Nocturnal enuresis. Mental Status Exam Appearance: Disheveled but clean, wearing T-shirt and green scrub pants. Eye contact: Good, intense at times Behavior: Cooperative but anxious, pacing halls and talking to himself. Speech: Soft and rapid. Mood: Euthymic with moments of smiling but also some residual anxiety Affect: Congruent with mood. Thought process: Linear Thought Content: Circumstantial. Cognition: A&O X3 Insight: Poor Judgment: Poor Interventions PRN's used: Nicotine lozenge x1 Therapeutic interventions: Introduced self and established rapport, maintained a safe and supportive environment, ensured contract for safety, provided clear and simple instructions, attempted to orient to reality, provided active listening and positive encouragement, encouraged independent performance of ADLs, and maintained Q 15min safety checks. Restraints/seclusion/emergency medication: N/A Justification of Continued Inpatient Treatment: Per Dr. Deleon, pt. continues to require medication adjustments and a safe and supportive environment.
[2021-01-10] MEDS: clozapine 25mg tablet PO SCH (07:27)
[2021-01-10] MEDS: docusate sod 250mg capsule PO SCH ×2 (07:27→20:25)
[2021-01-10] MEDS: NICOTINE POLACRILEX 2 MG LOZENGE BC PRN ×5 (07:27→19:04)
[2021-01-10] MEDS: nicotine 21mg patch - 24 hr TD SCH (07:28)
[2021-01-10 07:32] VITALS: BP 116/70
[2021-01-10] MEDS: LORazepam 0.5 MG tablet PO PRN ×3 (09:23→20:26)
--- NOTE | 2021-01-10 14:44 | NUR ---
Nursing Progress Note: Legal hold: TCon Client on involuntary status for GD Report received from nurse with use of SBAR: COLE Vitale Why are they here: Clients mother contacted EMS because the client was not eating, drinking, or performing basic ADL's. Client refused to be transported to the ED by EMS. [facility] was notified and brought client to hospital. The client was agitated upon arrival to the ED, and received IM PRN Meds for agitation. Client is known to [facility] and has had prior admissions. Diagnosis/presenting symptoms: Schizophrenia, mood disorder, Meth use. Assessment What has happened this shift: Received pt. sleeping in bed at the beginning of the shift, he was awoken by staff to attend breakfast in the Group Room. Afterwards, pt. was observed to be pacing the hallway and appeared visually anxious and labile. When questioned by this technical report writer, pt. stated in a paranoid delusional way, "I'm getting upset about the TV guide and Vulcan." When questioned regarding any ongoing A/ABRAHAM, pt. stated, "The TV is still talking to me," he did not elaborate. Pt. accepted PRN Ativan with effectiveness, will continue to monitor. Pt. remained withdrawn from others throughout the day, no further s/s of lability exhibited. S/I, H/I: Denies A/VH: Pt. reports ongoing A/ABRAHAM, and some V/ABRAHAM Sleep: Sleep hours are 5.75, and pt. naps intermittently during the shift ADL's: Pt. requires some encouragement and direction Group attendance: N/A Were meds taken: Yes Any med S/E: None Mental Status Exam Appearance: Hair and clothing disheveled Eye contact: Good Behavior: Cooperative, anxious, agitated at times, and actively responding to internal stimuli Speech: Hyperverbal and tangental Mood: Pleasant, however becomes anxious and labile at times Affect: Labile Thought process: Poverty of thought, however becomes tangental at times Thought Content: Ongoing A/V/ABRAHAM and paranoid delusions Cognition: A&O X3 Insight: Poor Judgment: Poor Interventions PRN's used: Ativan Therapeutic interventions: Introduced self and established rapport, maintained a safe and supportive environment, ensured contract for safety, provided clear and simple instructions, attempted to orient to reality, provided active listening and positive encouragement, encouraged independent performance of ADLs, monitored behaviors and need for intervention, and maintained Q 15min safety checks. Restraints/seclusion/emergency medication: N/A Justification of Continued Inpatient Treatment: Per Dr. Deleon, pt. continues to exhibit ongoing A/ABRAHAM and requires medication adjustments and a safe and supportive environment. Addendum: 01/10/21 at 1640 by Diana Estrada RN Pt. again exhibited some increased anxiety/agitation in the afternoon AEB responding aloud to internal stimuli in agitated manner. PRN Ativan administered, will monitor.
[2021-01-10 19:48] VITALS: BP 109/63
[2021-01-10] MEDS: clozapine 100mg tablet PO SCH (20:25)
[2021-01-10] MEDS: DESMOPRESSIN ACETATE 0.1 MG TABLET PO SCH (20:25)
--- NOTE | 2021-01-11 01:10 | NUR ---
Nursing Progress Note: Legal hold: TCon Client on involuntary status for GD Report received from nurse with use of SBAR: Cristiano RN Why are they here: Clients mother contacted EMS because the client was not eating, drinking, or performing basic ADL's. Client refused to be transported to the ED by EMS. [facility] was notified and brought client to hospital. The client was agitated upon arrival to the ED, and received IM PRN Meds for agitation. Client is known to [facility] and has had prior admissions. Diagnosis/presenting symptoms: Schizophrenia, mood disorder, Meth use. Assessment What has happened this shift: Received pt. pacing in the hallway restlessly at the beginning of the shift. Later on, pt. presented as increasingly irritable and anxious and was actively responding to internal stimuli. Pt. stated, "F...ing, cock sucker, mother f...er!," and was observed by this group underwriter to be punching the air. He was redirected to his room by staff, however stated agitatedly, "I'm okay! I've got to finish this! I'll take it to as low volume as I can!" Shortly after, pt. emerged from his room and again began to pace the hallway responding to internal stimuli in an agitated manner. PRN Ativan was administered along with pt's HS medications with effectiveness. Pt. later apologized to this group underwriter and 1:1 completed at bedside. He reports ongoing A/ABRAHAM, and states in a tangental and disorganized manner, "The TV, sometimes they are mean to me and tease me. It's my MARILOU." Pt. continued on talking about his recurrent paranoid delusion that these A/ABRAHAM are trying to make him a homosexual. This group underwriter provided active listening and positive encouragement, and pt. reported contentment and thanked this group underwriter. S/I, H/I: Denies A/VH: Pt. reports ongoing A/ABRAHAM, and some V/ABRAHAM Sleep: Pt. appears to be sleeping well ADL's: Pt. requires some encouragement and direction Group attendance: N/A Were meds taken: Yes Any med S/E: None Mental Status Exam Appearance: Hair and clothing disheveled Eye contact: Good Behavior: Cooperative, anxious, irritable, and actively responding to internal stimuli Speech: Hyperverbal and tangental Mood: Irritable Affect: Labile Thought process: Poverty of thought, however becomes tangental at times Thought Content: Ongoing A/V/ABRAHAM and paranoid delusions Cognition: A&O X3 Insight: Poor Judgment: Poor Interventions PRN's used: Ativan Therapeutic interventions: Maintained a safe and supportive environment, ensured contract for safety, provided clear and simple instructions, attempted to orient to reality, provided active listening and positive encouragement, encouraged independent performance of ADLs, monitored behaviors and provided redirection as needed, and maintained Q 15min safety checks. Restraints/seclusion/emergency medication: N/A Justification of Continued Inpatient Treatment: Per Dr. Deleon, pt. continues to exhibit ongoing A/ABRAHAM and requires medication adjustments and a safe and supportive environment.
[2021-01-11 07:23] VITALS: BP 97/65
[2021-01-11] MEDS: NICOTINE POLACRILEX 2 MG LOZENGE BC PRN ×5 (07:56→19:48)
[2021-01-11] MEDS: clozapine 25mg tablet PO SCH ×2 (07:56→20:27)
[2021-01-11] MEDS: docusate sod 250mg capsule PO SCH ×2 (07:56→20:27)
[2021-01-11] MEDS: nicotine 21mg patch - 24 hr TD SCH (07:57)
--- NOTE | 2021-01-11 17:27 | NUR ---
Nursing Progress Note: Iam Conklin Legal Hold: T-Con Client on Involuntary status for GD Report received from COLE Quinonez with use of SBAR. Why they are here: Clients mother contacted EMS because the client was not eating, drinking, or performing basic ADL's. Client refused to be transported to the ED by EMS. [employer] was notified and brought client to hospital. The client was agitated upon arrival to the ED, and received IM PRN Meds for agitation. Client is known to [facility] and has had prior admissions. Diagnosis/presenting symptoms: Schizophrenia, mood disorder, Meth use. Assessment: What has happened this shift: Patient observed sleeping in bed at shift change. He was noted sitting in recreation room quietly by himself before breakfast. He approached this publicity writer asking for a PRN Nicotine lozenge. He joined in the community room with peers for breakfast. He was noted walking throughout the unit later in the morning. 1:1 assessment completed, lungs CTA. He is compliant with all medications. He continues to be polite, pleasant, and cooperative with care. This publicity writer approached patient in his room where he was noted to be talking to himself quietly under his breath. He denies SI and HI. He appears to be responding to internal stimuli, however, he denies AH or VH. He was observed sitting in the recreation room before lunch, quietly looking out the window. Pt noted requesting PRN Nicotine lozenges throughout the day. Patient was observed napping intermittently throughout the day. He participated in the community room with peers for all snacks and meals. SI/HI: Denies A/VH: Denies, however, appears to be responding to internal stimuli Sleep: Pt slept 8 hours last night per NOC shift, intermittent napping today ADL's: Independent Group attendance: No group provided today Were Meds taken: Yes Any med S/E: None noted or reported. Mental Status Exam: Appearance: Disheveled, wearing personal t-shirt and basketball shorts, scruffy cody. Eye contact: Good Behavior: Reserved, isolative, cooperative, responding to internal stimuli Speech: Clear, WNL Mood: Pleasant, quiet Affect: Labile Thought process: Linear, poverty of thought, internally preoccupied Thought Content: Nonsensical statements, ongoing internal stimuli Cognition: A&O X3 Insight: Poor Judgment: Poor Interventions: PRN's used: Nicotine lozenges Therapeutic interventions: Provided 1:1 assessment with therapeutic communication and active listening, medication administration/education/monitoring, encouragement of personal hygiene, encouragement to participate in unit activities, behavior monitoring and intervention as needed; reality orientation, Q15 minute safety checks. Restraints/seclusion/emergency medication: N/A Justification: Per Dr. Deleon, pt. continues to exhibit ongoing A/ABRAHAM and requires medication adjustments and a safe and supportive environment.
[2021-01-11 19:43] VITALS: BP 102/62
[2021-01-11] MEDS: clozapine 100mg tablet PO SCH (20:27)
[2021-01-11] MEDS: DESMOPRESSIN ACETATE 0.1 MG TABLET PO SCH (20:28)
--- NOTE | 2021-01-12 00:02 | NUR ---
Nursing Progress Note: Iam Conklin Legal Hold: T-Con Client on Involuntary status for GD Report received from COLE Lunsford with use of SBAR. Why they are here: Clients mother contacted EMS because the client was not eating, drinking, or performing basic ADL's. Client refused to be transported to the ED by EMS. [facility] was notified and brought client to hospital. The client was agitated upon arrival to the ED, and received IM PRN Meds for agitation. Client is known to [facility] and has had prior admissions. Diagnosis/presenting symptoms: Schizophrenia, mood disorder, Meth use. Assessment: What has happened this shift: Patient was up in the mccarthy talking to him self at shift change. he ate snack in group room was med compliant and stated that he is going to bed. SI/HI: Denies A/VH: Denies, however, appears to be responding to internal stimuli Sleep: See sleep assessment ADL's: Independent Group attendance: No group provided today Were Meds taken: Yes Any med S/E: None noted or reported. Mental Status Exam: Appearance: Disheveled, wearing personal t-shirt and basketball shorts, scruffy cody. Eye contact: Good Behavior: Reserved, isolative, cooperative, responding to internal stimuli Speech: Clear, WNL Mood: Pleasant, quiet Affect: Labile Thought process: Linear, poverty of thought, internally preoccupied Thought Content: Nonsensical statements, ongoing internal stimuli Cognition: A&O X3 Insight: Poor Judgment: Poor Interventions: PRN's used: Nicotine lozenges Therapeutic interventions: Provided 1:1 assessment with therapeutic communication and active listening, medication administration/education/monitoring, encouragement of personal hygiene, encouragement to participate in unit activities, behavior monitoring and intervention as needed; reality orientation, Q15 minute safety checks. Restraints/seclusion/emergency medication: N/A Justification: Per Dr. Deleon, pt. continues to exhibit ongoing A/ABRAHAM and requires medication adjustments and a safe and supportive environment.
[2021-01-12] MEDS: NICOTINE POLACRILEX 2 MG LOZENGE BC PRN ×5 (07:30→18:54)
[2021-01-12 07:44] VITALS: BP 96/57
[2021-01-12] MEDS ORDERED: clozapine 25mg tablet PO ONE (09:15)
[2021-01-12] MEDS: docusate sod 250mg capsule PO SCH ×2 (09:33→20:24)
[2021-01-12] MEDS: nicotine 21mg patch - 24 hr TD SCH (09:33)
[2021-01-12] MEDS: LORazepam 0.5 MG tablet PO PRN (09:41)
--- NOTE | 2021-01-12 17:38 | NUR ---
Nursing Progress Note: Iam Conklin Legal Hold: T-Con Client on Involuntary status for GD Report received from COLE Lin with use of SBAR. Why they are here: Clients mother contacted EMS because the client was not eating, drinking, or performing basic ADL's. Client refused to be transported to the ED by EMS. [employer] was notified and brought client to hospital. The client was agitated upon arrival to the ED, and received IM PRN Meds for agitation. Client is known to [facility] and has had prior admissions. Diagnosis/presenting symptoms: Schizophrenia, mood disorder, Meth use. Assessment: What has happened this shift: Patient was noted walking around the unit at change of shift. He approached this scenario writer first thing in the morning before breakfast requesting a PRN Nicotine lozenge. He joined in the community room for breakfast with peers, noted sitting quietly. He retreated back to room after breakfast, noted sleeping for a short period of time. 1:1 assessment completed, lungs CTA. Patient endorsed that he is feeling fine this morning. He is compliant with all medications. He was observed walking around and talking to himself later in the morning, stating, They are doing this on purpose, see that burn spot on there, god is doing this! He was noted talking to himself, aggressively flicking his hands into the air. Patient was given PRN Ativan 0.5mg at approximately 0940 with effectiveness. He continues to present as polite, guarded, and cooperative with care. He denies SI/HI and VH. He endorsed to this scenario writer that he is hearing good voices and they are not bothering him. He stated that he is anxious about his placement and wants to go to a board and care when he leaves this facility. He was observed napping intermittently throughout the day. Patient did not participate in group therapy today despite encouragement. He walked through the unit, noted sitting in the recreation room looking out the window periodically. He rarely socializes with staff or other peers on the unit. Pt noted requesting PRN Nicotine lozenges throughout the day. He participated in the community room with peers for all snacks and meals. SI/HI: Denies A/VH: Responding to internal stimuli, hearing good voices Sleep: Pt slept 8.75 hours last night per NOC shift, intermittent napping throughout the day ADL's: Independent Group attendance: No Were Meds taken: Yes Any med S/E: None noted or reported. Mental Status Exam: Appearance: Disheveled, wearing personal t-shirt and basketball shorts, scruffy cody. Eye contact: Good Behavior: Reserved, isolative, cooperative, responding to internal stimuli Speech: Clear, WNL Mood: Pleasant, quiet Affect: Labile Thought process: Linear, poverty of thought, internally preoccupied Thought Content: Nonsensical statements, ongoing internal stimuli Cognition: A&O X3 Insight: Poor Judgment: Poor Interventions: PRN's used: Nicotine lozenges, PRN Ativan 0.5mg PO Therapeutic interventions: Provided 1:1 assessment with therapeutic communication and active listening, medication administration/education/monitoring, encouragement of personal hygiene, encouragement to participate in unit activities, behavior monitoring and intervention as needed; reality orientation, Q15 minute safety checks. Restraints/seclusion/emergency medication: N/A Justification: Per Dr. Deleon, It appears that his severe mood lability irritability seems to be somewhat better, he again seems to be very focused on going to independent housing rather than an IMD, at this point I am currently unsure if he would be able to do well in a completely independent setting. Encourage patient to participate in milieu therapy group therapy sessions.
[2021-01-12 20:12] VITALS: BP 101/58
[2021-01-12] MEDS: DESMOPRESSIN ACETATE 0.1 MG TABLET PO SCH (20:24)
[2021-01-12] MEDS: clozapine 100mg tablet PO SCH (20:25)
--- NOTE | 2021-01-13 01:01 | NUR ---
Nursing Progress Note: Iam Conklin Legal Hold: T-Con Client on Involuntary status for GD Report received from COLE Lunsford with use of SBAR. Why they are here: Clients mother contacted EMS because the client was not eating, drinking, or performing basic ADL's. Client refused to be transported to the ED by EMS. [facility] was notified and brought client to hospital. The client was agitated upon arrival to the ED, and received IM PRN Meds for agitation. Client is known to [facility] and has had prior admissions. Diagnosis/presenting symptoms: Schizophrenia, mood disorder, Meth use. Assessment: What has happened this shift: Patient was noted walking around the unit at change of shift. He talks to him self when pacing. Pt asked for a Nicotine Lozenge was med compliant at snack in group room befor going to bed. SI/HI: Denies A/VH: Responding to internal stimuli, hearing good voices Sleep: See sleep assessment ADL's: Independent Group attendance: No Were Meds taken: Yes Any med S/E: None noted or reported. Mental Status Exam: Appearance: Disheveled, wearing personal t-shirt and basketball shorts, scruffy cody. Eye contact: Good Behavior: Reserved, isolative, cooperative, responding to internal stimuli Speech: Clear, WNL Mood: Pleasant, quiet Affect: Labile Thought process: Linear, poverty of thought, internally preoccupied Thought Content: Nonsensical statements, ongoing internal stimuli Cognition: A&O X3 Insight: Poor Judgment: Poor Interventions: PRN's used: Nicotine lozenges Therapeutic interventions: Provided 1:1 assessment with therapeutic communication and active listening, medication administration/education/monitoring, encouragement of personal hygiene, encouragement to participate in unit activities, behavior monitoring and intervention as needed; reality orientation, Q15 minute safety checks. Restraints/seclusion/emergency medication: N/A Justification: Per Dr. Deleon, It appears that his severe mood lability irritability seems to be somewhat better, he again seems to be very focused on going to independent housing rather than an IMD, at this point I am currently unsure if he would be able to do well in a completely independent setting. Encourage patient to participate in milieu therapy group therapy sessions.
[2021-01-13] MEDS: NICOTINE POLACRILEX 2 MG LOZENGE BC PRN ×5 (07:32→20:38)
[2021-01-13] MEDS: clozapine 100mg tablet PO SCH ×2 (07:32→20:34)
[2021-01-13] MEDS: docusate sod 250mg capsule PO SCH ×2 (07:32→20:36)
[2021-01-13] MEDS: nicotine 21mg patch - 24 hr TD SCH (07:34)
[2021-01-13 07:53] VITALS: BP 127/77
--- NOTE | 2021-01-13 15:15 | NUR ---
Pt. attended group today. We talked about hearing voices again continues to read an article about coping strategies. We discussed what coping strategies they had success with in the past and what was one new coping strategy they would like to try. Pt. engaged in the group discussion and activity well. He shared with the group when asked what coping skill he would like to work on and was positive that this was helpful to be in the group. He listened well to this Medical Coordinator Pesticide Use and his peers. He stayed for the entirety of the group. He was alert and oriented X 4. Pt. shared his thoughts appropriately with the group and was mindful of others. Jennifer Chu LCSW
--- NOTE | 2021-01-13 17:41 | NUR ---
Nursing Progress Note: Iam Conklin Legal Hold: T-Con Client on Involuntary status for GD Report received from COLE Mackenzie with use of SBAR. Why they are here: Clients mother contacted EMS because the client was not eating, drinking, or performing basic ADL's. Client refused to be transported to the ED by EMS. [facility] was notified and brought client to hospital. The client was agitated upon arrival to the ED, and received IM PRN Meds for agitation. Client is known to [facility] and has had prior admissions. Diagnosis/presenting symptoms: Schizophrenia, mood disorder, Meth use. Assessment: What has happened this shift: He participated in art therapy today and was observed engaging in the group activities with peers and drawing a picture of a broken heart. Patient was noted walking around the unit at shift change. This group underwriter approached patient, asking how he was doing this morning. He continues to present as polite, appropriate, slightly guarded, and cooperative with care. Patient asked this group underwriter for a PRN Nicotine lozenge before breakfast. He joined in the community room with peers for breakfast. 1:1 assessment completed, lungs CTA. He joined with peers in group therapy today, noted interacting appropriately when asked direct questions. Patient encouraged to take a shower today before his court hearing. Patient required convincing before agreeing to take a shower. He was dressed in clean clothing with clean linen applied to his bed. Patient left for court at approximately 1245, picked up by transportation analyst. He returned from court approximately one hour later and was noted stating that the [employer] is going to conserve him. Patient endorsed that he is not upset with the decision but is anxious about where he will be placed. He is compliant with all medications. Patient was noted to be much more active and engaging on the unit today than previously. He denies SI/HI and VH. He appears to be responding to auditory hallucinations throughout the day, noted talking to himself quietly making nonsensical statements. He was noted walking through the unit throughout the day. He rarely socializes with staff or other peers on the unit. Pt noted requesting PRN Nicotine lozenges throughout the day. He participated in the community room with peers for all snacks and meals. SI/HI: Denies A/VH: Responding to internal stimuli, auditory hallucinations Sleep: Pt slept 5.5 hours last night per NOC shift, no naps noted today ADL's: Independent Group attendance: Yes Were Meds taken: Yes Any med S/E: None noted or reported. Mental Status Exam: Appearance: Clean, took a shower on this shift, wearing red t-shirt and basketball shorts, scruffy cody. Eye contact: Good Behavior: Reserved, isolative, cooperative, responding to internal stimuli Speech: Clear, WNL Mood: Pleasant, quiet Affect: Labile Thought process: Linear, poverty of thought, internally preoccupied Thought Content: Nonsensical statements, ongoing internal stimuli Cognition: A&O X3 Insight: Poor Judgment: Poor Interventions: PRN's used: Nicotine lozenges Therapeutic interventions: Provided 1:1 assessment with therapeutic communication and active listening, medication administration/education/monitoring, encouragement of personal hygiene, encouragement to participate in unit activities, behavior monitoring and intervention as needed; reality orientation, Q15 minute safety checks. Restraints/seclusion/emergency medication: N/A Justification: Patient continues to require further medication adjustment and monitoring in this controlled environment for the achievement of stabilization to ensure a safe discharge. Per Dr. Deleon, he is still a high risk for discharge because of persisting psychotic symptoms he does not also appear to have any viable discharge plan, including that he is homeless, and he cannot describe any means of finding himself safe housing, and follow-up with outpatient treatment plan. This patient will be attending court for conservatorship.
[2021-01-13] MEDS: LORazepam 0.5 MG tablet PO PRN (18:56)
[2021-01-13 19:13] VITALS: BP 114/63
[2021-01-13] MEDS: DESMOPRESSIN ACETATE 0.1 MG TABLET PO SCH (20:35)
[2021-01-13] MEDS ORDERED: DESMOPRESSIN ACETATE 0.1 MG TABLET PO ONE (20:40)
--- NOTE | 2021-01-14 02:26 | NUR ---
Nursing Progress Note: Iam Conklin Legal Hold: [facility] Client on Involuntary status for GD Report received from COLE Lunsford with use of SBAR. Why they are here: Clients mother contacted EMS because the client was not eating, drinking, or performing basic ADL's. Client refused to be transported to the ED by EMS. [facility] was notified and brought client to hospital. The client was agitated upon arrival to the ED, and received IM PRN Meds for agitation. Client is known to [facility] and has had prior admissions. Diagnosis/presenting symptoms: Schizophrenia, mood disorder, Meth use. Assessment: What has happened this shift: Patient was agitated with voices in his head. Patient kept yelling as he paced up and down the hallway. Patient continued to get cooker loader yelling that the voices were lying to him and trying to trick him. Patient was given PRN lorazepam to help with agitation. Patient took all scheduled medications and some PRN nicotine lozenges. Patient went to sleep around 2100 and had no difficulty sleeping. SI/HI: Denies A/VH: Responding to internal stimuli, hearing argumentative voices Sleep: See sleep assessment ADL's: Independent Group attendance: No Were Meds taken: Yes Any med S/E: None noted or reported. Mental Status Exam: Appearance: Disheveled, wearing personal t-shirt and basketball shorts, scruffy cody. Eye contact: Good Behavior: Reserved, isolative, cooperative, responding to internal stimuli Speech: Clear, WNL Mood: Pleasant Affect: Labile Thought process: Linear, poverty of thought, internally preoccupied Thought Content: Nonsensical statements, ongoing internal stimuli Cognition: A&O X3 Insight: Poor Judgment: Poor Interventions: PRN's used: Nicotine lozenges and lorazepam Therapeutic interventions: Provided 1:1 assessment with therapeutic communication and active listening, medication administration/education/monitoring, encouragement of personal hygiene, encouragement to participate in unit activities, behavior monitoring and intervention as needed; reality orientation, Q15 minute safety checks. Restraints/seclusion/emergency medication: N/A Justification: Per Dr. Deleon, It appears that his severe mood lability irritability seems to be somewhat better, he again seems to be very focused on going to independent housing rather than an IMD, at this point I am currently unsure if he would be able to do well in a completely independent setting. Encourage patient to participate in milieu therapy group therapy sessions.
[2021-01-14] MEDS: clozapine 100mg tablet PO SCH ×2 (07:46→20:18)
[2021-01-14] MEDS: docusate sod 250mg capsule PO SCH ×2 (07:46→20:18)
[2021-01-14] MEDS: NICOTINE POLACRILEX 2 MG LOZENGE BC PRN ×4 (07:46→17:19)
[2021-01-14 07:48] VITALS: BP 128/70
[2021-01-14] MEDS: nicotine 21mg patch - 24 hr TD SCH (07:48)
[2021-01-14] MEDS ORDERED: DESM0.1T PO ×2 (16:58)
[2021-01-14] MEDS ORDERED: CLOZ100T13 PO ×2 (16:58)
--- NOTE | 2021-01-14 17:53 | NUR ---
Nursing Progress Note: Legal hold: [facility] Client on involuntary status for GD Report received from nurse with use of SBAR: COLE Mackenzie Why are they here: Clients mother contacted EMS because the client was not eating, drinking, or performing basic ADL's. Client refused to be transported to the ED by EMS. [facility] was notified and brought client to hospital. The client was agitated upon arrival to the ED, and received IM PRN Meds for agitation. Client is known to [facility] and has had prior admissions. Diagnosis/presenting symptoms: Schizophrenia, mood disorder, Meth use. Assessment What has happened this shift: RN received pt. asleep in bed at start of shift. Pt. awoke before breakfast and took all medications. Pt. observed looking out the window in the Rec room and talking to himself in the AM. Pt. attended group. Pt. is socially withdrawn. 1:1 done in Rec room. Pt. reports he is good but gives minimal information. S/I, H/I: Denies A/VH: Denies Sleep: Pt. slept 8hrs on NOC shift and napped approx. 1 hr on day shift. ADL's: Independent Group attendance: Yes Were meds taken: Yes Any med S/E: Denies Mental Status Exam Appearance: Disheveled but clean, wearing casual attire. Eye contact: Good, intense at times Behavior: Cooperative, socially withdrawn, and isolates to his room or REC room. Speech: Soft and rapid. Mood: Euthymic with some anxiety Affect: Congruent with mood. Thought process: Linear Thought Content: Circumstantial. Cognition: A&O X3 Insight: Poor Judgment: Poor Interventions PRN's used: Nicotine Therapeutic interventions: Introduced self and established rapport, maintained a safe and supportive environment, ensured contract for safety, provided clear and simple instructions, attempted to orient to reality, provided active listening and positive encouragement, encouraged independent performance of ADLs, and maintained Q 15min safety checks. Restraints/seclusion/emergency medication: N/A Justification of Continued Inpatient Treatment: Per Dr. Deleon, pt. continues to require medication adjustments and a safe and supportive environment.
[2021-01-14 19:25] VITALS: BP 115/74
[2021-01-14] MEDS: DESMOPRESSIN ACETATE 0.1 MG TABLET PO SCH (20:19)
--- NOTE | 2021-01-15 04:45 | NUR ---
Nursing Progress Note: Legal Hold: [facility] Client on Involuntary status for GD Report received from COLE Lunsford with use of SBAR. Why they are here: Clients mother contacted EMS because the client was not eating, drinking, or performing basic ADL's. Client refused to be transported to the ED by EMS. [facility] was notified and brought client to hospital. The client was agitated upon arrival to the ED, and received IM PRN Meds for agitation. Client is known to [facility] and has had prior admissions. Diagnosis/presenting symptoms: Schizophrenia, mood disorder, Meth use. Assessment: What has happened this shift: Patient was social with staff and other patients. Patient kept walking up and down hallway talking to internal voices. Patient became angry with vocies and started to yell but was able to resolve on his own. Patient took all medications and then went to sleep. SI/HI: Denies A/VH: Responding to internal stimuli, hearing argumentative voices Sleep: See sleep assessment ADL's: Independent Group attendance: No Were Meds taken: Yes Any med S/E: None noted or reported. Mental Status Exam: Appearance: Disheveled, wearing personal t-shirt and basketball shorts, scruffy cody. Eye contact: Good Behavior: Reserved, isolative, cooperative, responding to internal stimuli Speech: Clear, WNL Mood: Pleasant Affect: Labile Thought process: Linear, poverty of thought, internally preoccupied Thought Content: Nonsensical statements, ongoing internal stimuli Cognition: A&O X3 Insight: Poor Judgment: Poor Interventions: PRN's used: none Therapeutic interventions: Provided 1:1 assessment with therapeutic communication and active listening, medication administration/education/monitoring, encouragement of personal hygiene, encouragement to participate in unit activities, behavior monitoring and intervention as needed; reality orientation, Q15 minute safety checks. Restraints/seclusion/emergency medication: N/A Justification: Per Dr. Deleon, It appears that his severe mood lability irritability seems to be somewhat better, he again seems to be very focused on going to independent housing rather than an IMD, at this point I am currently unsure if he would be able to do well in a completely independent setting. Encourage patient to participate in milieu therapy group therapy sessions.
[2021-01-15] MEDS ORDERED: NICO-687 TD (07:48)
[2021-01-15] MEDS: docusate sod 250mg capsule PO SCH ×2 (07:53→20:23)
[2021-01-15] MEDS: nicotine 21mg patch - 24 hr TD SCH (07:53)
[2021-01-15] MEDS: clozapine 100mg tablet PO SCH ×2 (07:53→20:23)
[2021-01-15 08:00] VITALS: BP 111/64
--- NOTE | 2021-01-15 08:39 | NUR ---
Today we talked about the definition or resiliency, the ways to build resiliency and how to bounce back. We also discussed having Hope and where their hope levels were today. Pt. came into group late but was able to jump right in and engage in the discussion. He shared appropriately with the group when asked and was able to listen to others well. This Senior Adults Director did observe him talking to himself a few times during the group. His demeanor was pleasant and calm. CHRIS CrenshawW
[2021-01-15] MEDS: LORazepam 0.5 MG tablet PO PRN ×2 (08:59→20:44)
[2021-01-15 09:20] LABS: BASOPHILS % (AUTO) 0.5 % (0-1); EOSINOPHILS % (AUTO) 0 % (0-6); HEMATOCRIT 42.6 % (42.0-52.0); HEMOGLOBIN 14.7 g/dl (14.0-17.9); LYMPHOCYTES # (AUTO) 1.1 X10'3 (1.1-4.8); LYMPHOCYTES % (AUTO) 14.5 % (21-51); MEAN CORPUSCULAR HEMOGLOBIN 31.3 PG (27.0-31.0); MEAN CORPUSCULAR HGB CONC 34.6 g/dL (33.0-36.5); MEAN CORPUSCULAR VOLUME 90.6 FL (78-98); MEAN PLATELET VOLUME 9.2 FL (7.4-10.4); MONOCYTES # (AUTO) 0.5 X10'3 (0-0.9); MONOCYTES % (AUTO) 6.8 % (2-12); NEUTROPHILS # (AUTO) 5.9 X10'3 (1.8-7.7); NEUTROPHILS % (AUTO) 78.2 % (42-75); PLATELET COUNT 276 X10'3 (140-440); RED CELL DISTRIBUTION WIDTH 14.2 % (11.5-14.5); WHITE BLOOD COUNT 7.5 X10'3 (4.5-11.0)
[2021-01-15] MEDS: NICOTINE POLACRILEX 2 MG LOZENGE BC PRN ×3 (11:27→19:16)
--- NOTE | 2021-01-15 12:19 | NUR ---
Reassessment: Pt continues eating well with mostly 100% PO intake of meals on regular diet meeting estimated nutrient needs. [facility] 01/15, receiving routine bowel care. No nutrition intervention implemented at this time. Will continue to follow. Recs: 1. Continue regular diet 2. Routine bowel care 3. Weekly scaled weights Addendum: 01/15/21 at [address] Amended: Links added.
--- NOTE | 2021-01-15 12:27 | NUR ---
DISCHARGE PLAN Iam has been accepted at [facility] and will transfer there tomorrow. TESSY Slade
--- NOTE | 2021-01-15 16:14 | NUR ---
Nursing Progress Note: Legal hold: LPS Client on involuntary status for GD Report received from nurse with use of SBAR: COLE Mackenzie Why are they here: Clients mother contacted EMS because the client was not eating, drinking, or performing basic ADL's. Client refused to be transported to the ED by EMS. [employer] was notified and brought client to hospital. The client was agitated upon arrival to the ED, and received IM PRN Meds for agitation. Client is known to [facility] and has had prior admissions. Diagnosis/presenting symptoms: Schizophrenia, mood disorder, Meth use. Assessment What has happened this shift: Received pt. sleeping in bed at the beginning of the shift, he was awoken by staff to attend breakfast in the Group Room. Afterwards, pt. was observed to be up in the Recreation Room talking aloud to himself and the TV in a pleasant manner. Pt. stated, "Are you at [facility]? Did you leave the book there" He greeted this marketing underwriter animatedly, and reported he will be discharging to [facility]. This marketing underwriter attempted to complete 1:1, however pt. continues to be guarded when discussing any MH s/s, however he does reluctantly admit to ongoing A/ABRAHAM. Pt. states, "They are good." He denies any further V/ABRAHAM. Later, at approximately 0900, pt. exhibited agitation AEB yelling loudly in his room at internal stimuli. Pt. yelled, "Inject them all with Cyanide!" He was redirected and administered PRN Ativan with effectiveness. Pt. remained up throughout the day, he continues to remain withdrawn from others, no further agitated outbursts exhibited. Results of pt's CBC endorsed to Dr. Deleon, no new orders obtained. S/I, H/I: Denies A/VH: Pt. reports ongoing A/ABRAHAM Sleep: Sleep hours are 6.5, and pt. naps intermittently during the shift ADL's: Pt. requires some encouragement and direction Group attendance: Pt. attended part of afternoon group with encouragement from staff Were meds taken: Yes Any med S/E: None Mental Status Exam Appearance: Hair and clothing disheveled Eye contact: Good Behavior: Cooperative, anxious, agitated at times, and actively responding to internal stimuli Speech: Tangental Mood: Pleasant, however becomes anxious and labile at times Affect: Labile Thought process: Linear, but becomes disorganized with continued conversation Thought Content: Ongoing A/ABRAHAM Cognition: A&O X3 Insight: Poor Judgment: Poor Interventions PRN's used: Ativan Therapeutic interventions: Maintained a safe and supportive environment, ensured contract for safety, provided clear and simple instructions, attempted to orient to reality, encouraged independent performance of ADLs, monitored behaviors and need for intervention, and maintained Q 15min safety checks. Restraints/seclusion/emergency medication: N/A Justification of Continued Inpatient Treatment: Per Dr. Deleon, pt. continues to be gravely disabled and requires a safe and supportive environment. He will discharge to an IMD tomorrow.
[2021-01-15 19:00] VITALS: BP 124/76
[2021-01-15] MEDS: DESMOPRESSIN ACETATE 0.1 MG TABLET PO SCH (20:23)
[2021-01-15] MEDS ORDERED: LORazepam 1 MG tablet PO ONE (20:55)
--- NOTE | 2021-01-16 00:02 | NUR ---
Nursing Progress Note: Legal hold: LPS Client on involuntary status for GD Report received from nurse with use of SBAR: COLE Vitale Why are they here: Clients mother contacted EMS because the client was not eating, drinking, or performing basic ADL's. Client refused to be transported to the ED by EMS. [employer] was notified and brought client to hospital. The client was agitated upon arrival to the ED, and received IM PRN Meds for agitation. Client is known to [facility] and has had prior admissions. Diagnosis/presenting symptoms: Schizophrenia, mood disorder, Meth use. Assessment What has happened this shift: Patient pacing the unit and responding to IS at the beginning of shift. Pleasant and cooperative with care; compliant with medication. Nicotine patch removed/discarded by insurance underwriter. PRN Ativan provided when patient became elevated; positive effects obtained. Patient denies SI, HI and continues to respond to IS. Patient participated in HS snack prior to bed; observed sleeping and does not appear to be having difficulty. S/I, H/I: Denies A/VH: Responding to IS Sleep: Refer to sleep assessment ADL's: Independent Group attendance: NA Were meds taken: Yes Any med S/E: None observed or reported Mental Status Exam Appearance: Disheveled; wearing green unit attire and sweater. Eye contact: Good Behavior: Pleasant and cooperative, impulsive as he responds to IS, pacing the unit Speech: Clear, audible Mood: Anxious Affect: Congruent to mood Thought process: Disorganized Thought Content: Meeting needs, IS Cognition: A&O X3 Insight: Poor Judgment: Poor Interventions PRN's used: Ativan Therapeutic interventions: Maintained a safe and supportive environment, ensured contract for safety, provided clear and simple instructions, attempted to orient to reality, encouraged independent performance of ADLs, monitored behaviors and need for intervention, and maintained Q 15min safety checks. Restraints/seclusion/emergency medication: N/A Justification of Continued Inpatient Treatment: Per Dr. Deleon, pt. continues to be gravely disabled and requires a safe and supportive environment. He will discharge to an IMD tomorrow.
--- NOTE | 2021-01-16 07:24 | NUR ---
DISCHARGE PLAN UPDATE Spoke to Dr Deleon regarding Iam's outburst yesterday and he suggested increasing clozaril over the weekend and see if [facility] can take him early next week. Called [facility] office and requested to hold off on discharge today. They will get in contact with [facility] to see if they will hold the bed. TESSY Slade
[2021-01-16] MEDS: clozapine 100mg tablet PO SCH ×2 (07:32→20:27)
[2021-01-16] MEDS: docusate sod 250mg capsule PO SCH ×2 (07:32→20:28)
[2021-01-16] MEDS: nicotine 21mg patch - 24 hr TD SCH (07:33)
[2021-01-16] MEDS: NICOTINE POLACRILEX 2 MG LOZENGE BC PRN ×5 (07:48→19:22)
[2021-01-16 08:00] VITALS: BP 98/71
--- NOTE | 2021-01-16 16:29 | NUR ---
Nursing Progress Note: Legal hold: LPS Client on involuntary status for GD Report received from nurse with use of SBAR: Jeannie De Guzman RN Why are they here: Clients mother contacted EMS because the client was not eating, drinking, or performing basic ADL's. Client refused to be transported to the ED by EMS. [employer] was notified and brought client to hospital. The client was agitated upon arrival to the ED, and received IM PRN Meds for agitation. Client is known to [facility] and has had prior admissions. Diagnosis/presenting symptoms: Schizophrenia, mood disorder, Meth use. Assessment What has happened this shift: Received pt. sleeping in bed at the beginning of the shift, he awoke and attended breakfast in the Group Room. Pt. presented with disheveled hair and clothing, and he consented to taking a shower with much encouragement from this writer technical publications. Pt. also admits to another episode of incontinence last night. Pt. was observed to be pacing in the hallway responding aloud to internal stimulation throughout the day, however he did not exhibit any agitated outbursts. When questioned regarding his A/ABRAHAM, he states, "They are good today." Pt's discharge to [facility] was postponed until Tuesday r/t his increased psychosis (see previous note), he will continue to be monitored. S/I, H/I: Denies A/VH: Pt. reports ongoing A/ABRAHAM Sleep: Sleep hours are 7.25, and pt. naps intermittently during the shift ADL's: Pt. requires some encouragement and direction Group attendance: No Were meds taken: Yes Any med S/E: None Mental Status Exam Appearance: Hair and clothing disheveled, however pt. did shower today with encouragement Eye contact: Good Behavior: Cooperative, restless, guarded, and actively responding to internal stimuli Speech: Tangental Mood: Pleasant, however restless Affect: Labile Thought process: Linear, but becomes disorganized with continued conversation Thought Content: Ongoing A/ABRAHAM Cognition: A&O X3 Insight: Poor Judgment: Poor Interventions PRN's used: None Therapeutic interventions: Maintained a safe and supportive environment, ensured contract for safety, provided clear and simple instructions, attempted to orient to reality, encouraged independent performance of ADLs, monitored behaviors and need for intervention, and maintained Q 15min safety checks. Restraints/seclusion/emergency medication: N/A Justification of Continued Inpatient Treatment: Per Dr. Deleon, pt. continues to be gravely disabled and requires a safe and supportive environment. He will discharge to an IMD.
[2021-01-16 19:00] VITALS: BP 116/74
[2021-01-16] MEDS: clozapine 25mg tablet PO SCH (20:27)
[2021-01-16] MEDS: LORazepam 0.5 MG tablet PO PRN (20:27)
[2021-01-16] MEDS ORDERED: DESMOPRESSIN ACETATE 0.1 MG TABLET PO SCH (21:00)
--- NOTE | 2021-01-17 01:27 | NUR ---
Nursing Progress Note: Legal hold: LPS Client on involuntary status for GD Report received from nurse with use of SBAR: COLE Ortiz Why are they here: Clients mother contacted EMS because the client was not eating, drinking, or performing basic ADL's. Client refused to be transported to the ED by EMS. [employer] was notified and brought client to hospital. The client was agitated upon arrival to the ED, and received IM PRN Meds for agitation. Client is known to [facility] and has had prior admissions. Diagnosis/presenting symptoms: Schizophrenia, mood disorder, Meth use. Assessment What has happened this shift: Patient pacing the unit at the beginning of shift. Pleasant and cooperative with care; compliant with all medication. PRN Ativan and Nicotine lozenge provided this shift. Nicotine patch removed/discarded by travel writer. Patient continues to respond to IS and periodically escalates d/t disagreeing with the voices. Patient participated in HS snack prior to bed; observed sleeping and does not appear to be having difficulty. S/I, H/I: Denies A/VH: Responding to IS Sleep: Refer to sleep assessment ADL's: Independent Group attendance: NA Were meds taken: Yes Any med S/E: None observed or reported Mental Status Exam Appearance: Disheveled; wearing green unit attire and sweater. Eye contact: Good Behavior: Pleasant and cooperative, impulsive as he responds to IS, pacing the unit Speech: Clear, audible Mood: Anxious Affect: Congruent to mood Thought process: Disorganized Thought Content: Meeting needs, IS Cognition: A&O X3 Insight: Poor Judgment: Poor Interventions PRN's used: Ativan and Nicotine lozenge Therapeutic interventions: Maintained a safe and supportive environment, ensured contract for safety, provided clear and simple instructions, attempted to orient to reality, encouraged independent performance of ADLs, monitored behaviors and need for intervention, and maintained Q 15min safety checks. Restraints/seclusion/emergency medication: N/A Justification of Continued Inpatient Treatment: Per Dr. Deleon, pt. continues to be gravely disabled and requires a safe and supportive environment. He will discharge to an IMD tomorrow.
[2021-01-17] MEDS: clozapine 100mg tablet PO SCH ×2 (07:38→20:51)
[2021-01-17] MEDS: docusate sod 250mg capsule PO SCH ×2 (07:38→20:51)
[2021-01-17] MEDS: LORazepam 0.5 MG tablet PO PRN ×2 (07:38→16:15)
[2021-01-17] MEDS: nicotine 21mg patch - 24 hr TD SCH (07:39)
[2021-01-17 08:00] VITALS: BP 95/58
[2021-01-17] MEDS: NICOTINE POLACRILEX 2 MG LOZENGE BC PRN ×3 (08:19→16:15)
--- NOTE | 2021-01-17 15:48 | NUR ---
Nursing Progress Note: Legal hold: LPS Client on involuntary status for GD Report received from nurse with use of SBAR: Jeannie De Guzman RN Why are they here: Clients mother contacted EMS because the client was not eating, drinking, or performing basic ADL's. Client refused to be transported to the ED by EMS. [facility] was notified and brought client to hospital. The client was agitated upon arrival to the ED, and received IM PRN Meds for agitation. Client is known to [facility] and has had prior admissions. Diagnosis/presenting symptoms: Schizophrenia, mood disorder, Meth use. Assessment What has happened this shift: Received pt. sleeping in bed at the beginning of the shift, he awoke and attended breakfast in the Group Room. Afterwards, pt. was observed to be in the Recreation Room responding loudly to internal stimulation in an agitated manner directed towards the television. Pt. yelled out in a disorganized manner, "I'm tired of interacting with the miniature minions!" This field underwriter was able to provide redirection to pt., and he accepted PRN Ativan with effectiveness. Attempted to complete 1:1, however pt. continues to deny any other MH s/s, and remains guarded with discussing his ongoing A/ABRAHAM. He was later observed to be talking aloud in a pleasant manner to the wall while standing in the hallway. Pt. remained up throughout the day, and attended groups with encouragement from staff. When attending the [employer], hosted by the [employer] students, he was observed to be smiling widely and sitting close to the music speaker. Pt. appeared to really enjoy and respond well to music and requested 70's rock. S/I, H/I: Denies A/VH: Pt. reports ongoing A/ABRAHAM Sleep: Sleep hours are 8.5, and pt. reports he slept well ADL's: Pt. requires some encouragement and direction Group attendance: Yes Were meds taken: Yes Any med S/E: None Mental Status Exam Appearance: Hair and clothing continue to be disheveled Eye contact: Good Behavior: Cooperative, restless, guarded, and actively responding to internal stimuli Speech: Tangental Mood: Pleasant, however restless Affect: Labile Thought process: Linear, but becomes disorganized with continued conversation Thought Content: Ongoing A/ABRAHAM and some paranoid delusions Cognition: A&O X3 Insight: Poor Judgment: Poor Interventions PRN's used: None Therapeutic interventions: Maintained a safe and supportive environment, ensured contract for safety, provided clear and simple instructions, attempted to orient to reality, encouraged independent performance of ADLs, monitored behaviors and need for intervention, and maintained Q 15min safety checks. Restraints/seclusion/emergency medication: N/A Justification of Continued Inpatient Treatment: Per GENE Post, pt. continues to require medication adjustments and a safe and therapeutic environment. He will discharge to an IMD. Addendum: 01/17/21 at 1619 by Diana Estrada RN Pt. again exhibited increased agitation in the afternoon AEB pacing in the hallway, talking aloud in an agitated manner, and occasionally yelling out profanities. This field underwriter approached him and provided therapeutic communication. Pt. reported, "The voices are bad," but would not elaborate. PRN Ativan administered and will continue to monitor.
[2021-01-17 19:00] VITALS: BP 93/42
[2021-01-17] MEDS: tamsulosin 0.4mg capsule PO SCH (20:51)
[2021-01-17] MEDS: clozapine 25mg tablet PO SCH (20:51)
[2021-01-17] MEDS ORDERED: DESMOPRESSIN ACETATE 0.1 MG TABLET PO SCH (21:00)
--- NOTE | 2021-01-17 22:24 | NUR ---
Nursing Progress Note: Legal hold: LPS Client on involuntary status for GD Report received from nurse with use of SBAR: Cristiano RN Why are they here: Clients mother contacted EMS because the client was not eating, drinking, or performing basic ADL's. Client refused to be transported to the ED by EMS. [facility] was notified and brought client to hospital. The client was agitated upon arrival to the ED, and received IM PRN Meds for agitation. Client is known to [facility] and has had prior admissions. Diagnosis/presenting symptoms: Schizophrenia, mood disorder, Meth use. Assessment What has happened this shift: Patient observed sleeping in bed at the beginning of shift. Pleasant and cooperative with care; compliant with medication. Nicotine patch removed/discarded by underwriter mortgage loan. Patient denies SI, HI, A/VH; continues to respond to IS. Patient remained in his bed and did not participate in HS snack this shift; observed sleeping and does not appear to be having difficulty. S/I, H/I: Denies A/VH: Responding to IS Sleep: Refer to sleep assessment ADL's: Independent Group attendance: NA Were meds taken: Yes Any med S/E: None observed or reported Mental Status Exam Appearance: Disheveled; wearing green unit attire and sweater. Eye contact: Good Behavior: Pleasant and cooperative, isolative Speech: Clear, audible Mood: Fatigued Affect: Congruent to mood Thought process: Poverty of thought Thought Content: Meeting needs Cognition: A&O X3 Insight: Poor Judgment: Poor Interventions PRN's used: None Therapeutic interventions: Maintained a safe and supportive environment, ensured contract for safety, provided clear and simple instructions, attempted to orient to reality, encouraged independent performance of ADLs, monitored behaviors and need for intervention, and maintained Q 15min safety checks. Restraints/seclusion/emergency medication: N/A Justification of Continued Inpatient Treatment: Per Dr. Deleon, pt. continues to be gravely disabled and requires a safe and supportive environment. He will discharge to an IMD tomorrow.
[2021-01-18] MEDS: NICOTINE POLACRILEX 2 MG LOZENGE BC PRN ×3 (06:44→14:44)
[2021-01-18] MEDS: nicotine 21mg patch - 24 hr TD SCH (07:47)
[2021-01-18] MEDS: clozapine 100mg tablet PO SCH ×2 (07:47→20:32)
[2021-01-18] MEDS: docusate sod 250mg capsule PO SCH ×2 (07:47→20:32)
[2021-01-18] MEDS: LORazepam 0.5 MG tablet PO PRN (07:47)
[2021-01-18 08:00] VITALS: BP 115/64
--- NOTE | 2021-01-18 13:16 | NUR ---
Nursing Progress Note: Legal hold: LPS Client on involuntary status for GD Report received from nurse with use of SBAR: Jeannie De Guzman RN Why are they here: Clients mother contacted EMS because the client was not eating, drinking, or performing basic ADL's. Client refused to be transported to the ED by EMS. [facility] was notified and brought client to hospital. The client was agitated upon arrival to the ED, and received IM PRN Meds for agitation. Client is known to [facility] and has had prior admissions. Diagnosis/presenting symptoms: Schizophrenia, mood disorder, Meth use. Assessment What has happened this shift: Received pt. up in the hallway at the beginning of the shift, he greeted staff appropriately and requested to have the television turned on in the Recreation Room. A short while later, pt. was observed to be actively responding aloud directed towards the television. As the morning progressed, pt. began to exhibit increased restlessness and agitation AEB pacing the hallway and talking loudly in an agitated manner. When approached by this production underwriter, pt. yelled out in a disorganized manner, " MARILOU is being a jerk! I'm waiting for [employer], sitcom assholes!" He was able to be redirected and PRN Ativan administered with effectiveness. Pt. remained visible on the unit throughout the day, but remains guarded and is not observed to be interacting with others. He remains disorganized and continues to respond aloud to internal stimuli throughout the day. However, pt is able to respond appropriately to staff at intervals and make his needs known, will continue to monitor. S/I, H/I: Denies A/VH: Pt. reports ongoing A/ABRAHAM Sleep: Sleep hours are 8.75, and pt. reports he slept well but awoke early ADL's: Pt. requires some encouragement and direction Group attendance: N/A Were meds taken: Yes Any med S/E: None Mental Status Exam Appearance: Hair and clothing continue to be disheveled Eye contact: Good Behavior: Cooperative, restless, agitated at times, guarded, and actively responding to internal stimuli Speech: Tangental Mood: Pleasant, however restless Affect: Labile Thought process: Linear, but becomes disorganized with continued conversation Thought Content: Ongoing A/ABRAHAM and some paranoid delusions Cognition: A&O X3 Insight: Poor Judgment: Poor Interventions PRN's used: None Therapeutic interventions: Maintained a safe and supportive environment, ensured contract for safety, provided clear and simple instructions, attempted to orient to reality, encouraged independent performance of ADLs, monitored behaviors and need for intervention, and maintained Q 15min safety checks. Restraints/seclusion/emergency medication: N/A Justification of Continued Inpatient Treatment: Per GENE Post, pt. continues to require a safe and therapeutic environment. He will discharge to an IMD.
[2021-01-18 20:05] VITALS: BP_SYST 129
[2021-01-18] MEDS: tamsulosin 0.4mg capsule PO SCH (20:32)
[2021-01-18] MEDS: clozapine 25mg tablet PO SCH (20:32)
[2021-01-18] MEDS: tolterodine 2mg SR capsule (24hr) PO SCH (20:32)
--- NOTE | 2021-01-19 01:47 | NUR ---
Nursing Progress Note: Legal hold: LPS Client on involuntary status for GD Report received from nurse with use of SBAR: COLE Clark Why are they here: Clients mother contacted EMS because the client was not eating, drinking, or performing basic ADL's. Client refused to be transported to the ED by EMS. [facility] was notified and brought client to hospital. The client was agitated upon arrival to the ED, and received IM PRN Meds for agitation. Client is known to [facility] and has had prior admissions. Diagnosis/presenting symptoms: Schizophrenia, mood disorder, Meth use. Assessment What has happened this shift: Patient pacing the unit at the beginning of shift. Pleasant and cooperative with care; compliant with medication. PRN Ativan and Nicotine lozenge provided per request; Nicotine patch removed/discarded by proposal lead writer. Patient denies SI, HI, A/VH; appears to be responding to IS. No outburst presented this shift. Patient participated in HS snack prior to bed; observed sleeping and does not appear to be having difficulty. S/I, H/I: Denies A/VH: Responding to IS Sleep: Refer to sleep assessment ADL's: Independent Group attendance: NA Were meds taken: Yes Any med S/E: None observed or reported Mental Status Exam Appearance: Disheveled; wearing green unit attire and sweater. Eye contact: Good Behavior: Pleasant and cooperative, pacing the mccarthy Speech: Clear, audible Mood: Anxious Affect: Congruent to mood Thought process: Poverty of thought Thought Content: Meeting needs Cognition: A&O X3 Insight: Poor Judgment: Poor Interventions PRN's used: Ativan and Nicotine lozenge Therapeutic interventions: Maintained a safe and supportive environment, ensured contract for safety, provided clear and simple instructions, attempted to orient to reality, encouraged independent performance of ADLs, monitored behaviors and need for intervention, and maintained Q 15min safety checks. Restraints/seclusion/emergency medication: N/A Justification of Continued Inpatient Treatment: Per Dr. Deleon, pt. continues to be gravely disabled and requires a safe and supportive environment. He will discharge to an IMD tomorrow.
[2021-01-19] MEDS: NICOTINE POLACRILEX 2 MG LOZENGE BC PRN ×4 (06:56→21:25)
[2021-01-19 07:31] VITALS: BP 115/68
[2021-01-19] MEDS: nicotine 21mg patch - 24 hr TD SCH (07:42)
[2021-01-19] MEDS: clozapine 25mg tablet PO SCH ×2 (07:42→20:17)
[2021-01-19] MEDS: clozapine 100mg tablet PO SCH ×2 (07:42→20:17)
[2021-01-19] MEDS: docusate sod 250mg capsule PO SCH ×2 (07:43→20:17)
[2021-01-19] MEDS: LORazepam 0.5 MG tablet PO PRN (10:31)
--- NOTE | 2021-01-19 17:49 | NUR ---
Nursing Progress Note: IAM Legal hold: LPS Client on involuntary status for GD Report received from nurse with use of SBAR: Areli RN Why are they here: Clients mother contacted EMS because the client was not eating, drinking, or performing basic ADL's. Client refused to be transported to the ED by EMS. [employer] was notified and brought client to hospital. The client was agitated upon arrival to the ED, and received IM PRN Meds for agitation. Client is known to [facility] and has had prior admissions. Diagnosis/presenting symptoms: Schizophrenia, mood disorder, Meth use. Assessment What has happened this shift: Received patient awake in the group room at shift change. Pt later was sitting in the recreation room responding to internal stimuli. Pt was loud stating PBS and Ambrocio Lainezfeld I love that martha. He then began swearing when asked what was wrong pt stated Its those dumont apparitions! I hate when come at me! I fucking hate it! Pt was asked to keep his voice down and pt complied. A short time later pt was walking the mccarthy singing how much is that doggie in the windowarfarf. Pt then yelled out Television just doesnt want Iam to smoke a cigarette, not just yet. Pt was able to be redirected and PRN Ativan was administered with effect. Pt inquired throughout the day about when he was going to be discharged I am supposed to leave for [place] today. Machine Stacker explained that provider was adjusting his medication pt stated okay. S/I, H/I: Pt denies both. A/VH: Pt. reports ongoing A/ABRAHAM Sleep: 8.25 hours per sleep assessment. No naps today. ADL's: Pt. requires some encouragement and direction Group attendance: Declined. Were meds taken: Yes, without issue. Any med S/E: None reported or observed. Mental Status Exam Appearance: Hair and clothing continue to be disheveled Eye contact: Good Behavior: Cooperative, restless, agitated at times, guarded, and actively responding to internal stimuli Speech: Tangential, rambling at times. Clear Mood: Restless, responding to internal stimuli. Affect: Labile Thought process: Linear, but becomes disorganized with continued conversation Thought Content: Ongoing A/ABRAHAM and some paranoid delusions Cognition: A&O X3 Insight: Poor Judgment: Poor Interventions PRN's used: Nicotine lozenge, Ativan Therapeutic interventions: Maintained a safe and supportive environment, ensured contract for safety, provided clear and simple instructions, attempted to orient to reality, encouraged independent performance of ADLs, monitored behaviors and need for intervention, and maintained Q 15min safety checks. Restraints/seclusion/emergency medication: N/A Justification of Continued Inpatient Treatment: GENE Bruno, pt. continues to require a safe and therapeutic environment. He will discharge to an IMD.
[2021-01-19 19:46] VITALS: BP 112/64
[2021-01-19] MEDS: tolterodine 2mg SR capsule (24hr) PO SCH (20:17)
[2021-01-19] MEDS: tamsulosin 0.4mg capsule PO SCH (20:17)
--- NOTE | 2021-01-20 00:06 | NUR ---
Nursing Progress Note: Legal hold: LPS Client on involuntary status for GD Report received from nurse with use of SBAR: COLE Vitale Why are they here: Clients mother contacted EMS because the client was not eating, drinking, or performing basic ADL's. Client refused to be transported to the ED by EMS. [employer] was notified and brought client to hospital. The client was agitated upon arrival to the ED, and received IM PRN Meds for agitation. Client is known to [facility] and has had prior admissions. Diagnosis/presenting symptoms: Schizophrenia, mood disorder, Meth use. Assessment What has happened this shift: Patient sleeping in bed at the beginning of shift. Pleasant and cooperative with care; compliant with medication. PRN Nicotine lozenge provided per request and Nicotine patch removed/discarded by clinical writer. Patient denies SI, HI, A/VH; does not appear to be responding to IS this shift and no delusional thought content expressed. Patient did not participate in HS snack and only came out of room for Nicotine lozenge and returned to bed; observed sleeping and does not appear to be having difficulty. S/I, H/I: Denies A/VH: Denies Sleep: Refer to sleep assessment ADL's: Independent Group attendance: NA Were meds taken: Yes Any med S/E: None observed or reported Mental Status Exam Appearance: Disheveled; wearing green unit attire and sweater. Eye contact: Good Behavior: Pleasant and cooperative, pacing the mccarthy Speech: Clear, audible Mood: Fatigued Affect: Congruent to mood Thought process: Poverty of thought Thought Content: Meeting needs Cognition: A&O X3 Insight: Poor Judgment: Poor Interventions PRN's used: Nicotine lozenge Therapeutic interventions: Maintained a safe and supportive environment, ensured contract for safety, provided clear and simple instructions, attempted to orient to reality, encouraged independent performance of ADLs, monitored behaviors and need for intervention, and maintained Q 15min safety checks. Restraints/seclusion/emergency medication: N/A Justification of Continued Inpatient Treatment: Per Dr. Deleon, pt. continues to be gravely disabled and requires a safe and supportive environment. He will discharge to an IMD tomorrow.
[2021-01-20] MEDS: clozapine 100mg tablet PO SCH ×2 (07:33→20:28)
[2021-01-20] MEDS: clozapine 25mg tablet PO SCH ×2 (07:33→20:28)
[2021-01-20] MEDS: nicotine 21mg patch - 24 hr TD SCH (07:33)
[2021-01-20] MEDS: docusate sod 250mg capsule PO SCH ×2 (07:34→20:28)
[2021-01-20 08:00] VITALS: BP 120/69
[2021-01-20] MEDS: NICOTINE POLACRILEX 2 MG LOZENGE BC PRN ×2 (16:23→18:30)
--- NOTE | 2021-01-20 16:56 | NUR ---
Nursing Progress Note: Legal hold: LPS Client on involuntary status for GD Report received from RN with use of SBAR Why are they here: Clients mother contacted EMS because the client was not eating, drinking, or performing basic ADL's. Client refused to be transported to the ED by EMS. [employer] was notified and brought client to hospital. The client was agitated upon arrival to the ED, and received IM PRN Meds for agitation. Client is known to [facility] and has had prior admissions. Diagnosis/presenting symptoms: Schizophrenia, mood disorder, Meth use. Assessment What has happened this shift: Received Pt in bed sleeping w/o distress in his room at change of shift. Pt woke for vitals and was cooperative with AM meds. Pt tolerated assessments well and spent most of day resting, walking halls and watching tv. Pt did not have any yelling episodes but did talk to self a bit and appeared to be responding to AHs. Overall pleasant and cooperative. Pt talked about where he might be placed and believes he will only be in an IMD for 2 mos. Pt does not want to be locked up. S/I, H/I: Denies A/VH: Pt. reports ongoing A/ABRAHAM Sleep: None this shift ADL's: Pt. requires encouragement Group attendance: No Were meds taken: Yes Any med S/E: None Mental Status Exam Appearance: Hair and clothing disheveled Eye contact: Good Behavior: Cooperative, restless, agitated at times, guarded, and actively responding to internal stimuli Speech: Disorganized Mood: Pleasant Affect: Labile Thought process: Linear, but becomes disorganized Thought Content: Ongoing A/ABRAHAM and some paranoid delusions Cognition: A&O X3 Insight: Poor Judgment: Poor Interventions PRN's used: None Therapeutic interventions: Maintained a safe and supportive environment, ensured contract for safety, provided clear and simple instructions, attempted to orient to reality, encouraged independent performance of ADLs, monitored behaviors and need for intervention, and maintained Q 15min safety checks. Restraints/seclusion/emergency medication: N/A Justification of Continued Inpatient Treatment: Per GENE Post, pt. continues to require a safe and therapeutic environment. He will discharge to an IMD.
[2021-01-20 19:00] VITALS: BP 131/82
[2021-01-20] MEDS: tamsulosin 0.4mg capsule PO SCH (20:28)
[2021-01-20] MEDS: tolterodine 2mg SR capsule (24hr) PO SCH (20:28)
[2021-01-20] MEDS: LORazepam 0.5 MG tablet PO PRN (20:29)
--- NOTE | 2021-01-20 22:21 | NUR ---
Nursing Progress Note: Legal hold: LPS Client on involuntary status for GD Report received from nurse with use of SBAR: COLE Vitale Why are they here: Clients mother contacted EMS because the client was not eating, drinking, or performing basic ADL's. Client refused to be transported to the ED by EMS. [employer] was notified and brought client to hospital. The client was agitated upon arrival to the ED, and received IM PRN Meds for agitation. Client is known to [facility] and has had prior admissions. Diagnosis/presenting symptoms: Schizophrenia, mood disorder, Meth use. Assessment What has happened this shift: Patient pacing the unit, responding to IS, at the beginning of shift. Pleasant and cooperative with care; compliant with medication. Nicotine patch removed/discarded by specifications writer. PRN Nicotine lozenge and Ativan provided this shift. Patient reports, "I'm fine. I deal with my demons ever day." Patient continued to express he "lives a vulgar life." Patient remained pleasant and cooperative with no outbursts presented. Patient participated in HS snack prior to bed; observed sleeping and does not appear to be having difficulty. S/I, H/I: Denies A/VH: Denies Sleep: Refer to sleep assessment ADL's: Independent Group attendance: NA Were meds taken: Yes Any med S/E: None observed or reported Mental Status Exam Appearance: Disheveled; wearing green unit attire and sweater. Eye contact: Good Behavior: Pleasant and cooperative, pacing the mccarthy Speech: Clear, audible Mood: Anxious, restless Affect: Congruent to mood Thought process: Linear Thought Content: Meeting needs, IS Cognition: A&O X3 Insight: Poor Judgment: Poor Interventions PRN's used: Nicotine lozenge and Ativan Therapeutic interventions: Maintained a safe and supportive environment, ensured contract for safety, provided clear and simple instructions, attempted to orient to reality, encouraged independent performance of ADLs, monitored behaviors and need for intervention, and maintained Q 15min safety checks. Restraints/seclusion/emergency medication: N/A Justification of Continued Inpatient Treatment: Per Dr. Deleon, pt. continues to be gravely disabled and requires a safe and supportive environment. He will discharge to an IMD tomorrow.
[2021-01-21] MEDS: NICOTINE POLACRILEX 2 MG LOZENGE BC PRN ×3 (07:13→13:27)
[2021-01-21 07:41] VITALS: BP 110/72
[2021-01-21 07:42] VITALS: BP 110/72
[2021-01-21] MEDS: nicotine 21mg patch - 24 hr TD SCH (08:06)
[2021-01-21] MEDS: clozapine 100mg tablet PO SCH (08:06)
[2021-01-21] MEDS: clozapine 25mg tablet PO SCH (08:06)
[2021-01-21] MEDS: docusate sod 250mg capsule PO SCH (08:06)
[2021-01-21] MEDS: LORazepam 0.5 MG tablet PO PRN (08:49)
[2021-01-21] MEDS ORDERED: DET2LAC PO (13:26)
[2021-01-21] MEDS ORDERED: FLO0.4C PO (13:26)
--- NOTE | 2021-01-21 14:31 | NUR ---
Discharge Note: Discharge reviewed with patient who is agreeable to discharge to [facility]. Prescription medication and paperwork handed off to [facility] utility worker driver. No s/sx acute distress noted. Patient leaves the facility with [facility] utility worker driver with all of his belongings at 13:37 with the following discharge instructions: Follow-Up: Patient has been scheduled/referred to the following providers for post-hospital discharge and aftercare treatment. Psychiatrist: [facility] [address] [place], [place] Primary Care Provider: Tank Cooper: [facility] Team Patient given community crisis services information and National suicide hotline handout. Resources for education regarding mental illness: [address] [phone] For urgent mental health crisis needs please contact Mobile Crisis Outreach Team Tuesday through Tuesday 8:30am to 5:00pm. . Mobile Crisis Outreach Team [address] [place] [phone] Urgent Out-patient Mental Health Services 365 Days A Year: [facility] [address] [place] [id number] Hours: Mon thru Fri 12pm-9pm Weekends 11am-9pm
[2021-01-22] MEDS ORDERED: clozapine 100mg tablet PO SCH (13:00)
== END 2021-01-21 13:40 | disposition home or self-care (01) | DRG 885 ==
LOC: ER 12:34 → ED HOLD 12-14 16:15 → ADULT MH 12-14 19:16
PROVIDERS: ADMIT Psychiatry & Neurology Psychiatry; ATTEND Psychiatry & Neurology Psychiatry
DX: F25.0 Schizoaffective disorder, bipolar type (principal); F17.210 Nicotine dependence, cigarettes, uncomplicated; F15.10 Other stimulant abuse, uncomplicated; F12.90 Cannabis use, unspecified, uncomplicated; N40.1 Benign prostatic hyperplasia with lower urinary tract symptoms; N39.498 Other specified urinary incontinence; Z20.822 Contact with and (suspected) exposure to COVID-19; K59.00 Constipation, unspecified; Z91.14 Patient's other noncompliance with medication regimen; Z88.8 Allergy status to other drugs, medicaments and biological substances; Z91.19 Patient's noncompliance with other medical treatment and regimen; Z56.0 Unemployment, unspecified
CPT/HCPCS: 36415; 71045; 80053; 80061; 80305; 80320; 81003; 83036; 84443; 85025; 87081; 87635; 99285; C9803; J0515; J1200; J1630; J2060; Q0163